=== PATIENT | male | born 1930 | race Caucasian/White ===

== ENCOUNTER 2016-07-07 12:12 | Inpatient (IN) | payer MEDICARE, OTHER ==
[~2016-07-07] VITALS: Ht 177.8 cm; Wt 74.5 kg
[2016-07-07] MEDS ORDERED: ASPIRIN 81 MG CHEW TABLET As Ordered ONE (12:41)
[2016-07-07 13:04] LABS: DIFF SLIDE NUMBER 277; MEAN CORPUSCULAR HEMOGLOBIN 24.9 pg (27.0-33.0); MEAN CORPUSCULAR HGB CONC 29.8 g/dl (32.0-36.5); MEAN CORPUSCULAR VOLUME 83.6 fl (80.0-96.0); PLATELET COUNT, AUTOMATED 139 k/mm3 (150-450); RED CELL DISTRIBUTION WIDTH 17.2 % (11.5-14.5); WHITE BLOOD COUNT 4.6 K/mm3 (4.0-10.0)
[2016-07-07 13:08] LABS: ANION GAP 9 MEQ/L (8-16); BLOOD UREA NITROGEN 25 MG/DL (7-18); CALCIUM LEVEL 8.7 MG/DL (8.8-10.2); CARBON DIOXIDE LEVEL 26 MEQ/L (21-32); CHLORIDE LEVEL 106 MEQ/L (98-107); GLOMERULAR FILTRATION RATE 55.7 (>35); GLUCOSE, FASTING 82 MG/DL (83-110); POTASSIUM SERUM 4.1 MEQ/L (3.5-5.1); SODIUM LEVEL 141 MEQ/L (136-145)
--- NOTE | 2016-07-07 13:13 | REP ---
Clinical: Chest pain . Comparison: 09/24/2011 . Findings: The mediastinum and cardiac silhouette are stable and within normal limits for portable technique. The lung benites are clear without acute consolidation, effusion, or pneumothorax. Skeletal structures are intact. Impression: Normal portable chest x-ray Signed by Hector Edmond MD 07/07/2016 01:04 P
[2016-07-07] MEDS ORDERED: ISOVUE-370 76% 100ML VIAL (Q9967) As Ordered ONE (13:17)
[2016-07-07 13:38] LABS: BANDS 2 % (< 11); EOSINOPHILS 2 % (0-5); HYPOCHROMASIA 2+
[2016-07-07 13:39] LABS: ANISOCYTOSIS 2+; MICROCYTOSIS 2+; POIKILOCYTOSIS 1+
[2016-07-07] MEDS ORDERED: VITMTA PO (13:45)
[2016-07-07] MEDS ORDERED: LIAL1.2T PO (13:45)
--- NOTE | 2016-07-07 14:13 | REP ---
Clinical: Acute chest pain and shortness of breath . Technique: Axial contrast enhanced images from the thoracic inlet to the upper abdomen using 100 ml Isovue 370 intravenous contrast material with coronal and sagittal re-formations. Findings: Satisfactory enhancement of the pulmonary vasculature is achieved and no filling defects are identified to suggest pulmonary embolus. Thoracic aorta is normal caliber without aneurysm or dissection. Heart and pericardium are normal. Bilateral lung benites are well aerated and clear without acute pulmonary parenchymal consolidation or atelectasis. No nodule or mass lesion. No pleural effusion/reaction. No pneumothorax. No adenopathy. Impression: No evidence for pulmonary embolus. No acute pleuroparenchymal or mediastinal process. Signed by Hector Edmond MD 07/07/2016 02:05 P
[2016-07-07 14:47] LABS: ALBUMIN 3.6 GM/DL (3.2-5.2); AST/SGOT 26 U/L (15-37); BILIRUBIN,TOTAL 0.4 MG/DL (0.2-1.0)
[2016-07-07 14:49] LABS: INR 1.1
[2016-07-07 14:50] LABS: ALKALINE PHOSPHATASE 72 U/L (45-117); ALT/SGPT 21 U/L (12-78); BILIRUBIN,DIRECT 0.1 MG/DL (0.0-0.2); TOTAL PROTEIN 7.6 GM/DL (6.4-8.2)
[2016-07-07] MEDS ORDERED: ACETAMINOPHEN TAB 650MG DOSE (2X325MG) PO PRN (15:30)
[2016-07-07] MEDS ORDERED: ONDANSETRON 4MG/2ML VIAL (J2405) IV PRN (15:30)
--- NOTE | 2016-07-07 16:05 | HPEPDOC ---
Medical History and Physical Date of Admission Jul 07, 2016 at 15:30 History and Physical PRIMARY CARE PROVIDER: ATTENDING: Rhoda Beckford MD CHIEF COMPLAINT: CP/SOB HISTORY OF PRESENT ILLNESS: This is a 86 y/o male with a past medical history of ulcerative colitis, who presents complaining of chest pain and generalized weakness. Patient states she's been having dyspnea on exertion and exertional chest pain over the past month. Describes the pain is midsternal, nonradiating, exertional , nonreproducible, non-positional, nonpleuritic. The patient also has exertional dyspnea as well. No orthopnea or PND. No lower extremity edema. No syncopal episodes. Patient does have a history ulcerative colitis with last colonoscopy 5-6 years ago which she states was unremarkable. Patient follows up with his general passenger agent in [place]. Patient also has history of MDS, follows up with Dr. Arguello with next appointment in September. Has not required any prior transfusions. The patient has a good appetite and believes he lost 10 pounds since the Summer. Denies any melanotic stool/hematochezia/hematuria/hematemesis. PAST MEDICAL HISTORY:As per HPI SOCIAL HISTORY: FAMILY HISTORY:Non contributory ALLERGIES: Please see below. REVIEW OF SYSTEMS: HEENT: Denies sore throat/headache CARDIOVASCULAR: + chest pain on exertion. No palpitations RESPIRATORY: + DIAZ. No cough GASTROINTESTINAL: denies nausea/vomiting GENITOURINARY: Denies dysuria/urinary urgency. MUSCULOSKELETAL: Denies myalgias/arthralgias NEUROLOGICAL: Denies any focal weakness Rest of ROS negative. HOME MEDICATIONS: Please see below. PHYSICAL EXAMINATION: Vitals: (see below) General: No acute distress, laying comfortably in bed. HEENT: Moist mucous membranes. Neck: No JVD or lymphadenopathy Cardiac: RRR, 3/6 MARCELO 2nd RICS with radiation to the carotids. Pulm: Clear to auscultation b/l. No wheezing, rhonchi Abd: NT/ND + BS Ext: No edema or cyanosis LABORATORY DATA: See below. IMAGING: CTA chest 07/07/16 Impression: No evidence for pulmonary embolus. No acute pleuroparenchymal or mediastinal process. MICROBIOLOGY: Please see below. ASSESSMENT/PLAN: Symptomatic anemia- the patient denies any occult bleeding. Does have a history of ulcerative colitis however states his last flare was in the fall. No hematochezia/melanotic stools. No source of bleeding. FOBT positive in the ED per ED physician. Patient does have a history ulcerative colitis with increased risk of colon cancer. Will have surgery on board for possible colonoscopy during this admission. Patient is being transfused 2 units PRBC. CBC every 6 hours. Hemodynamically stable. History of MDS- MCV within normal limits. Follows up with Dr. Arguello outpatient. Ulcerative colitis- continue home meds DVT prophylaxis- SCDs Vital Signs BP 158/78, HR 84, RR 16, O2 sat 100% RA, Afebrile. Laboratory Data Labs 24H Laboratory Tests 2 07/07/16 12:35: Activated Partial Thromboplast Time 34.9, Aspartate Amino Transf (AST/SGOT) 26, Alanine Aminotransferase (ALT/SGPT) 21, Alkaline Phosphatase 72, Total Bilirubin 0.4, Direct Bilirubin 0.1, Albumin 3.6, Albumin/Globulin Ratio 0.90L, Anion Gap 9, Anisocytosis 2+, Atypical Lymphocytes 3, Band Neutrophils 2, Calcium Level 8.7L, Creatine Kinase MB 1.3, Creatine Kinase MB Relative Index 2.13, Eosinophils (Manual) 2, Glomerular Filtration Rate 55.7, Hypochromasia 2+ , Lymphocytes (Manual) 40, Metamyelocytes 3H, Microcytosis 2+, Monocytes (Manual ) 3, Myelocytes 5H, Neutrophils 41, Platelet Estimate DECREASED, Poikilocytosis 1+, Promyelocytes 1H, Prothromb Time International Ratio 1.10, Prothrombin Time 14.3, Total Creatine Kinase 61, Total Protein 7.6, Troponin I < 0.02 CBC/BMP Laboratory Tests 07/07/16 12:35 Red Blood Count 2.62 L, Mean Corpuscular Volume 83.6, Mean Corpuscular Hemoglobin 24.9 L, Mean Corpuscular Hemoglobin Concent 29.8 L, Red Cell Distribution Width 17.2 H Home Medications Scheduled Mesalamine (Lialda) 1.2 Gm Tab 1.2 GM PO BID Multivitamins *[facility] STOCKED* (Thera M Plus *[facility] STOCKED*) 1 Tab Tab 1 TAB PO DAILY Allergies Coded Allergies: No Known Allergies (Unverified , 07/07/16) RHODA BECKFORD MD Jul 07, 2016 16:05
[2016-07-07 20:00] VITALS: BP 144/65; PULSE 83
--- NOTE | 2016-07-07 20:15 | ECGEPIP ---
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
[2016-07-07] MEDS ORDERED: PANTOPRAZOLE 40MG INJ (PROTONIX) (C9113) As Ordered ONE (21:00)
[2016-07-07] MEDS: PANTOPRAZOLE 40MG INJ (PROTONIX) (C9113) IV SCH (21:03)
[2016-07-07] MEDS: MESALAMINE 400 MG CAPSULE DELAYED RELEASE (DELZICOL) PO SCH (21:03)
[2016-07-07 21:50] LABS: MEAN CORPUSCULAR VOLUME 84.6 fl (80.0-96.0); RED CELL DISTRIBUTION WIDTH 16.7 % (11.5-14.5); WHITE BLOOD COUNT 4.7 K/mm3 (4.0-10.0)
[2016-07-08] VITALS: BP 151/68; PULSE 87
[2016-07-08 01:53] LABS: MEAN CORPUSCULAR HEMOGLOBIN 26.8 pg (27.0-33.0); MEAN CORPUSCULAR VOLUME 83.8 fl (80.0-96.0); RED CELL DISTRIBUTION WIDTH 16.8 % (11.5-14.5); WHITE BLOOD COUNT 4.4 K/mm3 (4.0-10.0)
[2016-07-08 04:00] VITALS: BP 149/69; PULSE 82
[2016-07-08 06:48] LABS: MEAN CORPUSCULAR HEMOGLOBIN 26.6 pg (27.0-33.0); MEAN CORPUSCULAR HGB CONC 31.8 g/dl (32.0-36.5); MEAN CORPUSCULAR VOLUME 83.5 fl (80.0-96.0); RED CELL DISTRIBUTION WIDTH 16.8 % (11.5-14.5); WHITE BLOOD COUNT 4.1 K/mm3 (4.0-10.0)
[2016-07-08 07:01] LABS: ALBUMIN 3.2 GM/DL (3.2-5.2); ALBUMIN/GLOBULIN RATIO 0.82 (1.00-1.93); BILIRUBIN,TOTAL 0.7 MG/DL (0.2-1.0); CALCIUM LEVEL 8.2 MG/DL (8.8-10.2); CREATININE FOR GFR 1.25 MG/DL (0.70-1.30); GLOMERULAR FILTRATION RATE 58.3 (>35); POTASSIUM SERUM 4.2 MEQ/L (3.5-5.1); TOTAL PROTEIN 7.1 GM/DL (6.4-8.2)
[2016-07-08 08:00] VITALS: BP 155/67
[2016-07-08] MEDS: PANTOPRAZOLE 40MG INJ (PROTONIX) (C9113) IV SCH ×2 (08:48→20:32)
[2016-07-08] MEDS: MESALAMINE 400 MG CAPSULE DELAYED RELEASE (DELZICOL) PO SCH ×2 (08:49→20:33)
--- NOTE | 2016-07-08 11:07 | CR ---
DATE OF CONSULTATION: 07/07/2016 REASON FOR CONSULTATION: Anemia, possible GI bleeding. HISTORY OF PRESENT ILLNESS: The patient is an 86-year-old man who presented to the emergency department with what he described as a month or month and a half of some dyspnea on exertion with some chest discomfort. The pain was intermittent as was the shortness of breath and completely associated with exertion. He denied any chest discomfort at rest. He has been feeling somewhat weaker. He has a history of a myelodysplastic syndrome and has previously undergone a bone marrow biopsy with hematology/oncology. He also has a history of longstanding ulcerative colitis. His most recent colonoscopy done locally was in 2007, though the patient reports that he has had his most recent colonoscopy in [place] about 5 years ago. The patient reports that he has had a mild weight loss. He has not noticed any melena or hematochezia. He denies any abdominal pain. He presented to the emergency department where he was found to have a hematocrit of approximately 21%. He is being admitted for a transfusion and further evaluation. I was asked to evaluate the patient as well regarding potential bleeding. MEDICATIONS: Are as listed in his chart. ALLERGIES: No known drug allergies. MEDICAL HISTORY: Significant for his history of ulcerative colitis. He has a history of myelodysplastic syndrome, though apparently this was mild and he has not previously required transfusion. PAST SURGICAL HISTORY: The patient has had multiple colonoscopies. He has had transrectal ultrasound guided biopsy of prostate. REVIEW OF SYSTEMS: Reveals no history of prior palpitations or angina. Prior to his current symptoms, he has not complained of any dyspnea on exertion. He denies any cough or sputum production. He denies any dysuria or hematuria. He has occasional bouts of diarrhea but has not noticed any rectal bleeding or melena. Denies any significant bone or joint problems. Remainder of the review of systems is unremarkable. PHYSICAL EXAM: Shows a pleasant, alert, elderly man lying quietly on the ER stretcher. He is accompanied by a woman I take to be his spouse as well as two younger woman. He is alert, oriented and cooperative. Sclerae are anicteric. Mucous membranes are moist. He has several slightly raised and ulcerated or crusted lesions of the forehead and left side of the neck that I suspect are small superficial skin cancers. Heart exam shows a regular rhythm. He does have a 2-3/6 systolic murmur. Lungs are clear to auscultation bilaterally. The abdomen is thin, soft and nontender. Extremities are without edema. His laboratory studies show a white count of 4.6 with a hemoglobin of 6.5, hematocrit of 21.9 and a platelet count of 139,000. His differential shows 41% neutrophils, 40% lymphocytes, 2% bands, 3% monocytes and 2% eosinophils. Chemistry profile shows a sodium of 141, potassium 4.1, chloride 106, CO2 of 26, BUN of 25, creatinine 1.3 and glucose of 82. His liver function tests are normal and the protein is 7.6 with an albumin of 3.6. PT/INR and PTT are normal. Chest x-ray done portably in the emergency department showed no abnormalities. A CT angiography of the chest was also obtained today which showed no evidence of pulmonary embolus with no acute pulmonary process. IMPRESSION: 1. Marked symptomatic anemia with exertional shortness of breath and chest discomfort. 2. History of myelodysplastic syndrome. 3. Long standing ulcerative colitis. 4. Benign prostatic hyperplasia. RECOMMENDATIONS: Certainly the patient requires transfusion given his significant symptoms, his advanced age, and his markedly low hemoglobin and hematocrit. The patient does have a history of ulcerative colitis so it is certainly possible that he has some subclinical blood loss. His most recent colonoscopy done in [place] was about 5 years ago by his recollection. He has not noticed any gross blood and he denies any abdominal pain. He had a digital rectal examination in the emergency department which reportedly showed guaiac positive material without gross blood. It may be that the patient's anemia is due to his myelodysplastic syndrome, perhaps with acute worsening. Certainly this will require further evaluation. He certainly does not appear to require any urgent surgical intervention. It may be appropriate for him to have a further evaluation endoscopically at some point in his evaluation. I will check back on the patient tomorrow to see what his status is at that time.
[2016-07-08 12:00] VITALS: BP 122/58
--- NOTE | 2016-07-08 15:54 | IPNPDOC ---
Subjective Date Seen The patient was seen on 07/08/16. Subjective Chief Complaint/HPI The patient is a 86-year-old male admitted with a reason for visit of Chest Pain ; Gi Bleed. General: Denies: Chills, Night Sweats Constitutional: Denies: Chills, Fever Eyes: Denies: Pain, Vision change ENT: Denies: Ear Pain, Head Aches Skin: Denies: Lesions, Rash Pulmonary: Denies: Cough, Dyspnea Cardiovascular: Denies: Chest Pain, Palpitations Gastrointestinal: Denies: Nausea, Vomiting Hematologic: Denies: Bleeding Excessively, Bruising Objective Physical Examination General Exam: Positive: Alert, Cooperative, No Acute Distress ENT Exam: Positive: Atraumatic, Mucous membr. moist/pink Neck Exam: Negative: JVD Chest Exam: Positive: Clear to auscultation, Normal air movement Heart Exam: Positive: Normal S1, Normal S2, Rate Normal Abdomen Exam: Positive: Tenderness, Negative: Soft Extremity Exam: Negative: Swelling, Tenderness Assessment /Plan Plan/VTE VTE Prophylaxis Ordered?: Yes Plan Symptomatic anemia possibly 2/2 underlying MDS, with Hx of Ulcerative Colitis No signs of overt bleeding noted during admission, however the patient is noted to be FOBT positive 2 units of packed red blood cells transfused Patient remains hemodynamically stable at this time We will continue to monitor the patient's hemoglobin level History of MDS MCV within normal limits Follows up with Dr. Arguello outpatient. Ulcerative colitis Continue mesalamine DVT prophylaxis- SCDs Disposition-patient's diet advanced, anticipate discharge in the next 24 hours if the patient remains hemodynamically stable. VS, I&O, 24H, Mona Vital Signs/I&O Vital Signs Date Time Temp Pulse Resp B/P Pulse Ox O2 Delivery O2 Flow Rate FiO2 07/08/16 12:00 96.8 77 18 122/58 98 Room Air I&O- Last 24 Hours up to 6 AM 07/08/16 06:00 Intake Total 600 ml Output Total 1825 ml Balance -1225 ml Laboratory Data 24H LABS Laboratory Tests 2 07/08/16 06:22: Blood Urea Nitrogen 20H, Creatinine 1.25, Sodium Level 141, Potassium Level 4.2 , Chloride Level 108H, Carbon Dioxide Level 26, Calcium Level 8.2L, Aspartate Amino Transf (AST/SGOT) 19, Alanine Aminotransferase (ALT/SGPT) 19, Alkaline Phosphatase 66, Total Bilirubin 0.7#, Total Protein 7.1, Albumin 3.2, Albumin/ Globulin Ratio 0.82L, Anion Gap 7L, Glomerular Filtration Rate 58.3 CBC/BMP Laboratory Tests 07/07/16 21:16 Red Blood Count 3.12 L, Mean Corpuscular Volume 84.6, Mean Corpuscular Hemoglobin 27.0, Mean Corpuscular Hemoglobin Concent 32.0, Red Cell Distribution Width 16.7 H 07/08/16 01:42 Red Blood Count 3.06 L, Mean Corpuscular Volume 83.8, Mean Corpuscular Hemoglobin 26.8 L, Mean Corpuscular Hemoglobin Concent 32.0, Red Cell Distribution Width 16.8 H 07/08/16 06:22 Red Blood Count 3.17 L, Mean Corpuscular Volume 83.5, Mean Corpuscular Hemoglobin 26.6 L, Mean Corpuscular Hemoglobin Concent 31.8 L, Red Cell Distribution Width 16.8 H, Calcium Level 8.2 L, Aspartate Amino Transf (AST/SGOT ) 19, Alanine Aminotransferase (ALT/SGPT) 19, Alkaline Phosphatase 66, Total Bilirubin 0.7 #, Total Protein 7.1, Albumin 3.2 QUINTON JEONG MD Jul 08, 2016 15:54
[2016-07-08 16:15] LABS: INR 1.13
[2016-07-08 16:26] LABS: MEAN CORPUSCULAR HEMOGLOBIN 26.6 pg (27.0-33.0); MEAN CORPUSCULAR HGB CONC 31.5 g/dl (32.0-36.5); MEAN CORPUSCULAR VOLUME 84.5 fl (80.0-96.0); RED CELL DISTRIBUTION WIDTH 16.9 % (11.5-14.5); WHITE BLOOD COUNT 3.8 K/mm3 (4.0-10.0)
--- NOTE | 2016-07-08 17:13 | EDDOCDS ---
Nurse's Notes [facility] Name: Chloe Torres Age: 86 yrs Sex: Male : 1930 Arrival Date: 07/07/2016 Time: 12:12 Bed Admit Hold Private MD: Kvng Thomas A. 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 Presenting complaint:. Aspirin was not taken prior to arrival. Adult Sepsis Screening: The patient does not have new or worsening altered mentation. Patient's respiratory rate is less than 22. Systolic blood pressure is greater than 100. Patient has a qSOFA score of 0- Negative Sepsis Screen. Suicide/Homicide risk assessment- the patient denies having any suicidal and/or homicidal ideations and does not present with any other emotional, behavioral or mental health complaints. Status: Patient is not a service assistant or dependent. Transition of care: patient was not received from another setting of care. 12:14 Acuity: NANCY Level 2 ml6 12:14 Method Of Arrival: Walkin/Carried/Asstd ml6 Triage Assessment: 12:25 General: Appears in no apparent distress, comfortable. Pain: Location: chest Pain ml6 currently is 5 out of 10 on a pain scale. Pain does not radiate. Quality of pain is described as aching. Neurological: No deficits noted. Cardiovascular: Capillary refill < 3 seconds is brisk in bilateral fingers toes Heart tones S1 S2 present Edema is absent. Pulses are all present. Chest pain is described as mild, quality is pressure, is located in anterior chest wall radiates Does not radiate. episodes are continuous began 2 hours prior to arrival. Respiratory: Airway is patent Respiratory effort is even, unlabored, Respiratory pattern is regular, symmetrical, Breath sounds are clear bilaterally. Historical: - Allergies: no known allergies; - Home Meds: 1. Lialda 1.2 gram oral TbEC twice a day (Last dose: 07/07/2016 07:00) - PMHx: IBS; [place]; - PSHx: Colonoscopy; - Social history: Smoking status: Patient uses tobacco products, current some day smoker. No barriers to communication noted, The patient speaks fluent Grenadian, Speaks appropriately for age. - : The pt / caregiver states he / she is not on anticoagulants. Home medication list is obtained from the patient. - Exposure Risk Screening:: None identified. Screenin:48 Screening information is obtained from the patient. Fall risk: No risks identified. hs1 Assistance ADL's: requires no assistance with activities of daily living. Abuse/DV Screen: The patient / caregiver reports he/she is: not in a situation that causes fear, pain or injury. Nutritional screening: No deficits noted. Advance Directives: There is no active DNR order. home support is adequate. Assessment: 12:46 General: Appears in no apparent distress, comfortable, Behavior is appropriate for age, hs1 cooperative. 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 Gait is steady, Reports feeling tired all the time. "Blah" feeling. Cardiovascular: Rhythm is sinus rhythm Chest pain is denied. Respiratory: Airway is patent Respiratory effort is even, unlabored, Respiratory pattern is regular, symmetrical. 13:50 General: Appears patient transported to CT at this time. Tolerated test with no issues. hs1 Patient aware of waiting for radiology results and is also aware of admission at this time. Patient has no other questions or needs. . 14:52 General: Appears in no apparent distress, comfortable, Behavior is appropriate for age, hs1 cooperative, pleasant. Pain: Denies pain. Neurological: No deficits noted. Cardiovascular: Rhythm is sinus rhythm No ectopy. Respiratory: No deficits noted. Airway is patent Respiratory effort is even, unlabored, Respiratory pattern is regular, symmetrical. Derm: Skin is pink, warm & dry. normal. 15:53 General: Appears in no apparent distress, comfortable, Behavior is appropriate for age, hs1 cooperative. Pain: Denies pain. Cardiovascular: Rhythm is sinus rhythm No ectopy. Respiratory: Airway is patent Respiratory effort is even, unlabored, Respiratory pattern is regular, symmetrical. Derm: Skin is pink, warm & dry. normal. Vital Signs: 12:14 BP 158 / 78; Pulse 98; Resp 18; Temp 96.7(O); Pulse Ox 100% on R/A; Weight 65.32 kg jrd (R); Height 5 ft. 10 in. (177.80 cm); Pain 2/10; 12:39 BP 133 / 62 (auto/); hs1 12:40 Pulse 84 MON; Pulse Ox 100% ; hs1 12:54 BP 129 / 63 (auto/); hs1 12:54 Pulse 84 MON; Pulse Ox 99% ; hs1 13:09 BP 139 / 65 (auto/); hs1 13:09 Pulse 80 MON; Pulse Ox 98% ; hs1 13:24 Pulse 88 MON; Pulse Ox 100% ; hs1 13:24 BP 132 / 59 (auto/); hs1 13:39 BP 130 / 58 (auto/); hs1 13:40 Pulse 82 MON; Pulse Ox 98% ; hs1 13:53 Pulse 86 MON; Pulse Ox 98% ; hs1 13:54 BP 123 / 59 (auto/); hs1 14:09 BP 141 / 62 (auto/); hs1 14:10 Pulse 86 MON; Pulse Ox 100% ; hs1 14:24 BP 139 / 65 (auto/); hs1 14:25 Pulse 86 MON; Pulse Ox 99% ; hs1 14:39 BP 136 / 65 (auto/); hs1 14:40 Pulse 84 MON; Pulse Ox 99% ; hs1 14:54 BP 143 / 64 (auto/); hs1 14:55 Pulse 84 MON; Pulse Ox 99% ; hs1 15:09 BP 131 / 77 (auto/); hs1 15:09 Pulse 86 MON; Pulse Ox 99% ; hs1 15:24 BP 138 / 65 (auto/); hs1 15:25 Pulse 88 MON; Pulse Ox 99% ; hs1 15:39 BP 141 / 69 (auto/); hs1 15:39 Pulse 90 MON; Resp 18; Temp 96.9(O); Pulse Ox 99% ; Pain 0/10; hs1 12:14 Body Mass Index 20.66 (65.32 kg, 177.80 cm) jrd Vitals: 12:14 Log In Time: July 07, 2016 at 12:10. RN notified that patient meets Red Flag jrd criteria. ED Course: 12:13 Patient visited by Tony Wu PCA. jrd 12:13 Patient moved to Waiting jrd 12:14 Kvng Thomas is Private Physician. jrd 12:15 Devi, Sherri, RN is Primary Nurse. ml6 12:15 Glenn Acuña MD is Attending Physician. br1 12:15 Patient moved to 14 ml6 12:16 Patient visited by Tony Wu PCA. jrd 12:23 Triage Initiated ml6 12:24 EKG done. (by ED staff). Reviewed by Glenn Acuña MD. jml1 12:26 Patient visited by Jose Armando Prado. jml1 12:28 Patient visited by Glenn Acuña MD. br1 12:38 Basic Metabolic Profile Sent. mb9 12:38 CBC with Diff Sent. mb9 12:38 Cardiac Injury Profile Sent. mb9 12:38 Troponin Sent. mb9 12:38 Inserted saline lock: 18 gauge in left forearm and blood collected. The patient mb9 tolerated the procedure well. 13:26 Type and Cross, Packed Cells Sent. srm 13:26 TYPE & SCREEN Sent. srm 13:26 DIFFERENTIAL NO CHARGE Sent. srm 13:26 PTT Sent. srm 13:26 PT/INR Sent. srm 13:27 Patient visited by Glenn Acuña MD. br1 13:34 COUNT INCLUDES THE [facility] Payment Agreement was scanned into [email or web address] and attached to record. lg 13:48 The patient / caregiver is instructed regarding the plan of care and ED course. Cardiac hs1 monitor on. Pulse ox on. NIBP on. 13:51 Chest, 1 View Returned. EDMS 14:03 Patient visited by Sherri Quinonez RN. hs1 14:27 Chris Beckford is Hospitalizing Provider. br1 14:36 CT Chest Angio R/O PE Returned. EDMS 16:47 Patient moved to 20 kcs 21:07 EKG-ADULT Returned. EDMS 21:09 Patient moved to Admit Hold sls1 07/08 00:46 Primary Nurse role handed off by Sherri Quinonez RN sls1 Administered Medications: 07/07 12:46 Drug: Aspirin 324 mg [aspirin 81 mg chewable tablet (4 tabs)] Route: PO; hs1 Order Results: Lab Order: Basic Metabolic Profile; SPEC'M 07/07/16 12:35 Test: GLUCOSE, FASTING; Value: 82; Range: 83-110; Abnormal: Below low normal; Units: MG/DL; Status: F Test: BLOOD UREA NITROGEN; Value: 25; Range: 7-18; Abnormal: Above high normal; Units: MG/DL; Status: F Test: CREATININE FOR GFR; Value: 1.30; Range: 0.70-1.30; Units: MG/DL; Status: F Test: GLOMERULAR FILTRATION RATE; Value: 55.7; Range: >35; Status: F Test: SODIUM LEVEL; Value: 141; Range: 136-145; Units: MEQ/L; Status: F Test: POTASSIUM SERUM; Value: 4.1; Range: 3.5-5.1; Units: MEQ/L; Status: F Test: CHLORIDE LEVEL; Value: 106; Range: 98-107; Units: MEQ/L; Status: F Test: CARBON DIOXIDE LEVEL; Value: 26; Range: 21-32; Units: MEQ/L; Status: F Test: ANION GAP; Value: 9; Range: 8-16; Units: MEQ/L; Status: F Test: CALCIUM LEVEL; Value: 8.7; Range: 8.8-10.2; Abnormal: Below low normal; Units: MG/DL; Status: F Test Note: ; Units are mL/min/1.73 m2 Chronic Kidney Disease Staging per NKF: Stage I & II GFR >=60 Normal to Mildly Decreased Stage III GFR 30-59 Moderately Decreased Stage IV GFR 15-29 Severely Decreased Stage V GFR <15 Very Little GFR Left ESRD GFR <15 on DIRECTOR OF EXHIBITS Test: AST/SGOT; Range: 15-37; Units: U/L; Status: I Test: ALT/SGPT; Range: 12-78; Units: U/L; Status: I Test: ALKALINE PHOSPHATASE; Range: 45-117; Units: U/L; Status: I Test: BILIRUBIN,TOTAL; Range: 0.2-1.0; Units: MG/DL; Status: I Test: BILIRUBIN,DIRECT; Range: 0.0-0.2; Units: MG/DL; Status: I Test: TOTAL PROTEIN; Range: 6.4-8.2; Units: GM/DL; Status: I Test: ALBUMIN; Range: 3.2-5.2; Units: GM/DL; Status: I Test: ALBUMIN/GLOBULIN RATIO; Range: 1.00-1.93; Status: I Lab Order: CBC with Diff; SPEC'M 07/07/16 12:35 Test: WHITE BLOOD COUNT; Value: 4.6; Range: 4.0-10.0; Units: K/mm3; Status: F Test: RED BLOOD COUNT; Value: 2.62; Range: 4.30-6.10; Abnormal: Below low normal; Units: M/mm3; Status: F Test: HEMOGLOBIN; Value: 6.5; Range: 14.0-18.0; Abnormal: Critical Low; Units: g/dl; Status: F Test: HEMATOCRIT; Value: 21.9; Range: 42.0-52.0; Abnormal: Below low normal; Units: %; Status: F Test: MEAN CORPUSCULAR VOLUME; Value: 83.6; Range: 80.0-96.0; Units: fl; Status: F Test: MEAN CORPUSCULAR HEMOGLOBIN; Value: 24.9; Range: 27.0-33.0; Abnormal: Below low normal; Units: pg; Status: F Test: MEAN CORPUSCULAR HGB CONC; Value: 29.8; Range: 32.0-36.5; Abnormal: Below low normal; Units: g/dl; Status: F Test: RED CELL DISTRIBUTION WIDTH; Value: 17.2; Range: 11.5-14.5; Abnormal: Above high normal; Units: %; Status: F Test: PLATELET COUNT, AUTOMATED; Value: 139; Range: 150-450; Abnormal: Below low normal; Units: k/mm3; Status: F Test: NEUTROPHILS; Value: 41; Range: 35-75; Units: %; Status: F Test: BANDS; Value: 2; Range: < 11; Units: %; Status: F Test: LYMPHOCYTES; Value: 40; Range: 16-52; Units: %; Status: F Test: MONOCYTES; Value: 3; Range: 0-8; Units: %; Status: F Test: EOSINOPHILS; Value: 2; Range: 0-5; Units: %; Status: F Test: METAMYELOCYTES; Value: 3; Range: 0-0; Abnormal: Above high normal; Units: %; Status: F Test: MYELOCYTES; Value: 5; Range: 0-0; Abnormal: Above high normal; Units: %; Status: F Test: PROMYELOCYTES; Value: 1; Range: 0-0; Abnormal: Above high normal; Units: %; Status: F Test: ATYPICAL LYMPH; Value: 3; Range: 0-5; Units: %; Status: F Test: HYPOCHROMASIA; Value: 2+; Status: F Test: POIKILOCYTOSIS; Value: 1+; Status: F Test: ANISOCYTOSIS; Value: 2+; Status: F Test: MICROCYTOSIS; Value: 2+; Status: F Lab Order: Cardiac Injury Profile; [facility] 07/07/16 12:35 Test: CPK CREATINE PHOSPHOKINASE; Value: 61; Range: 39-308; Units: U/L; Status: F Test: CK-MB VALUE MASS; Value: 1.3; Range: 0.0-3.6; Units: NG/ML; Status: F Test: MB/CK RELATIVE INDEX; Value: 2.13; Range: < OR =4; Status: F Test Note: ; DIAGNOSIS CRITERIA MMB ng/ml Relative Index (RI) NON-AMI < or = 5 N/A [place] > 5 < or = 4 AMI > 5 > 4 Lab Order: Troponin; [facility] 07/07/16 12:35 Test: TROPONIN I; Value: < 0.02; Range: < 0.10; Units: NG/ML; Status: F Test Note: ; Troponin I Reference Interval for Vivint LOCI: 99th Percentile= 0.00-0.045 ng/ml Risk Stratification: <= 0.10 ng/ml Decreased Risk for Adverse Clinical Events. 0.10-1.50 ng/ml Increased Risk for Adverse Clinical Events. Evaluation of additional criterion and/or repeat testing in 2-6 hours is suggested to rule out myocardial damage. >= 1.50 ng/ml Indicative of Myocardial Injury. Lab Order: PLATELET ESTIMATE; [facility] 07/07/16 12:35 Test: PLATELET ESTIMATE; Value: DECREASED; Range: NORMAL; Status: F Lab Order: TYPE & SCREEN; [facility] 07/07/16 13:24 Test: BLOOD TYPE; Value: A POS; Status: F Test: AB SCREEN (INDIRECT KOBE)VIS; Value: NEGATIVE; Status: F Test: IMMEDIATE SPIN CROSSMATCH; Value: [id number] A POSITIVE Compatible? Y; Status: F Test: IMMEDIATE SPIN CROSSMATCH; Value: [id number] A POSITIVE Compatible? Y; Status: F Lab Order: PT/INR; [facility] 07/07/16 12:35 Test: PROTHROMBIN TIME; Value: 14.3; Range: 12.3-14.5; Units: SECONDS; Status: F Test: INR; Value: 1.10; Status: F Test Note: ; THERAPUTIC HUMAN INR VALUES INDICATIONS NORMAL RANGES PROPHYLAXIS/TREATMENT OF: VENOUS THROMBOSIS 2.0-3.0 PULMONARY EMBOLISM 2.0-3.0 PREVENTION OF SYSTEMIC EMBOLISM FROM: TISSUE HEART VALVES 2.0-3.0 ACUTE MYOCARDIAL INFARCTION 2.0-3.0 VALVULAR HEART DISEASE 2.0-3.0 ATRIAL FIBRILLATION 2.0-3.0 MECHANICAL VALVES(HIGH RISK) 2.5-3.5 RECURRENT MYOCARDIAL INFARCTION 2.5-3.5 Lab Order: PTT; [facility] 07/07/16 12:35 Test: PARTIAL THROMBOPLASTIN TIME; Value: 34.9; Range: 26.6-37.1; Units: SECONDS; Status: F Lab Order: LIVER PROFILE; [facility] 07/07/16 12:35 Test: AST/SGOT; Value: 26; Range: 15-37; Units: U/L; Status: F Test: ALT/SGPT; Value: 21; Range: 12-78; Units: U/L; Status: F Test: ALKALINE PHOSPHATASE; Value: 72; Range: 45-117; Units: U/L; Status: F Test: BILIRUBIN,TOTAL; Value: 0.4; Range: 0.2-1.0; Units: MG/DL; Status: F Test: BILIRUBIN,DIRECT; Value: 0.1; Range: 0.0-0.2; Units: MG/DL; Status: F Test: TOTAL PROTEIN; Value: 7.6; Range: 6.4-8.2; Units: GM/DL; Status: F Test: ALBUMIN; Value: 3.6; Range: 3.2-5.2; Units: GM/DL; Status: F Test: ALBUMIN/GLOBULIN RATIO; Value: 0.90; Range: 1.00-1.93; Abnormal: Below low normal; Status: F Lab Order: COMPLETE BLOOD COUNT; [facility] 07/07/16 21:16 Test: WHITE BLOOD COUNT; Value: 4.7; Range: 4.0-10.0; Units: K/mm3; Status: F Test: RED BLOOD COUNT; Value: 3.12; Range: 4.30-6.10; Abnormal: Below low normal; Units: M/mm3; Status: F Test: HEMOGLOBIN; Value: 8.4; Range: 14.0-18.0; Abnormal: Below low normal; Units: g/dl; Status: F Test: HEMATOCRIT; Value: 26.4; Range: 42.0-52.0; Abnormal: Below low normal; Units: %; Status: F Test: MEAN CORPUSCULAR VOLUME; Value: 84.6; Range: 80.0-96.0; Units: fl; Status: F Test: MEAN CORPUSCULAR HEMOGLOBIN; Value: 27.0; Range: 27.0-33.0; Units: pg; Status: F Test: MEAN CORPUSCULAR HGB CONC; Value: 32.0; Range: 32.0-36.5; Units: g/dl; Status: F Test: RED CELL DISTRIBUTION WIDTH; Value: 16.7; Range: 11.5-14.5; Abnormal: Above high normal; Units: %; Status: F Test: PLATELET COUNT, AUTOMATED; Value: 123; Range: 150-450; Abnormal: Below low normal; Units: k/mm3; Status: F Lab Order: COMPLETE BLOOD COUNT; [facility] 07/08/16 01:42 Test: WHITE BLOOD COUNT; Value: 4.4; Range: 4.0-10.0; Units: K/mm3; Status: F Test: RED BLOOD COUNT; Value: 3.06; Range: 4.30-6.10; Abnormal: Below low normal; Units: M/mm3; Status: F Test: HEMOGLOBIN; Value: 8.2; Range: 14.0-18.0; Abnormal: Below low normal; Units: g/dl; Status: F Test: HEMATOCRIT; Value: 25.6; Range: 42.0-52.0; Abnormal: Below low normal; Units: %; Status: F Test: MEAN CORPUSCULAR VOLUME; Value: 83.8; Range: 80.0-96.0; Units: fl; Status: F Test: MEAN CORPUSCULAR HEMOGLOBIN; Value: 26.8; Range: 27.0-33.0; Abnormal: Below low normal; Units: pg; Status: F Test: MEAN CORPUSCULAR HGB CONC; Value: 32.0; Range: 32.0-36.5; Units: g/dl; Status: F Test: RED CELL DISTRIBUTION WIDTH; Value: 16.8; Range: 11.5-14.5; Abnormal: Above high normal; Units: %; Status: F Test: PLATELET COUNT, AUTOMATED; Value: 115; Range: 150-450; Abnormal: Below low normal; Units: k/mm3; Status: F Lab Order: COMPLETE BLOOD COUNT; [facility] 07/08/16 15:56 Test: WHITE BLOOD COUNT; Value: 3.8; Range: 4.0-10.0; Abnormal: Below low normal; Units: K/mm3; Status: F Test: RED BLOOD COUNT; Value: 3.09; Range: 4.30-6.10; Abnormal: Below low normal; Units: M/mm3; Status: F Test: HEMOGLOBIN; Value: 8.2; Range: 14.0-18.0; Abnormal: Below low normal; Units: g/dl; Status: F Test: HEMATOCRIT; Value: 26.1; Range: 42.0-52.0; Abnormal: Below low normal; Units: %; Status: F Test: MEAN CORPUSCULAR VOLUME; Value: 84.5; Range: 80.0-96.0; Units: fl; Status: F Test: MEAN CORPUSCULAR HEMOGLOBIN; Value: 26.6; Range: 27.0-33.0; Abnormal: Below low normal; Units: pg; Status: F Test: MEAN CORPUSCULAR HGB CONC; Value: 31.5; Range: 32.0-36.5; Abnormal: Below low normal; Units: g/dl; Status: F Test: RED CELL DISTRIBUTION WIDTH; Value: 16.9; Range: 11.5-14.5; Abnormal: Above high normal; Units: %; Status: F Test: PLATELET COUNT, AUTOMATED; Value: 123; Range: 150-450; Abnormal: Below low normal; Units: k/mm3; Status: F Lab Order: COMPLETE BLOOD COUNT; [facility] 07/08/16 06:22 Test: WHITE BLOOD COUNT; Value: 4.1; Range: 4.0-10.0; Units: K/mm3; Status: F Test: RED BLOOD COUNT; Value: 3.17; Range: 4.30-6.10; Abnormal: Below low normal; Units: M/mm3; Status: F Test: HEMOGLOBIN; Value: 8.4; Range: 14.0-18.0; Abnormal: Below low normal; Units: g/dl; Status: F Test: HEMATOCRIT; Value: 26.5; Range: 42.0-52.0; Abnormal: Below low normal; Units: %; Status: F Test: MEAN CORPUSCULAR VOLUME; Value: 83.5; Range: 80.0-96.0; Units: fl; Status: F Test: MEAN CORPUSCULAR HEMOGLOBIN; Value: 26.6; Range: 27.0-33.0; Abnormal: Below low normal; Units: pg; Status: F Test: MEAN CORPUSCULAR HGB CONC; Value: 31.8; Range: 32.0-36.5; Abnormal: Below low normal; Units: g/dl; Status: F Test: RED CELL DISTRIBUTION WIDTH; Value: 16.8; Range: 11.5-14.5; Abnormal: Above high normal; Units: %; Status: F Test: PLATELET COUNT, AUTOMATED; Value: 117; Range: 150-450; Abnormal: Below low normal; Units: k/mm3; Status: F Lab Order: COMPLETE COMPHRENSIVE METABOLI; SPEC'M 07/08/16 06:22 Test: GLUCOSE, FASTING; Value: 82; Range: 83-110; Abnormal: Below low normal; Units: MG/DL; Status: F Test: BLOOD UREA NITROGEN; Value: 20; Range: 7-18; Abnormal: Above high normal; Units: MG/DL; Status: F Test: CREATININE FOR GFR; Value: 1.25; Range: 0.70-1.30; Units: MG/DL; Status: F Test: GLOMERULAR FILTRATION RATE; Value: 58.3; Range: >35; Status: F Test: SODIUM LEVEL; Value: 141; Range: 136-145; Units: MEQ/L; Status: F Test: POTASSIUM SERUM; Value: 4.2; Range: 3.5-5.1; Units: MEQ/L; Status: F Test: CHLORIDE LEVEL; Value: 108; Range: 98-107; Abnormal: Above high normal; Units: MEQ/L; Status: F Test: CARBON DIOXIDE LEVEL; Value: 26; Range: 21-32; Units: MEQ/L; Status: F Test: ANION GAP; Value: 7; Range: 8-16; Abnormal: Below low normal; Units: MEQ/L; Status: F Test: CALCIUM LEVEL; Value: 8.2; Range: 8.8-10.2; Abnormal: Below low normal; Units: MG/DL; Status: F Test: AST/SGOT; Value: 19; Range: 15-37; Units: U/L; Status: F Test: ALT/SGPT; Value: 19; Range: 12-78; Units: U/L; Status: F Test: ALKALINE PHOSPHATASE; Value: 66; Range: 45-117; Units: U/L; Status: F Test: BILIRUBIN,TOTAL; Value: 0.7; Range: 0.2-1.0; Abnormal: Delta; Units: MG/DL; Status: F Test: TOTAL PROTEIN; Value: 7.1; Range: 6.4-8.2; Units: GM/DL; Status: F Test: ALBUMIN; Value: 3.2; Range: 3.2-5.2; Units: GM/DL; Status: F Test: ALBUMIN/GLOBULIN RATIO; Value: 0.82; Range: 1.00-1.93; Abnormal: Below low normal; Status: F Test Note: ; Units are mL/min/1.73 m2 Chronic Kidney Disease Staging per NKF: Stage I & II GFR >=60 Normal to Mildly Decreased Stage III GFR 30-59 Moderately Decreased Stage IV GFR 15-29 Severely Decreased Stage V GFR <15 Very Little GFR Left ESRD GFR <15 on DIRECTOR OF EXHIBITS Lab Order: PROTHROMBIN TIME PROFILE\\E\\INR; SPEC'M 07/08/16 15:55 Test: PROTHROMBIN TIME; Value: 14.6; Range: 12.3-14.5; Abnormal: Above high normal; Units: SECONDS; Status: F Test: INR; Value: 1.13; Status: F Test Note: ; THERAPUTIC HUMAN INR VALUES INDICATIONS NORMAL RANGES PROPHYLAXIS/TREATMENT OF: VENOUS THROMBOSIS 2.0-3.0 PULMONARY EMBOLISM 2.0-3.0 PREVENTION OF SYSTEMIC EMBOLISM FROM: TISSUE HEART VALVES 2.0-3.0 ACUTE MYOCARDIAL INFARCTION 2.0-3.0 VALVULAR HEART DISEASE 2.0-3.0 ATRIAL FIBRILLATION 2.0-3.0 MECHANICAL VALVES(HIGH RISK) 2.5-3.5 RECURRENT MYOCARDIAL INFARCTION 2.5-3.5 Radiology Order: EKG-ADULT Test: EKG-ADULT REASON FOR EXAMINATION: Chest Pain; Stationary ECG Study; [facility] - ED; ; Test Date: 2016-07-07; Pat Name: CHLOE TORRES Department:; Room: -; Gender: M Inside Outside Sales Representative: URBANO; : 1930 Requested By: GLENN Tobar; Order Number: [id number] Reading MD: Jennifer Colon; Measurements; Intervals [place]; Rate: 93 P: 59; MS: 228 QRS: 20; QRSD: 86 T: 40; QT: 349; QTc: 434; Interpretive Statements; 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 The lung benites are clear without acute consolidation,; effusion, or pneumothorax. Skeletal structures are intact.; ; Impression:; Normal portable chest x-ray; ; ; Signed by; Hector Edmond MD 07/07/2016 01:04 P; Radiology Order: CT Chest Angio R/O PE Test: CT Chest Angio R/O PE REASON FOR EXAMINATION: Shortness of Breath;Chest Pain; Clinical: Acute chest pain and shortness of breath .; ; Technique: Axial contrast enhanced images from the thoracic inlet to the upper; abdomen using 100 ml Isovue 370 intravenous contrast material with coronal and; sagittal re-formations.; ; Findings: Satisfactory enhancement of the pulmonary vasculature is achieved and; no filling defects are identified to suggest pulmonary embolus. Thoracic aorta; is normal caliber without aneurysm or dissection. Heart and pericardium are; normal. Bilateral lung benites are well aerated and clear without acute pulmonary; parenchymal consolidation or atelectasis. No nodule or mass lesion. No pleural; effusion/reaction. No pneumothorax. No adenopathy.; ; Impression:; No evidence for pulmonary embolus.; No acute pleuroparenchymal or mediastinal process.; ; ; Signed by; Hector Edmond MD 07/07/2016 02:05 P; Outcome: 14:05 CT Study completed. hs1 14:27 Decision to Hospitalize by Provider. br1 07/08 17:13 Patient left the ED. ms2 Signatures: Dispatcher [employer] EDMS Yoli Rodriguez, RN RN kcs Farrukh Ceja RN RN ms2 Yudi Hunter RN RN [facility] Dorian Dow, Glenn Goel lg, MD MD br1 Francis King RN RN ml6 Sherri Quinonez RN RN hs1 Jessica Enamorado RN RN sls1 Jose Armando Prado jml1 Tony Wu PCA [employer] Will Elias,RN RN mb9 Corrections: (The following items were deleted from the chart) 07/07 14:36 13:26 LIVER PROFILE+LAB sent. [facility] EDFL MTDD
--- NOTE | 2016-07-08 17:13 | EDDOCDS ---
Physician Documentation [facility] Name: Saroj Jain Age: 86 yrs Sex: Male : 1930 Arrival Date: 07/07/2016 Time: 12:12 Bed Admit Hold Private MD: Kvng Thomas A. Disposition: 07/07/16 14:27 Hospitalization ordered by Chris Beckford for Inpatient Admission. Preliminary diagnosis are Gastrointestinal hemorrhage, unspecified, Anemia, unspecified, Chest pain, unspecified. - Bed requested for Admit. - Status is Inpatient Admission. ms2 - Condition is Stable. - Problem is new. - Symptoms are unchanged. Historical: - Allergies: no known allergies; - Home Meds: 1. Lialda 1.2 gram oral TbEC twice a day (Last dose: 07/07/2016 07:00) - PMHx: IBS; CHENEGA; - PSHx: Colonoscopy; - Social history: Smoking status: Patient uses tobacco products, current some day smoker. No barriers to communication noted, The patient speaks fluent German, Speaks appropriately for age. - : The pt / caregiver states he / she is not on anticoagulants. Home medication list is obtained from the patient. - Exposure Risk Screening:: None identified. Vital Signs: 07/07 12:14 BP 158 / 78; Pulse 98; Resp 18; Temp 96.7(O); Pulse Ox 100% on R/A; Weight 65.32 kg / jrd 144.01 lbs (R); Height 5 ft. 10 in. (177.80 cm); Pain 2/10; 12:39 BP 133 / 62 (auto/); hs1 12:40 Pulse 84 MON; Pulse Ox 100% ; hs1 12:54 BP 129 / 63 (auto/); hs1 12:54 Pulse 84 MON; Pulse Ox 99% ; hs1 13:09 BP 139 / 65 (auto/); hs1 13:09 Pulse 80 MON; Pulse Ox 98% ; hs1 13:24 Pulse 88 MON; Pulse Ox 100% ; hs1 13:24 BP 132 / 59 (auto/); hs1 13:39 BP 130 / 58 (auto/); hs1 13:40 Pulse 82 MON; Pulse Ox 98% ; hs1 13:53 Pulse 86 MON; Pulse Ox 98% ; hs1 13:54 BP 123 / 59 (auto/); hs1 14:09 BP 141 / 62 (auto/); hs1 14:10 Pulse 86 MON; Pulse Ox 100% ; hs1 14:24 BP 139 / 65 (auto/); hs1 14:25 Pulse 86 MON; Pulse Ox 99% ; hs1 14:39 BP 136 / 65 (auto/); hs1 14:40 Pulse 84 MON; Pulse Ox 99% ; hs1 14:54 BP 143 / 64 (auto/); hs1 14:55 Pulse 84 MON; Pulse Ox 99% ; hs1 15:09 BP 131 / 77 (auto/); hs1 15:09 Pulse 86 MON; Pulse Ox 99% ; hs1 15:24 BP 138 / 65 (auto/); hs1 15:25 Pulse 88 MON; Pulse Ox 99% ; hs1 15:39 BP 141 / 69 (auto/); hs1 15:39 Pulse 90 MON; Resp 18; Temp 96.9(O); Pulse Ox 99% ; Pain 0/10; hs1 12:14 Body Mass Index 20.66 (65.32 kg, 177.80 cm) jrd MDM: 12:16 Crystal Grinder/Pulse Ox/q 30 min VS ordered. br1 12:16 IV Saline Lock ordered. br1 12:16 Rhythm Strip to chart ordered. br1 12:16 Undress patient appropriately for examination ordered. br1 12:17 Basic Metabolic Profile Ordered. EDMS 12:17 CBC with Diff Ordered. EDMS 12:17 Cardiac Injury Profile Ordered. EDMS 12:17 Troponin Ordered. EDMS 12:17 ECG WITH READING ER PHYS+CARDIAG ordered. EDMS 12:30 Chest, 1 View Ordered. EDMS 12:37 Aspirin 324 mg PO once ordered. br1 12:50 Financial registration complete. lg 13:13 DIFFERENTIAL NO CHARGE Ordered. EDMS 13:13 PLATELET ESTIMATE Ordered. EDMS 13:14 Basic Metabolic Profile Reviewed. br1 13:14 CBC with Diff Reviewed. br1 13:14 Cardiac Injury Profile Reviewed. br1 13:14 Troponin Reviewed. br1 13:16 CT Chest Angio R/O PE Ordered. EDMS 13:17 Type and Cross, Packed Cells Ordered. EDMS 13:17 TYPE & SCREEN Ordered. EDMS 13:24 Transfuse PRBC's 2 units, ensure PRBCs ordered in lab ordered. br1 13:25 PT/INR Ordered. EDMS 13:25 PTT Ordered. EDMS 13:27 BED REQUEST+ADM ordered. EDMS 13:34 [facility] [place] Agreement was scanned into [employer] and attached to record. lg 13:42 CBC with Diff Reviewed. br1 13:42 PLATELET ESTIMATE Reviewed. br1 14:36 LIVER PROFILE Ordered. EDMS 15:07 Basic Metabolic Profile Reviewed. br1 15:07 LIVER PROFILE Reviewed. br1 15:07 Cardiac Injury Profile Reviewed. br1 15:07 Troponin Reviewed. br1 15:07 TYPE & SCREEN Reviewed. br1 15:07 PT/INR Reviewed. br1 15:07 PTT Reviewed. br1 15:07 Chest, 1 View Reviewed. br1 15:07 CT Chest Angio R/O PE Reviewed. br1 15:36 PHYSICAL THERAPY EVAL & TREAT ordered. EDMS 15:36 Admission / Observation Status ordered. EDMS 15:36 ECHOCARD,DOPPLER/COLOR FLOW ordered. EDMS 15:36 REGULAR DIET ordered. EDMS 15:37 COMPLETE BLOOD COUNT Ordered. EDMS 19:32 COMPLETE BLOOD COUNT Ordered. EDMS 19:32 COMPLETE BLOOD COUNT Ordered. EDMS 19:33 COMPLETE BLOOD COUNT Ordered. EDMS 19:33 COMPLETE COMPHRENSIVE METABOLI Ordered. EDMS 07/08 08:47 REGULAR DIET ordered. EDMS 13:55 PROTHROMBIN TIME PROFILE\E\INR Ordered. EDMS Administered Medications: 07/07 12:46 Drug: Aspirin 324 mg [aspirin 81 mg chewable tablet (4 tabs)] Route: PO; hs1 Signatures: Dispatcher [employer] EDWA Farrukh Ceja,CORBY RN ms2 Dorian Dow, Reg Reg lg Thanh Acuña MD MD br1 Francis King RN RN ml6 Maryann Salinas, STAFF PHARMACIST HOSPITAL STAFF PHARMACIST [facility]OSPITAL tmm1 Tony Wu, STAFF PHARMACIST HOSPITAL STAFF PHARMACIST [facility]OSPITAL jrd Farrukh Baumann RN RN [facility] Karin Zamora2 Sherri Quinonez RN hs1 The chart was reviewed and I authenticate all verbal orders and agree with the evaluation and treatment provided.Corrections: (The following items were deleted from the chart) 14:36 13:25 LIVER PROFILE+LAB ordered. EDMS EDMS 16:27 15:37 PROTHROMBIN TIME PROFILE\E\INR ordered. EDMS EDMS 07/08 06:35 07/07 19:32 COMPLETE BLOOD COUNT ordered. EDMS EDMS 07/08 08:47 07/07 15:37 NPO DIET ordered. EDMS EDMS 07/08 13:57 07/07 19:32 PROTHROMBIN TIME PROFILE\E\INR ordered. EDMS EDMS Attachments: 13:34 [facility] Payment Agreement lg MTDD
[2016-07-08 17:15] VITALS: BP 152/65
[2016-07-08 20:00] VITALS: BP 126/59
[2016-07-09] VITALS: BP 141/66
[2016-07-09 04:00] VITALS: BP 137/73
--- NOTE | 2016-07-09 06:03 | ECHO ---
DATE OF PROCEDURE: 07/08/2016 DATE OF : 1930 AGE: 86 REFERRING PROVIDER: Dr. Chris Beckford. PATIENT LOCATION: Room 4130. REASON FOR ECHOCARDIOGRAM: Heart murmur. 2D MEASUREMENTS: IVS: 1.2 cm LV: 4.4 cm LVPW: 1.2 cm LA: 3.9 cm Aorta: 3.1 cm IVC: 2.0 cm DOPPLER MEASUREMENTS: Peak velocity across the aortic valve: 3.3 m/s Peak velocity across the LVOT: 0.8 m/s Mitral E: 0.75 Mitral A: 1.0 Ratio 0.7 Maximum tricuspid valve velocity: 2.4 m/s 2D COMMENTS: 1. Normal left ventricular size and systolic function. Left ventricular wall thickness appeared to be mildly increased. The estimated global left ventricular ejection fraction is 65% to 70%. 2. Subjectively, the left atrium and the right atrium appeared to be minimally enlarged. Normal right ventricle. 3. The atrial septum appeared to be normal without evidence of defect or shunt. 4. Normal aortic root. 5. No pericardial effusion seen. 6. Moderately calcified aortic valve with decrease in leaflet motion. Mildly calcified mitral annulus with normal anterior mitral valve leaflet motion. Normal tricuspid valve. Normal pulmonic valve and proximal pulmonary artery branches. 7. The inferior vena cava was borderline enlarged. DOPPLER: It detects trace aortic regurgitation, trace mitral regurgitation, and mild tricuspid regurgitation. The calculated pulmonary artery systolic pressure was normal. Abnormal relaxation pattern was noted across the mitral valve leaflets as well as the septal and lateral mitral valve annulus consistent with delayed relaxation. IMPRESSION: 1. Normal global left ventricular systolic function with probably mild concentric left ventricular hypertrophy. There are features of left ventricular diastolic dysfunction, grade 1. 2. Aortic valve sclerosis with trace aortic regurgitation and moderate aortic stenosis. The peak gradient across the aortic valve was 43.96 mmHg with a mean gradient of 27 mmHg, and an aortic valve area of 0.81 cm2. 3. Mitral annulus calcification with trace mitral regurgitation and probably mildly enlarged left atrium. 4. Mild tricuspid regurgitation with mild pulmonary hypertension.
[2016-07-09 07:16] LABS: MEAN CORPUSCULAR HEMOGLOBIN 26.6 pg (27.0-33.0); MEAN CORPUSCULAR HGB CONC 31.5 g/dl (32.0-36.5); MEAN CORPUSCULAR VOLUME 84.3 fl (80.0-96.0); WHITE BLOOD COUNT 5.2 K/mm3 (4.0-10.0)
[2016-07-09 07:24] LABS: ALBUMIN 3.3 GM/DL (3.2-5.2); ALBUMIN/GLOBULIN RATIO 0.97 (1.00-1.93); BILIRUBIN,TOTAL 0.6 MG/DL (0.2-1.0); CALCIUM LEVEL 8.6 MG/DL (8.8-10.2); CREATININE FOR GFR 1.27 MG/DL (0.70-1.30); GLOMERULAR FILTRATION RATE 57.2 (>35); POTASSIUM SERUM 3.9 MEQ/L (3.5-5.1); TOTAL PROTEIN 6.7 GM/DL (6.4-8.2)
[2016-07-09 08:00] VITALS: BP 137/64
[2016-07-09] MEDS: MESALAMINE 400 MG CAPSULE DELAYED RELEASE (DELZICOL) PO SCH (08:46)
[2016-07-09] MEDS: PANTOPRAZOLE 40MG INJ (PROTONIX) (C9113) IV SCH (08:46)
--- NOTE | 2016-07-09 17:34 | DS.PDOC ---
Discharge Summary General Date of Admission Jul 07, 2016 at 15:30 Date of Discharge Jul 09, 2016 at 12:15 Specialist/Consultants Involve Dr. Lombardi of general surgery. Discharge Summary PROCEDURES PERFORMED DURING STAY: None. COMPLICATIONS/CHIEF COMPLAINT: Chest Pain; Gi Bleed ADMISSION DIAGNOSES: 1. . Symptomatic anemia 2. . Ulcerative colitis 3. . Myelodysplastic syndrome DISCHARGE DIAGNOSES: 1. . Symptomatic anemia 2. . Ulcerative colitis 3. . Myelodysplastic syndrome HISTORY OF PRESENT ILLNESS: 86-year-old male with past medical history of myelodysplastic syndrome, and ulcerative colitis presented to the ER with a chief complaint of chest pain, generalized weakness with dyspnea on exertion. Patient described the pain as midsternal, nonradiating, and exertional. The patient denied any lower extremity swelling, orthopnea, syncopal episodes, or PND. Of note, the patient states that his last colonoscopy was 6 years ago, and there were no acute findings. The patient states that he follows with records management coordinator in the [facility]. In addition, the patient denied any melanotic, or bright red stools. In the ED, the patient's hemoglobin was noted to be 6.5. In addition the patient was also noted to be FOBT positive. The patient will was admitted to the hospitalist service for further evaluation and management of symptomatic anemia. During the course of the patient's stay in the hospital, surgery was consulted for possible colonoscopy in view of the patient's anemia. However, the patient did not require a colonoscopy here as he remained hemodynamically stable after he received 2 units of packed red blood cells. Dr. Lombardi of surgery did see the patient here, and recommended an outpatient follow-up for a colonoscopy with the patient's GI doctor in [place]. At this time, the patient remains hemodynamically stable following transfusion, and he notes that he feels well. In addition, I do think that the patient's underlying myelodysplastic syndrome may have attributed to the patient's anemia, rather than GI bleeding being the main source. I have asked the patient also follow-up with his medical oncologist Dr. Arguello as well. DISCHARGE MEDICATIONS: Please see below. ALLERGIES: Please see below. PHYSICAL EXAMINATION ON DISCHARGE: VITAL SIGNS: Please see below. General Exam: Positive: Alert, Cooperative, No Acute Distress ENT Exam: Positive: Atraumatic, Mucous membr. moist/pink Neck Exam: Negative: JVD Chest Exam: Positive: Clear to auscultation, Normal air movement Heart Exam: Positive: Normal S1, Normal S2, Rate Normal Abdomen Exam: Positive: Tenderness, Negative: Soft Extremity Exam: Negative: Swelling, Tenderness LABORATORY DATA: Please see below. IMAGING: Clinical: Acute chest pain and shortness of breath . Technique: Axial contrast enhanced images from the thoracic inlet to the upper abdomen using 100 ml Isovue 370 intravenous contrast material with coronal and sagittal re-formations. Findings: Satisfactory enhancement of the pulmonary vasculature is achieved and no filling defects are identified to suggest pulmonary embolus. Thoracic aorta is normal caliber without aneurysm or dissection. Heart and pericardium are normal. Bilateral lung benites are well aerated and clear without acute pulmonary parenchymal consolidation or atelectasis. No nodule or mass lesion. No pleural effusion/reaction. No pneumothorax. No adenopathy. Impression: No evidence for pulmonary embolus. No acute pleuroparenchymal or mediastinal process. VTE Prophylaxis ordered?: Yes DISCHARGE CONDITION: Stable. DISPOSITION: . Discharged home ACTIVITY: . As tolerated DIET: . Regular diet ITEMS TO FOLLOWUP ON OUTPATIENT: 1. . Follow-up with primary care physician within one to 2 weeks 2. . Follow-up with gastroenterology within 2-4 weeks 3. . Follow-up with medical oncology within 2-4 weeks TIME SPENT ON DISCHARGE: Greater than 30 minutes. Vital Signs/I&Os Vital Signs Date Time Temp Pulse Resp B/P Pulse Ox O2 Delivery O2 Flow Rate FiO2 07/09/16 08:00 97.4 90 16 137/64 96 Room Air I&O- Last 24 Hours up to 6 AM 07/09/16 05:59 Intake Total 1580 ml Output Total 1425 ml Balance 155 ml Laboratory Data Labs 24H Laboratory Tests 2 07/09/16 06:22: Blood Urea Nitrogen 25H, Creatinine 1.27, Sodium Level 141, Potassium Level 3.9 , Chloride Level 106, Carbon Dioxide Level 27, Calcium Level 8.6L, Aspartate Amino Transf (AST/SGOT) 19, Alanine Aminotransferase (ALT/SGPT) 19, Alkaline Phosphatase 70, Total Bilirubin 0.6, Total Protein 6.7, Albumin 3.3, Albumin/ Globulin Ratio 0.97L, Anion Gap 8, Glomerular Filtration Rate 57.2 CBC/BMP Laboratory Tests 07/09/16 06:22 Calcium Level 8.6 L, Aspartate Amino Transf (AST/SGOT) 19, Alanine Aminotransferase (ALT/SGPT) 19, Alkaline Phosphatase 70, Total Bilirubin 0.6, Total Protein 6.7, Albumin 3.3, Red Blood Count 3.26 L, Mean Corpuscular Volume 84.3, Mean Corpuscular Hemoglobin 26.6 L, Mean Corpuscular Hemoglobin Concent 31.5 L, Red Cell Distribution Width 17.0 H Medications Scheduled Mesalamine (Lialda) 1.2 Gm Tab 1.2 GM PO BID Multivitamins *[facility] STOCKED* (Thera M Plus *[facility] STOCKED*) 1 Tab Tab 1 TAB PO DAILY Allergies Coded Allergies: No Known Allergies (Unverified , 07/07/16) QUINTON JEONG MD Jul 09, 2016 17:34
--- NOTE | 2016-07-10 18:13 | EDDOCDS ---
Physician Documentation [facility] Name: Saroj Jain Age: 86 yrs Sex: Male : 1930 Arrival Date: 07/07/2016 Time: 12:12 Bed Admit Hold Private MD: Kvng Thomas A. Disposition: 07/07/16 14:27 Hospitalization ordered by Chris Beckford for Inpatient Admission. Preliminary diagnosis are Gastrointestinal hemorrhage, unspecified, Anemia, unspecified, Chest pain, unspecified. - Bed requested for Admit. - Status is Inpatient Admission. ms2 - Condition is Stable. - Problem is new. - Symptoms are unchanged. Historical: - Allergies: no known allergies; - Home Meds: 1. Lialda 1.2 gram oral TbEC twice a day (Last dose: 07/07/2016 07:00) - PMHx: IBS; APACHE; - PSHx: Colonoscopy; - Social history: Smoking status: Patient uses tobacco products, current some day smoker. No barriers to communication noted, The patient speaks fluent Yi, Speaks appropriately for age. - : The pt / caregiver states he / she is not on anticoagulants. Home medication list is obtained from the patient. - Exposure Risk Screening:: None identified. Vital Signs: 07/07 12:14 BP 158 / 78; Pulse 98; Resp 18; Temp 96.7(O); Pulse Ox 100% on R/A; Weight 65.32 kg / jrd 144.01 lbs (R); Height 5 ft. 10 in. (177.80 cm); Pain 2/10; 12:39 BP 133 / 62 (auto/); hs1 12:40 Pulse 84 MON; Pulse Ox 100% ; hs1 12:54 BP 129 / 63 (auto/); hs1 12:54 Pulse 84 MON; Pulse Ox 99% ; hs1 13:09 BP 139 / 65 (auto/); hs1 13:09 Pulse 80 MON; Pulse Ox 98% ; hs1 13:24 Pulse 88 MON; Pulse Ox 100% ; hs1 13:24 BP 132 / 59 (auto/); hs1 13:39 BP 130 / 58 (auto/); hs1 13:40 Pulse 82 MON; Pulse Ox 98% ; hs1 13:53 Pulse 86 MON; Pulse Ox 98% ; hs1 13:54 BP 123 / 59 (auto/); hs1 14:09 BP 141 / 62 (auto/); hs1 14:10 Pulse 86 MON; Pulse Ox 100% ; hs1 14:24 BP 139 / 65 (auto/); hs1 14:25 Pulse 86 MON; Pulse Ox 99% ; hs1 14:39 BP 136 / 65 (auto/); hs1 14:40 Pulse 84 MON; Pulse Ox 99% ; hs1 14:54 BP 143 / 64 (auto/); hs1 14:55 Pulse 84 MON; Pulse Ox 99% ; hs1 15:09 BP 131 / 77 (auto/); hs1 15:09 Pulse 86 MON; Pulse Ox 99% ; hs1 15:24 BP 138 / 65 (auto/); hs1 15:25 Pulse 88 MON; Pulse Ox 99% ; hs1 15:39 BP 141 / 69 (auto/); hs1 15:39 Pulse 90 MON; Resp 18; Temp 96.9(O); Pulse Ox 99% ; Pain 0/10; hs1 12:14 Body Mass Index 20.66 (65.32 kg, 177.80 cm) jrd MDM: 12:16 Blending Supervisor/Pulse Ox/q 30 min VS ordered. br1 12:16 IV Saline Lock ordered. br1 12:16 Rhythm Strip to chart ordered. br1 12:16 Undress patient appropriately for examination ordered. br1 12:17 Basic Metabolic Profile Ordered. EDMS 12:17 CBC with Diff Ordered. EDMS 12:17 Cardiac Injury Profile Ordered. EDMS 12:17 Troponin Ordered. EDMS 12:17 ECG WITH READING ER PHYS+CARDIAG ordered. EDMS 12:30 Chest, 1 View Ordered. EDMS 12:37 Aspirin 324 mg PO once ordered. br1 12:50 Financial registration complete. lg 13:13 DIFFERENTIAL NO CHARGE Ordered. EDMS 13:13 PLATELET ESTIMATE Ordered. EDMS 13:14 Basic Metabolic Profile Reviewed. br1 13:14 CBC with Diff Reviewed. br1 13:14 Cardiac Injury Profile Reviewed. br1 13:14 Troponin Reviewed. br1 13:16 CT Chest Angio R/O PE Ordered. EDMS 13:17 Type and Cross, Packed Cells Ordered. EDMS 13:17 TYPE & SCREEN Ordered. EDMS 13:24 Transfuse PRBC's 2 units, ensure PRBCs ordered in lab ordered. br1 13:25 PT/INR Ordered. EDMS 13:25 PTT Ordered. EDMS 13:27 BED REQUEST+ADM ordered. EDMS 13:34 [facility] [place] Payment Agreement was scanned into [employer] and attached to record. lg 13:42 CBC with Diff Reviewed. br1 13:42 PLATELET ESTIMATE Reviewed. br1 14:36 LIVER PROFILE Ordered. EDMS 15:07 Basic Metabolic Profile Reviewed. br1 15:07 LIVER PROFILE Reviewed. br1 15:07 Cardiac Injury Profile Reviewed. br1 15:07 Troponin Reviewed. br1 15:07 TYPE & SCREEN Reviewed. br1 15:07 PT/INR Reviewed. br1 15:07 PTT Reviewed. br1 15:07 Chest, 1 View Reviewed. br1 15:07 CT Chest Angio R/O PE Reviewed. br1 15:36 PHYSICAL THERAPY EVAL & TREAT ordered. EDMS 15:36 Admission / Observation Status ordered. EDMS 15:36 ECHOCARD,DOPPLER/COLOR FLOW ordered. EDMS 15:36 REGULAR DIET ordered. EDMS 15:37 COMPLETE BLOOD COUNT Ordered. EDMS 19:32 COMPLETE BLOOD COUNT Ordered. EDMS 19:32 COMPLETE BLOOD COUNT Ordered. EDMS 19:33 COMPLETE BLOOD COUNT Ordered. EDMS 19:33 COMPLETE COMPHRENSIVE METABOLI Ordered. EDMS 02 08:47 REGULAR DIET ordered. EDMS 13:55 PROTHROMBIN TIME PROFILE\E\INR Ordered. EDMS 07/09 14:44 T-Sheet-- Draft Copy was scanned into [employer] and attached to record. gb 14:44 ECG/EKG was scanned into [employer] and attached to record. gb Administered Medications: 07/07 12:46 Drug: Aspirin 324 mg [aspirin 81 mg chewable tablet (4 tabs)] Route: PO; hs1 Signatures: Dispatcher [employer] EDMS Farrukh Ceja,RN RN ms2 Della Orr, Reg Reg gb Dorian Dow, Reg Reg lg Thanh Acuña MD MD br1 Francis King RN RN ml6 Maryann Salinas, MASTER POLICE DETECTIVE MASTER POLICE DETECTIVE tmm1 Tony Wu, MASTER POLICE DETECTIVE MASTER POLICE DETECTIVE d Farrukh Baumann RN RN [facility] Karin Zamora2 Sherri Quinonez RN hs1 The chart was reviewed and I authenticate all verbal orders and agree with the evaluation and treatment provided.Corrections: (The following items were deleted from the chart) 14:36 13:25 LIVER PROFILE+LAB ordered. EDMS EDMS 16:27 15:37 PROTHROMBIN TIME PROFILE\E\INR ordered. EDMS EDMS 07/08 06:35 07/07 19:32 COMPLETE BLOOD COUNT ordered. EDMS EDMS 07/08 08:47 07/07 15:37 NPO DIET ordered. EDMS EDMS 07/08 13:57 07/07 19:32 PROTHROMBIN TIME PROFILE\E\INR ordered. EDMS EDMS Attachments: 13:34 [facility] Payment Agreement 07/09 14:44 T-Sheet-- Draft Copy gb 14:44 ECG/EKG gb Chart Complete MTDD
--- NOTE | 2016-07-10 18:13 | EDDOCDS ---
Physician Documentation [facility] Name: Saroj Jain Age: 86 yrs Sex: Male : 1930 Arrival Date: 07/07/2016 Time: 12:12 Bed Admit Hold Private MD: Kvng Thomas A. Disposition: 07/07/16 14:27 Hospitalization ordered by Chris Beckford for Inpatient Admission. Preliminary diagnosis are Gastrointestinal hemorrhage, unspecified, Anemia, unspecified, Chest pain, unspecified. - Bed requested for Admit. - Status is Inpatient Admission. ms2 - Condition is Stable. - Problem is new. - Symptoms are unchanged. Historical: - Allergies: no known allergies; - Home Meds: 1. Lialda 1.2 gram oral TbEC twice a day (Last dose: 07/07/2016 07:00) - PMHx: IBS; NINILCHIK; - PSHx: Colonoscopy; - Social history: Smoking status: Patient uses tobacco products, current some day smoker. No barriers to communication noted, The patient speaks fluent Yakut, Speaks appropriately for age. - : The pt / caregiver states he / she is not on anticoagulants. Home medication list is obtained from the patient. - Exposure Risk Screening:: None identified. Vital Signs: 07/07 12:14 BP 158 / 78; Pulse 98; Resp 18; Temp 96.7(O); Pulse Ox 100% on R/A; Weight 65.32 kg / jrd 144.01 lbs (R); Height 5 ft. 10 in. (177.80 cm); Pain 2/10; 12:39 BP 133 / 62 (auto/); hs1 12:40 Pulse 84 MON; Pulse Ox 100% ; hs1 12:54 BP 129 / 63 (auto/); hs1 12:54 Pulse 84 MON; Pulse Ox 99% ; hs1 13:09 BP 139 / 65 (auto/); hs1 13:09 Pulse 80 MON; Pulse Ox 98% ; hs1 13:24 Pulse 88 MON; Pulse Ox 100% ; hs1 13:24 BP 132 / 59 (auto/); hs1 13:39 BP 130 / 58 (auto/); hs1 13:40 Pulse 82 MON; Pulse Ox 98% ; hs1 13:53 Pulse 86 MON; Pulse Ox 98% ; hs1 13:54 BP 123 / 59 (auto/); hs1 14:09 BP 141 / 62 (auto/); hs1 14:10 Pulse 86 MON; Pulse Ox 100% ; hs1 14:24 BP 139 / 65 (auto/); hs1 14:25 Pulse 86 MON; Pulse Ox 99% ; hs1 14:39 BP 136 / 65 (auto/); hs1 14:40 Pulse 84 MON; Pulse Ox 99% ; hs1 14:54 BP 143 / 64 (auto/); hs1 14:55 Pulse 84 MON; Pulse Ox 99% ; hs1 15:09 BP 131 / 77 (auto/); hs1 15:09 Pulse 86 MON; Pulse Ox 99% ; hs1 15:24 BP 138 / 65 (auto/); hs1 15:25 Pulse 88 MON; Pulse Ox 99% ; hs1 15:39 BP 141 / 69 (auto/); hs1 15:39 Pulse 90 MON; Resp 18; Temp 96.9(O); Pulse Ox 99% ; Pain 0/10; hs1 12:14 Body Mass Index 20.66 (65.32 kg, 177.80 cm) jrd MDM: 12:16 Vehicle Care Specialist/Pulse Ox/q 30 min VS ordered. br1 12:16 IV Saline Lock ordered. br1 12:16 Rhythm Strip to chart ordered. br1 12:16 Undress patient appropriately for examination ordered. br1 12:17 Basic Metabolic Profile Ordered. EDMS 12:17 CBC with Diff Ordered. EDMS 12:17 Cardiac Injury Profile Ordered. EDMS 12:17 Troponin Ordered. EDMS 12:17 ECG WITH READING ER PHYS+CARDIAG ordered. EDMS 12:30 Chest, 1 View Ordered. EDMS 12:37 Aspirin 324 mg PO once ordered. br1 12:50 Financial registration complete. lg 13:13 DIFFERENTIAL NO CHARGE Ordered. EDMS 13:13 PLATELET ESTIMATE Ordered. EDMS 13:14 Basic Metabolic Profile Reviewed. br1 13:14 CBC with Diff Reviewed. br1 13:14 Cardiac Injury Profile Reviewed. br1 13:14 Troponin Reviewed. br1 13:16 CT Chest Angio R/O PE Ordered. EDMS 13:17 Type and Cross, Packed Cells Ordered. EDMS 13:17 TYPE & SCREEN Ordered. EDMS 13:24 Transfuse PRBC's 2 units, ensure PRBCs ordered in lab ordered. br1 13:25 PT/INR Ordered. EDMS 13:25 PTT Ordered. EDMS 13:27 BED REQUEST+ADM ordered. EDMS 13:34 [facility] Agreement was scanned into [employer] and attached to record. lg 13:42 CBC with Diff Reviewed. br1 13:42 PLATELET ESTIMATE Reviewed. br1 14:36 LIVER PROFILE Ordered. EDMS 15:07 Basic Metabolic Profile Reviewed. br1 15:07 LIVER PROFILE Reviewed. br1 15:07 Cardiac Injury Profile Reviewed. br1 15:07 Troponin Reviewed. br1 15:07 TYPE & SCREEN Reviewed. br1 15:07 PT/INR Reviewed. br1 15:07 PTT Reviewed. br1 15:07 Chest, 1 View Reviewed. br1 15:07 CT Chest Angio R/O PE Reviewed. br1 15:36 PHYSICAL THERAPY EVAL & TREAT ordered. EDMS 15:36 Admission / Observation Status ordered. EDMS 15:36 ECHOCARD,DOPPLER/COLOR FLOW ordered. EDMS 15:36 REGULAR DIET ordered. EDMS 15:37 COMPLETE BLOOD COUNT Ordered. EDMS 19:32 COMPLETE BLOOD COUNT Ordered. EDMS 19:32 COMPLETE BLOOD COUNT Ordered. EDMS 19:33 COMPLETE BLOOD COUNT Ordered. EDMS 19:33 COMPLETE COMPHRENSIVE METABOLI Ordered. EDMS 02 08:47 REGULAR DIET ordered. EDMS 13:55 PROTHROMBIN TIME PROFILE\E\INR Ordered. EDMS 07/09 14:44 T-Sheet-- Draft Copy was scanned into [employer] and attached to record. gb 14:44 ECG/EKG was scanned into [employer] and attached to record. gb Administered Medications: 07/07 12:46 Drug: Aspirin 324 mg [aspirin 81 mg chewable tablet (4 tabs)] Route: PO; hs1 Signatures: Dispatcher [employer] EDMS Farrukh Ceja,RN RN ms2 Della Orr, Reg Reg gb Dorian Dow, Reg Reg lg Thanh Acuña MD MD br1 Francis King RN RN ml6 Maryann Salinas, OIL AND GAS PRINCIPAL OIL AND GAS PRINCIPAL tmm1 Tony Wu, OIL AND GAS PRINCIPAL OIL AND GAS PRINCIPAL d Farrukh Baumann RN RN [facility] Karin Zamora2 Sherri Quinonez RN hs1 The chart was reviewed and I authenticate all verbal orders and agree with the evaluation and treatment provided.Corrections: (The following items were deleted from the chart) 14:36 13:25 LIVER PROFILE+LAB ordered. EDMS EDMS 16:27 15:37 PROTHROMBIN TIME PROFILE\E\INR ordered. EDMS EDMS 07/08 06:35 07/07 19:32 COMPLETE BLOOD COUNT ordered. EDMS EDMS 07/08 08:47 07/07 15:37 NPO DIET ordered. EDMS EDMS 07/08 13:57 07/07 19:32 PROTHROMBIN TIME PROFILE\E\INR ordered. EDMS EDMS Attachments: 13:34 [facility] [place] Agreement 07/09 14:44 T-Sheet-- Draft Copy gb 14:44 ECG/EKG gb Chart Complete MTDD
--- NOTE | 2016-07-10 18:13 | EDDOCDS ---
Nurse's Notes [facility] Name: Chloe Torres Age: 86 yrs Sex: Male : 1930 Arrival Date: 07/07/2016 Time: 12:12 Bed Admit Hold Private MD: Kvng Thomas A. 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 Presenting complaint:. Aspirin was not taken prior to arrival. Adult Sepsis Screening: The patient does not have new or worsening altered mentation. Patient's respiratory rate is less than 22. Systolic blood pressure is greater than 100. Patient has a qSOFA score of 0- Negative Sepsis Screen. Suicide/Homicide risk assessment- the patient denies having any suicidal and/or homicidal ideations and does not present with any other emotional, behavioral or mental health complaints. Status: Patient is not a track service person or dependent. Transition of care: patient was not received from another setting of care. 12:14 Acuity: NANCY Level 2 ml6 12:14 Method Of Arrival: Walkin/Carried/Asstd ml6 Triage Assessment: 12:25 General: Appears in no apparent distress, comfortable. Pain: Location: chest Pain ml6 currently is 5 out of 10 on a pain scale. Pain does not radiate. Quality of pain is described as aching. Neurological: No deficits noted. Cardiovascular: Capillary refill < 3 seconds is brisk in bilateral fingers toes Heart tones S1 S2 present Edema is absent. Pulses are all present. Chest pain is described as mild, quality is pressure, is located in anterior chest wall radiates Does not radiate. episodes are continuous began 2 hours prior to arrival. Respiratory: Airway is patent Respiratory effort is even, unlabored, Respiratory pattern is regular, symmetrical, Breath sounds are clear bilaterally. Historical: - Allergies: no known allergies; - Home Meds: 1. Lialda 1.2 gram oral TbEC twice a day (Last dose: 07/07/2016 07:00) - PMHx: IBS; MI'KMAQ; - PSHx: Colonoscopy; - Social history: Smoking status: Patient uses tobacco products, current some day smoker. No barriers to communication noted, The patient speaks fluent Iraqi, Speaks appropriately for age. - : The pt / caregiver states he / she is not on anticoagulants. Home medication list is obtained from the patient. - Exposure Risk Screening:: None identified. Screenin:48 Screening information is obtained from the patient. Fall risk: No risks identified. hs1 Assistance ADL's: requires no assistance with activities of daily living. Abuse/DV Screen: The patient / caregiver reports he/she is: not in a situation that causes fear, pain or injury. Nutritional screening: No deficits noted. Advance Directives: There is no active DNR order. home support is adequate. Assessment: 12:46 General: Appears in no apparent distress, comfortable, Behavior is appropriate for age, hs1 cooperative. Neurological: Level of Consciousness is awake, alert, obeys commands, Oriented to person, place, time, Senior Java Web Developer are equal bilaterally Moves all extremities. Gait is steady, Reports feeling tired all the time. "Blah" feeling. Cardiovascular: Rhythm is sinus rhythm Chest pain is denied. Respiratory: Airway is patent Respiratory effort is even, unlabored, Respiratory pattern is regular, symmetrical. 13:50 General: Appears patient transported to CT at this time. Tolerated test with no issues. hs1 Patient aware of waiting for radiology results and is also aware of admission at this time. Patient has no other questions or needs. . 14:52 General: Appears in no apparent distress, comfortable, Behavior is appropriate for age, hs1 cooperative, pleasant. Pain: Denies pain. Neurological: No deficits noted. Cardiovascular: Rhythm is sinus rhythm No ectopy. Respiratory: No deficits noted. Airway is patent Respiratory effort is even, unlabored, Respiratory pattern is regular, symmetrical. Derm: Skin is pink, warm & dry. normal. 15:53 General: Appears in no apparent distress, comfortable, Behavior is appropriate for age, hs1 cooperative. Pain: Denies pain. Cardiovascular: Rhythm is sinus rhythm No ectopy. Respiratory: Airway is patent Respiratory effort is even, unlabored, Respiratory pattern is regular, symmetrical. Derm: Skin is pink, warm & dry. normal. Vital Signs: 12:14 BP 158 / 78; Pulse 98; Resp 18; Temp 96.7(O); Pulse Ox 100% on R/A; Weight 65.32 kg jrd (R); Height 5 ft. 10 in. (177.80 cm); Pain 2/10; 12:39 BP 133 / 62 (auto/); hs1 12:40 Pulse 84 MON; Pulse Ox 100% ; hs1 12:54 BP 129 / 63 (auto/); hs1 12:54 Pulse 84 MON; Pulse Ox 99% ; hs1 13:09 BP 139 / 65 (auto/); hs1 13:09 Pulse 80 MON; Pulse Ox 98% ; hs1 13:24 Pulse 88 MON; Pulse Ox 100% ; hs1 13:24 BP 132 / 59 (auto/); hs1 13:39 BP 130 / 58 (auto/); hs1 13:40 Pulse 82 MON; Pulse Ox 98% ; hs1 13:53 Pulse 86 MON; Pulse Ox 98% ; hs1 13:54 BP 123 / 59 (auto/); hs1 14:09 BP 141 / 62 (auto/); hs1 14:10 Pulse 86 MON; Pulse Ox 100% ; hs1 14:24 BP 139 / 65 (auto/); hs1 14:25 Pulse 86 MON; Pulse Ox 99% ; hs1 14:39 BP 136 / 65 (auto/); hs1 14:40 Pulse 84 MON; Pulse Ox 99% ; hs1 14:54 BP 143 / 64 (auto/); hs1 14:55 Pulse 84 MON; Pulse Ox 99% ; hs1 15:09 BP 131 / 77 (auto/); hs1 15:09 Pulse 86 MON; Pulse Ox 99% ; hs1 15:24 BP 138 / 65 (auto/); hs1 15:25 Pulse 88 MON; Pulse Ox 99% ; hs1 15:39 BP 141 / 69 (auto/); hs1 15:39 Pulse 90 MON; Resp 18; Temp 96.9(O); Pulse Ox 99% ; Pain 0/10; hs1 12:14 Body Mass Index 20.66 (65.32 kg, 177.80 cm) jrd Vitals: 12:14 Log In Time: July 07, 2016 at 12:10. RN notified that patient meets Red Flag jrd criteria. ED Course: 12:13 Patient visited by Tony Wu PCA. jrd 12:13 Patient moved to Waiting jrd 12:14 Kvng Thomas is Private Physician. jrd 12:15 Devi, Sherri, RN is Primary Nurse. ml6 12:15 Glenn Acuña MD is Attending Physician. br1 12:15 Patient moved to 14 ml6 12:16 Patient visited by Tony uW PCA. jrd 12:23 Triage Initiated ml6 12:24 EKG done. (by ED staff). Reviewed by Glenn Acuña MD. jml1 12:26 Patient visited by Jose Armando Prado. jml1 12:28 Patient visited by Glenn Acuña MD. br1 12:38 Basic Metabolic Profile Sent. mb9 12:38 CBC with Diff Sent. mb9 12:38 Cardiac Injury Profile Sent. mb9 12:38 Troponin Sent. mb9 12:38 Inserted saline lock: 18 gauge in left forearm and blood collected. The patient mb9 tolerated the procedure well. 13:26 Type and Cross, Packed Cells Sent. srm 13:26 TYPE & SCREEN Sent. srm 13:26 DIFFERENTIAL NO CHARGE Sent. srm 13:26 PTT Sent. srm 13:26 PT/INR Sent. srm 13:27 Patient visited by Glenn Acuña MD. br1 13:34 [facility] [place] was scanned into [employer] and attached to record. lg 13:48 The patient / caregiver is instructed regarding the plan of care and ED course. Cardiac hs1 monitor on. Pulse ox on. NIBP on. 13:51 Chest, 1 View Returned. EDMS 14:03 Patient visited by Sherri Quinonez RN. hs1 14:27 Chris Beckford is Hospitalizing Provider. br1 14:36 CT Chest Angio R/O PE Returned. EDMS 16:47 Patient moved to 20 kcs 21:07 EKG-ADULT Returned. EDMS 21:09 Patient moved to Admit Hold sls1 07/08 00:46 Primary Nurse role handed off by Sherri Quinonez RN sls1 07/09 14:44 T-Sheet-- Draft Copy was scanned into [employer] and attached to record. gb 14:44 ECG/EKG was scanned into [employer] and attached to record. gb Administered Medications: 07/07 12:46 Drug: Aspirin 324 mg [aspirin 81 mg chewable tablet (4 tabs)] Route: PO; hs1 Order Results: Lab Order: Basic Metabolic Profile; SPEC'M 07/07/16 12:35 Test: GLUCOSE, FASTING; Value: 82; Range: 83-110; Abnormal: Below low normal; Units: MG/DL; Status: F Test: BLOOD UREA NITROGEN; Value: 25; Range: 7-18; Abnormal: Above high normal; Units: MG/DL; Status: F Test: CREATININE FOR GFR; Value: 1.30; Range: 0.70-1.30; Units: MG/DL; Status: F Test: GLOMERULAR FILTRATION RATE; Value: 55.7; Range: >35; Status: F Test: SODIUM LEVEL; Value: 141; Range: 136-145; Units: MEQ/L; Status: F Test: POTASSIUM SERUM; Value: 4.1; Range: 3.5-5.1; Units: MEQ/L; Status: F Test: CHLORIDE LEVEL; Value: 106; Range: 98-107; Units: MEQ/L; Status: F Test: CARBON DIOXIDE LEVEL; Value: 26; Range: 21-32; Units: MEQ/L; Status: F Test: ANION GAP; Value: 9; Range: 8-16; Units: MEQ/L; Status: F Test: CALCIUM LEVEL; Value: 8.7; Range: 8.8-10.2; Abnormal: Below low normal; Units: MG/DL; Status: F Test Note: ; Units are mL/min/1.73 m2 Chronic Kidney Disease Staging per NKF: Stage I & II GFR >=60 Normal to Mildly Decreased Stage III GFR 30-59 Moderately Decreased Stage IV GFR 15-29 Severely Decreased Stage V GFR <15 Very Little GFR Left ESRD GFR <15 on MANAGER MARKET DEVELOPMENT Test: AST/SGOT; Range: 15-37; Units: U/L; Status: I Test: ALT/SGPT; Range: 12-78; Units: U/L; Status: I Test: ALKALINE PHOSPHATASE; Range: 45-117; Units: U/L; Status: I Test: BILIRUBIN,TOTAL; Range: 0.2-1.0; Units: MG/DL; Status: I Test: BILIRUBIN,DIRECT; Range: 0.0-0.2; Units: MG/DL; Status: I Test: TOTAL PROTEIN; Range: 6.4-8.2; Units: GM/DL; Status: I Test: ALBUMIN; Range: 3.2-5.2; Units: GM/DL; Status: I Test: ALBUMIN/GLOBULIN RATIO; Range: 1.00-1.93; Status: I Lab Order: CBC with Diff; SPEC'M 07/07/16 12:35 Test: WHITE BLOOD COUNT; Value: 4.6; Range: 4.0-10.0; Units: K/mm3; Status: F Test: RED BLOOD COUNT; Value: 2.62; Range: 4.30-6.10; Abnormal: Below low normal; Units: M/mm3; Status: F Test: HEMOGLOBIN; Value: 6.5; Range: 14.0-18.0; Abnormal: Critical Low; Units: g/dl; Status: F Test: HEMATOCRIT; Value: 21.9; Range: 42.0-52.0; Abnormal: Below low normal; Units: %; Status: F Test: MEAN CORPUSCULAR VOLUME; Value: 83.6; Range: 80.0-96.0; Units: fl; Status: F Test: MEAN CORPUSCULAR HEMOGLOBIN; Value: 24.9; Range: 27.0-33.0; Abnormal: Below low normal; Units: pg; Status: F Test: MEAN CORPUSCULAR HGB CONC; Value: 29.8; Range: 32.0-36.5; Abnormal: Below low normal; Units: g/dl; Status: F Test: RED CELL DISTRIBUTION WIDTH; Value: 17.2; Range: 11.5-14.5; Abnormal: Above high normal; Units: %; Status: F Test: PLATELET COUNT, AUTOMATED; Value: 139; Range: 150-450; Abnormal: Below low normal; Units: k/mm3; Status: F Test: NEUTROPHILS; Value: 41; Range: 35-75; Units: %; Status: F Test: BANDS; Value: 2; Range: < 11; Units: %; Status: F Test: LYMPHOCYTES; Value: 40; Range: 16-52; Units: %; Status: F Test: MONOCYTES; Value: 3; Range: 0-8; Units: %; Status: F Test: EOSINOPHILS; Value: 2; Range: 0-5; Units: %; Status: F Test: METAMYELOCYTES; Value: 3; Range: 0-0; Abnormal: Above high normal; Units: %; Status: F Test: MYELOCYTES; Value: 5; Range: 0-0; Abnormal: Above high normal; Units: %; Status: F Test: PROMYELOCYTES; Value: 1; Range: 0-0; Abnormal: Above high normal; Units: %; Status: F Test: ATYPICAL LYMPH; Value: 3; Range: 0-5; Units: %; Status: F Test: HYPOCHROMASIA; Value: 2+; Status: F Test: POIKILOCYTOSIS; Value: 1+; Status: F Test: ANISOCYTOSIS; Value: 2+; Status: F Test: MICROCYTOSIS; Value: 2+; Status: F Lab Order: Cardiac Injury Profile; [facility] 07/07/16 12:35 Test: CPK CREATINE PHOSPHOKINASE; Value: 61; Range: 39-308; Units: U/L; Status: F Test: CK-MB VALUE MASS; Value: 1.3; Range: 0.0-3.6; Units: NG/ML; Status: F Test: MB/CK RELATIVE INDEX; Value: 2.13; Range: < OR =4; Status: F Test Note: ; DIAGNOSIS CRITERIA MMB ng/ml Relative Index (RI) NON-AMI < or = 5 N/A [place] > 5 < or = 4 AMI > 5 > 4 Lab Order: Troponin; [facility] 07/07/16 12:35 Test: TROPONIN I; Value: < 0.02; Range: < 0.10; Units: NG/ML; Status: F Test Note: ; Troponin I Reference Interval for [employer] LOCI: 99th Percentile= 0.00-0.045 ng/ml Risk Stratification: <= 0.10 ng/ml Decreased Risk for Adverse Clinical Events. 0.10-1.50 ng/ml Increased Risk for Adverse Clinical Events. Evaluation of additional criterion and/or repeat testing in 2-6 hours is suggested to rule out myocardial damage. >= 1.50 ng/ml Indicative of Myocardial Injury. Lab Order: PLATELET ESTIMATE; [facility] 07/07/16 12:35 Test: PLATELET ESTIMATE; Value: DECREASED; Range: NORMAL; Status: F Lab Order: TYPE & SCREEN; [facility] 07/07/16 13:24 Test: BLOOD TYPE; Value: A POS; Status: F Test: AB SCREEN (INDIRECT KOBE)VIS; Value: NEGATIVE; Status: F Test: IMMEDIATE SPIN CROSSMATCH; Value: [id number] A POSITIVE Compatible? Y; Status: F Test: IMMEDIATE SPIN CROSSMATCH; Value: [id number] A POSITIVE Compatible? Y; Status: F Lab Order: PT/INR; [facility] 07/07/16 12:35 Test: PROTHROMBIN TIME; Value: 14.3; Range: 12.3-14.5; Units: SECONDS; Status: F Test: INR; Value: 1.10; Status: F Test Note: ; THERAPUTIC HUMAN INR VALUES INDICATIONS NORMAL RANGES PROPHYLAXIS/TREATMENT OF: VENOUS THROMBOSIS 2.0-3.0 PULMONARY EMBOLISM 2.0-3.0 PREVENTION OF SYSTEMIC EMBOLISM FROM: TISSUE HEART VALVES 2.0-3.0 ACUTE MYOCARDIAL INFARCTION 2.0-3.0 VALVULAR HEART DISEASE 2.0-3.0 ATRIAL FIBRILLATION 2.0-3.0 MECHANICAL VALVES(HIGH RISK) 2.5-3.5 RECURRENT MYOCARDIAL INFARCTION 2.5-3.5 Lab Order: PTT; [facility] 07/07/16 12:35 Test: PARTIAL THROMBOPLASTIN TIME; Value: 34.9; Range: 26.6-37.1; Units: SECONDS; Status: F Lab Order: LIVER PROFILE; [facility] 07/07/16 12:35 Test: AST/SGOT; Value: 26; Range: 15-37; Units: U/L; Status: F Test: ALT/SGPT; Value: 21; Range: 12-78; Units: U/L; Status: F Test: ALKALINE PHOSPHATASE; Value: 72; Range: 45-117; Units: U/L; Status: F Test: BILIRUBIN,TOTAL; Value: 0.4; Range: 0.2-1.0; Units: MG/DL; Status: F Test: BILIRUBIN,DIRECT; Value: 0.1; Range: 0.0-0.2; Units: MG/DL; Status: F Test: TOTAL PROTEIN; Value: 7.6; Range: 6.4-8.2; Units: GM/DL; Status: F Test: ALBUMIN; Value: 3.6; Range: 3.2-5.2; Units: GM/DL; Status: F Test: ALBUMIN/GLOBULIN RATIO; Value: 0.90; Range: 1.00-1.93; Abnormal: Below low normal; Status: F Lab Order: COMPLETE BLOOD COUNT; [facility] 07/07/16 21:16 Test: WHITE BLOOD COUNT; Value: 4.7; Range: 4.0-10.0; Units: K/mm3; Status: F Test: RED BLOOD COUNT; Value: 3.12; Range: 4.30-6.10; Abnormal: Below low normal; Units: M/mm3; Status: F Test: HEMOGLOBIN; Value: 8.4; Range: 14.0-18.0; Abnormal: Below low normal; Units: g/dl; Status: F Test: HEMATOCRIT; Value: 26.4; Range: 42.0-52.0; Abnormal: Below low normal; Units: %; Status: F Test: MEAN CORPUSCULAR VOLUME; Value: 84.6; Range: 80.0-96.0; Units: fl; Status: F Test: MEAN CORPUSCULAR HEMOGLOBIN; Value: 27.0; Range: 27.0-33.0; Units: pg; Status: F Test: MEAN CORPUSCULAR HGB CONC; Value: 32.0; Range: 32.0-36.5; Units: g/dl; Status: F Test: RED CELL DISTRIBUTION WIDTH; Value: 16.7; Range: 11.5-14.5; Abnormal: Above high normal; Units: %; Status: F Test: PLATELET COUNT, AUTOMATED; Value: 123; Range: 150-450; Abnormal: Below low normal; Units: k/mm3; Status: F Lab Order: COMPLETE BLOOD COUNT; [facility] 07/08/16 01:42 Test: WHITE BLOOD COUNT; Value: 4.4; Range: 4.0-10.0; Units: K/mm3; Status: F Test: RED BLOOD COUNT; Value: 3.06; Range: 4.30-6.10; Abnormal: Below low normal; Units: M/mm3; Status: F Test: HEMOGLOBIN; Value: 8.2; Range: 14.0-18.0; Abnormal: Below low normal; Units: g/dl; Status: F Test: HEMATOCRIT; Value: 25.6; Range: 42.0-52.0; Abnormal: Below low normal; Units: %; Status: F Test: MEAN CORPUSCULAR VOLUME; Value: 83.8; Range: 80.0-96.0; Units: fl; Status: F Test: MEAN CORPUSCULAR HEMOGLOBIN; Value: 26.8; Range: 27.0-33.0; Abnormal: Below low normal; Units: pg; Status: F Test: MEAN CORPUSCULAR HGB CONC; Value: 32.0; Range: 32.0-36.5; Units: g/dl; Status: F Test: RED CELL DISTRIBUTION WIDTH; Value: 16.8; Range: 11.5-14.5; Abnormal: Above high normal; Units: %; Status: F Test: PLATELET COUNT, AUTOMATED; Value: 115; Range: 150-450; Abnormal: Below low normal; Units: k/mm3; Status: F Lab Order: COMPLETE BLOOD COUNT; [facility] 07/08/16 15:56 Test: WHITE BLOOD COUNT; Value: 3.8; Range: 4.0-10.0; Abnormal: Below low normal; Units: K/mm3; Status: F Test: RED BLOOD COUNT; Value: 3.09; Range: 4.30-6.10; Abnormal: Below low normal; Units: M/mm3; Status: F Test: HEMOGLOBIN; Value: 8.2; Range: 14.0-18.0; Abnormal: Below low normal; Units: g/dl; Status: F Test: HEMATOCRIT; Value: 26.1; Range: 42.0-52.0; Abnormal: Below low normal; Units: %; Status: F Test: MEAN CORPUSCULAR VOLUME; Value: 84.5; Range: 80.0-96.0; Units: fl; Status: F Test: MEAN CORPUSCULAR HEMOGLOBIN; Value: 26.6; Range: 27.0-33.0; Abnormal: Below low normal; Units: pg; Status: F Test: MEAN CORPUSCULAR HGB CONC; Value: 31.5; Range: 32.0-36.5; Abnormal: Below low normal; Units: g/dl; Status: F Test: RED CELL DISTRIBUTION WIDTH; Value: 16.9; Range: 11.5-14.5; Abnormal: Above high normal; Units: %; Status: F Test: PLATELET COUNT, AUTOMATED; Value: 123; Range: 150-450; Abnormal: Below low normal; Units: k/mm3; Status: F Lab Order: COMPLETE BLOOD COUNT; [facility] 07/08/16 06:22 Test: WHITE BLOOD COUNT; Value: 4.1; Range: 4.0-10.0; Units: K/mm3; Status: F Test: RED BLOOD COUNT; Value: 3.17; Range: 4.30-6.10; Abnormal: Below low normal; Units: M/mm3; Status: F Test: HEMOGLOBIN; Value: 8.4; Range: 14.0-18.0; Abnormal: Below low normal; Units: g/dl; Status: F Test: HEMATOCRIT; Value: 26.5; Range: 42.0-52.0; Abnormal: Below low normal; Units: %; Status: F Test: MEAN CORPUSCULAR VOLUME; Value: 83.5; Range: 80.0-96.0; Units: fl; Status: F Test: MEAN CORPUSCULAR HEMOGLOBIN; Value: 26.6; Range: 27.0-33.0; Abnormal: Below low normal; Units: pg; Status: F Test: MEAN CORPUSCULAR HGB CONC; Value: 31.8; Range: 32.0-36.5; Abnormal: Below low normal; Units: g/dl; Status: F Test: RED CELL DISTRIBUTION WIDTH; Value: 16.8; Range: 11.5-14.5; Abnormal: Above high normal; Units: %; Status: F Test: PLATELET COUNT, AUTOMATED; Value: 117; Range: 150-450; Abnormal: Below low normal; Units: k/mm3; Status: F Lab Order: COMPLETE COMPHRENSIVE METABOLI; [facility] 07/08/16 06:22 Test: GLUCOSE, FASTING; Value: 82; Range: 83-110; Abnormal: Below low normal; Units: MG/DL; Status: F Test: BLOOD UREA NITROGEN; Value: 20; Range: 7-18; Abnormal: Above high normal; Units: MG/DL; Status: F Test: CREATININE FOR GFR; Value: 1.25; Range: 0.70-1.30; Units: MG/DL; Status: F Test: GLOMERULAR FILTRATION RATE; Value: 58.3; Range: >35; Status: F Test: SODIUM LEVEL; Value: 141; Range: 136-145; Units: MEQ/L; Status: F Test: POTASSIUM SERUM; Value: 4.2; Range: 3.5-5.1; Units: MEQ/L; Status: F Test: CHLORIDE LEVEL; Value: 108; Range: 98-107; Abnormal: Above high normal; Units: MEQ/L; Status: F Test: CARBON DIOXIDE LEVEL; Value: 26; Range: 21-32; Units: MEQ/L; Status: F Test: ANION GAP; Value: 7; Range: 8-16; Abnormal: Below low normal; Units: MEQ/L; Status: F Test: CALCIUM LEVEL; Value: 8.2; Range: 8.8-10.2; Abnormal: Below low normal; Units: MG/DL; Status: F Test: AST/SGOT; Value: 19; Range: 15-37; Units: U/L; Status: F Test: ALT/SGPT; Value: 19; Range: 12-78; Units: U/L; Status: F Test: ALKALINE PHOSPHATASE; Value: 66; Range: 45-117; Units: U/L; Status: F Test: BILIRUBIN,TOTAL; Value: 0.7; Range: 0.2-1.0; Abnormal: Delta; Units: MG/DL; Status: F Test: TOTAL PROTEIN; Value: 7.1; Range: 6.4-8.2; Units: GM/DL; Status: F Test: ALBUMIN; Value: 3.2; Range: 3.2-5.2; Units: GM/DL; Status: F Test: ALBUMIN/GLOBULIN RATIO; Value: 0.82; Range: 1.00-1.93; Abnormal: Below low normal; Status: F Test Note: ; Units are mL/min/1.73 m2 Chronic Kidney Disease Staging per NKF: Stage I & II GFR >=60 Normal to Mildly Decreased Stage III GFR 30-59 Moderately Decreased Stage IV GFR 15-29 Severely Decreased Stage V GFR <15 Very Little GFR Left ESRD GFR <15 on MANAGER MARKET DEVELOPMENT Lab Order: PROTHROMBIN TIME PROFILE\\E\\INR; SPEC'M 07/08/16 15:55 Test: PROTHROMBIN TIME; Value: 14.6; Range: 12.3-14.5; Abnormal: Above high normal; Units: SECONDS; Status: F Test: INR; Value: 1.13; Status: F Test Note: ; THERAPUTIC HUMAN INR VALUES INDICATIONS NORMAL RANGES PROPHYLAXIS/TREATMENT OF: VENOUS THROMBOSIS 2.0-3.0 PULMONARY EMBOLISM 2.0-3.0 PREVENTION OF SYSTEMIC EMBOLISM FROM: TISSUE HEART VALVES 2.0-3.0 ACUTE MYOCARDIAL INFARCTION 2.0-3.0 VALVULAR HEART DISEASE 2.0-3.0 ATRIAL FIBRILLATION 2.0-3.0 MECHANICAL VALVES(HIGH RISK) 2.5-3.5 RECURRENT MYOCARDIAL INFARCTION 2.5-3.5 Radiology Order: EKG-ADULT Test: EKG-ADULT REASON FOR EXAMINATION: Chest Pain; Stationary ECG Study; [facility] - ED; ; Test Date: 2016-07-07; Pat Name: CHLOE TORRES Department:; Room: -; Gender: M 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; : 1930 Requested By: GLENN Tobar; Order Number: [id number] Reading MD: Jennifer Colon; Measurements; Intervals [place]; Rate: 93 P: 59; MT: 228 QRS: 20; QRSD: 86 T: 40; QT: 349; QTc: 434; Interpretive Statements; 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 The lung benites are clear without acute consolidation,; effusion, or pneumothorax. Skeletal structures are intact.; ; Impression:; Normal portable chest x-ray; ; ; Signed by; Hector Edmond MD 07/07/2016 01:04 P; Radiology Order: CT Chest Angio R/O PE Test: CT Chest Angio R/O PE REASON FOR EXAMINATION: Shortness of Breath;Chest Pain; Clinical: Acute chest pain and shortness of breath .; ; Technique: Axial contrast enhanced images from the thoracic inlet to the upper; abdomen using 100 ml Isovue 370 intravenous contrast material with coronal and; sagittal re-formations.; ; Findings: Satisfactory enhancement of the pulmonary vasculature is achieved and; no filling defects are identified to suggest pulmonary embolus. Thoracic aorta; is normal caliber without aneurysm or dissection. Heart and pericardium are; normal. Bilateral lung benites are well aerated and clear without acute pulmonary; parenchymal consolidation or atelectasis. No nodule or mass lesion. No pleural; effusion/reaction. No pneumothorax. No adenopathy.; ; Impression:; No evidence for pulmonary embolus.; No acute pleuroparenchymal or mediastinal process.; ; ; Signed by; Hector Edmond MD 07/07/2016 02:05 P; Outcome: 14:05 CT Study completed. hs1 14:27 Decision to Hospitalize by Provider. br1 07/08 17:13 Patient left the ED. ms2 Signatures: Dispatcher [employer] EDMS Yoli Rodriguez, RN RN kcs Farrukh Ceja RN RN ms2 Yudi Hunter RN RN [facility] Dominga, Della, Reg Reg gb Dorian Dow, Reg Reg lg Glenn Acuña MD MD br1 Francis King RN RN ml6 Sherri Quinonez RN RN hs1 Jessica Enamorado RN RN sls1 Jose Armando Prado jml1 Tony Wu, [place] PAYING TELLER Will Elias,RN RN mb9 Corrections: (The following items were deleted from the chart) 07/07 14:36 13:26 LIVER PROFILE+LAB sent. [facility] EDWY Chart Complete MTDD
== END 2016-07-09 12:15 | disposition home or self-care (01) | DRG 812 ==
LOC: M ED 12:12 → M ED INP 15:30 → M ALC 07-08 16:49 → M ED INP 07-08 16:51 → M ALC 07-08 17:05
PROVIDERS: ADMIT Internal Medicine; ATTEND Internal Medicine
PROC: 30233N1 Transfusion of Nonautologous Red Blood Cells into Peripheral Vein, Percutaneous Approach (ICD-10-PCS; principal; 2016-07-07)
DX: D64.9 Anemia, unspecified (principal); K51.90 Ulcerative colitis, unspecified, without complications; D46.9 Myelodysplastic syndrome, unspecified; Z79.899 Other long term (current) drug therapy; N40.0 Benign prostatic hyperplasia without lower urinary tract symptoms

== ENCOUNTER → 2016-08-27 | Outpatient (REF) | payer MEDICARE, OTHER ==
[~2016-08-27] MED LIST: LIAL1.2T PO; VITMTA PO
[2016-08-27 13:49] LABS: REASON FOR REVIEW COMPREHENSIVE REVIEW
[2016-08-27 13:59] LABS: RETICULOCYTE % ADVIA2120 3.28 % (0.5-1.5)
[2016-08-27 14:00] LABS: RETIC HEMOGLOBIN CONTENT CHr 25.4 PG (24-36); RETICULOCYTE ABSOLUTE ADVIA212 93 x10(9)/L (17-77)
[2016-08-28 11:36] LABS: ERYTHROPOIETIN 173.3 mIU/mL (2.6-18.5)
== END ==
LOC: M LAB REF 10:58
PROVIDERS: ATTEND Internal Medicine Medical Oncology
DX: D61.818 Other pancytopenia (principal); D72.821 Monocytosis (symptomatic); D47.2 Monoclonal gammopathy

== ENCOUNTER 2016-09-03 10:20 | Observation (INO) | payer MEDICARE, OTHER ==
[~2016-09-03] VITALS: Ht 172.7 cm; Wt 67.0 kg
[2016-09-03 11:09] LABS: DIFF SLIDE NUMBER 212; MEAN CORPUSCULAR HEMOGLOBIN 24.4 pg (27.0-33.0); MEAN CORPUSCULAR HGB CONC 29.5 g/dl (32.0-36.5); MEAN CORPUSCULAR VOLUME 82.5 fl (80.0-96.0); PLATELET COUNT, AUTOMATED 155 k/mm3 (150-450); RED CELL DISTRIBUTION WIDTH 17.8 % (11.5-14.5); WHITE BLOOD COUNT 2.7 K/mm3 (4.0-10.0)
[2016-09-03 11:29] LABS: ALBUMIN 3.3 GM/DL (3.2-5.2); ALBUMIN/GLOBULIN RATIO 0.79 (1.00-1.93); ALKALINE PHOSPHATASE 69 U/L (45-117); ALT/SGPT 21 U/L (12-78); ANION GAP 6 MEQ/L (8-16); AST/SGOT 17 U/L (15-37); BILIRUBIN,DIRECT 0.1 MG/DL (0.0-0.2); BILIRUBIN,TOTAL 0.5 MG/DL (0.2-1.0); BLOOD UREA NITROGEN 22 MG/DL (7-18); CALCIUM LEVEL 8.2 MG/DL (8.8-10.2); CARBON DIOXIDE LEVEL 28 MEQ/L (21-32); CHLORIDE LEVEL 106 MEQ/L (98-107); CREATININE FOR GFR 1.29 MG/DL (0.70-1.30); GLOMERULAR FILTRATION RATE 56.2 (>35); GLUCOSE, FASTING 110 MG/DL (83-110); POTASSIUM SERUM 4.1 MEQ/L (3.5-5.1); SODIUM LEVEL 140 MEQ/L (136-145); TOTAL PROTEIN 7.5 GM/DL (6.4-8.2)
--- NOTE | 2016-09-03 11:47 | REP ---
Portable chest, single AP view, patient sitting: A comparison is 07/07/2016. The lung benites are clear. The cardiac size is normal. The lexi, mediastinum, and bony thorax are unremarkable. Impression: Negative portable chest. There is no interval change. Signed by Benji Austin MD 09/03/2016 11:38 A
[2016-09-03 12:04] LABS: ANISOCYTOSIS 1+; BASOPHILS 1 % (0-4); EOSINOPHILS 1 % (0-5); HYPOCHROMASIA 3+
[2016-09-03] MEDS ORDERED: ONDANSETRON 4MG/2ML VIAL (J2405) IV PRN (13:45)
[2016-09-03] MEDS ORDERED: ACETAMINOPHEN TAB 650MG DOSE (2X325MG) PO PRN (13:45)
--- NOTE | 2016-09-03 14:42 | HPE ---
DATE OF ADMISSION: 09/03/2016 PRIMARY CARE PROVIDER: Dr. Thomas ONCOLOGIST/STATION SUPERVISOR: Dr. Arguello VENEER PULLER: Dr. Najera CHIEF COMPLAINT: Dyspnea on exertion, shortness of breath, mild chest pressure. HISTORY OF PRESENT ILLNESS: The patient is an 86-year-old man with known myelodysplastic syndrome. He follows with Dr. Arguello of hematology/oncology. The patient was actually admitted in June of this year with the exact same presenting complaints with a hemoglobin of 6.5, mild chest pressure and dyspnea on exertion. He was admitted and had an echocardiogram completed at that time, which revealed some left ventricular hypertrophy with grade 1 diastolic dysfunction. He received 2 units of packed red blood cell with good response. The patient has a history of ulcerative colitis and there was concern for potential GI bleeding; however, he was seen by general surgery and given his positive response and stable post transfusion hemoglobin and hematocrit, it was felt that he was stable for followup with outpatient gastroenterology. The patient is scheduled to have a colonoscopy on 10/03/[address] Najera at this time. The patient denies any melena or back/tarry stools, preston blood per rectum, or any obvious bleeding. The patient was seen by Dr. Arguello today in his clinic who, given his symptoms and his low hemoglobin, referred the patient to the emergency room and suggested transfusion, as well as monitoring. SUBJECTIVE: The patient tells me that he already is feeling better with half of a unit of blood. He denies chest pain at the present time, shortness of breath, fevers, chills, lightheadedness, dizziness, nausea, vomiting. PAST MEDICAL HISTORY: 1. Ulcerative colitis. 2. Myelodysplastic syndrome. 3. Grade 1 diastolic dysfunction on echocardiogram. PAST SURGICAL HISTORY: Numerous colonoscopies, most recent one 5 years ago. No other surgeries other than removal of mild skin cancers. ALLERGIES: No known drug allergies. SOCIAL HISTORY: He denies tobacco. He admits to alcohol with one to two beers per evening. HOME MEDICATIONS: - mesalamine 1.2 grams twice a day - multivitamin one tablet daily FAMILY HISTORY: Noncontributory. REVIEW OF SYSTEMS: Negative other than history of present illness. OBJECTIVE: VITAL SIGNS: Temperature 96.9, pulse 75, respiratory rate 18, blood pressure 144/75, oxygen saturation 98% on room air. GENERAL: He is a pleasant, elderly, man sitting up in bed. He does not appear to be in any acute distress. He does not appear to have pallor. He is accompanied by his . HEENT: Cranial nerves II through XII are grossly intact. He has moist mucous membranes. No elevation in central venous pressure. CARDIOVASCULAR EXAM: S1, S2 regular. RESPIRATORY EXAM: Clear. ABDOMINAL EXAM: Benign. EXTREMITIES: No clubbing, cyanosis, or edema. LABORATORY STUDIES: WBC 2.7, hemoglobin 6.6, hematocrit 22.3, platelet count 105, monocytes 23. Chemistry panel: Sodium 140, potassium 4.1, chloride 106, bicarbonate 28, BUN 22, creatinine 1.2, BNP is slightly elevated at 120. One set of cardiac enzymes negative. Chest x-ray is fairly unremarkable. ASSESSMENT AND PLAN: This is an 86-year-old man admitted for symptomatic anemia. 1. Symptomatic anemia. Seems less likely to be a GI bleed and given his recurrence I feel that it is more likely related to his myelodysplastic syndrome. He would likely benefit from regularly scheduled transfusions through the infusion suite and I also think that he would benefit from proceeding with the scheduled output colonoscopy. I suspect most like his June admission he will have a positive response to 2 units. We will admit him to progressive care unit (PCU) and monitor him closely. His anemia is managed by Dr. Arguello, whom I spoke with and who did confirm this plan of care. 2. Ulcerative colitis. Continue mesalamine. He is scheduled for a colonoscopy next month. No obvious bleeding 3. Chest pressure. He may have had some mild angina associated with his symptomatic anemia. Cardiac enzymes are negative. We will admit him to telemetry and monitor repeat sets. If they are negative tomorrow and his hemoglobin and hematocrit has remained stable, the patient can likely be discharged with close followup with his primary care provider and Dr. Arguello and Dr. Najera. The patient may benefit from outpatient stress testing. However, he would likely be completely asymptomatic from a cardiac perspective when he is at target hemoglobin and hematocrit. 4. Diastolic congestive heart failure (CHF) on his last echo. He has a mildly elevated BNP. He clinically does not appear to be fluid overloaded whatsoever. I will continue to monitor closely. He has received 2 units packed red blood cell. If he does appear to be overloaded, he may benefit from a single dose of IV Lasix. 5. Deep vein thrombosis (DVT) prophylaxis. Sequential compression device (SCD) and TEDs. No pharmacological agents. 6. 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 Monitor him for withdrawal symptoms. We will not provide him with as needed medication at this point in time, as he likely will not remain in the hospital for greater than 40 to 72 hours is my suspicion. DISPOSITION: He is admitted to the PCU to Dr. Beckford's service on observation status, who will continue following the patient tomorrow at 7:00 a.m.
[2016-09-03 15:10] VITALS: BP 166/75
[2016-09-03 16:00] VITALS: BP 145/67
[2016-09-03 20:00] VITALS: BP 138/60
--- NOTE | 2016-09-03 21:04 | ECGEPIP ---
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
[2016-09-03] MEDS: MESALAMINE 400 MG CAPSULE DELAYED RELEASE (DELZICOL) PO SCH (21:06)
[2016-09-03] MEDS ORDERED: SLF 3 ML SYR IV PRN (22:45)
[2016-09-03 23:59] VITALS: BP 143/68
[2016-09-04 00:20] LABS: MEAN CORPUSCULAR HEMOGLOBIN 25.7 pg (27.0-33.0); MEAN CORPUSCULAR HGB CONC 31.2 g/dl (32.0-36.5); MEAN CORPUSCULAR VOLUME 82.4 fl (80.0-96.0); WHITE BLOOD COUNT 3.7 K/mm3 (4.0-10.0)
[2016-09-04 05:02] VITALS: BP 140/66
[2016-09-04] MEDS: SLF 3 ML SYR IV SCH ×3 (05:08→22:00)
[2016-09-04 05:48] LABS: MEAN CORPUSCULAR HGB CONC 31.1 g/dl (32.0-36.5); MEAN CORPUSCULAR VOLUME 83.5 fl (80.0-96.0); RED CELL DISTRIBUTION WIDTH 17.1 % (11.5-14.5); WHITE BLOOD COUNT 3.4 K/mm3 (4.0-10.0)
[2016-09-04 08:00] VITALS: BP 142/70
[2016-09-04 08:11] LABS: ANION GAP 8 MEQ/L (8-16); BLOOD UREA NITROGEN 20 MG/DL (7-18); CALCIUM LEVEL 8.1 MG/DL (8.8-10.2); CARBON DIOXIDE LEVEL 25 MEQ/L (21-32); CHLORIDE LEVEL 107 MEQ/L (98-107); CREATININE FOR GFR 1.22 MG/DL (0.70-1.30); GLUCOSE, FASTING 87 MG/DL (83-110); POTASSIUM SERUM 4.1 MEQ/L (3.5-5.1); SODIUM LEVEL 140 MEQ/L (136-145)
[2016-09-04] MEDS: MESALAMINE 400 MG CAPSULE DELAYED RELEASE (DELZICOL) PO SCH ×2 (09:22→20:36)
[2016-09-04] MEDS: MULTIVITAMINS/MINERALS THERAP 1 TAB PO SCH (09:22)
--- NOTE | 2016-09-04 13:32 | IPNPDOC ---
Text Note Date of Service The patient was seen on 09/04/16. NOTE Subjective: Pt feels well after the blood transfusions. CP completely resolved. No palpitations/syncopal episodes. Objective: Vitals: (see below) General: No acute distress, laying comfortably in bed. HEENT: Moist mucous membranes. Neck: No JVD or lymphadenopathy Cardiac: RRR, Systolic murmur loudest at the LLSB. Pulm: Clear to auscultation b/l. No wheezing, rhonchi Abd: NT/ND + BS Ext: No edema or cyanosis Labs (see below) Images: CXR 09/03/16 Impression: Negative portable chest. There is no interval change. Echocardiogram 06/2016 IMPRESSION: 1. Normal global left ventricular systolic function with probably mild concentric left ventricular hypertrophy. There are features of left ventricular diastolic dysfunction, grade 1. 2. Aortic valve sclerosis with trace aortic regurgitation and moderate aortic stenosis. The peak gradient across the aortic valve was 43.96 mmHg with a mean gradient of 27 mmHg, and an aortic valve area of 0.81 cm2. 3. Mitral annulus calcification with trace mitral regurgitation and probably mildly enlarged left atrium. 4. Mild tricuspid regurgitation with mild pulmonary hypertension. Assessment/Plan 1. Symptomatic anemia - likely 2/2 MDS. S/p 2U PRBC. Symptoms resolved. No melanotic stools/hematochezia/hemoptysis/gross hematuria. Will cont to observe. 2. Atypical CP - likely 2/2 symptomatic anemia. Echo 06/2016 (see above). CE negative. EKG with no acute ST changes. Will likely need outpt cardio f/u for possible stress test and evaluation of aortic valve. 3. MDS - s/p 2 U PRBC. Follows up with Dr. Arguello. 4. H/o Diastolic HF - compensated 5.Alcohol use - alcohol cessation 6. Ulcerative colitis - on mesalamine. Colonoscopy planned for September 2016. No flare at this time. DVT prophy: OOB/Ambulate Dispo: Plan to d/c in the next 24hr if Hb remains stable tomorrow. VS,Fishbone, I+O VS, Fishbone, I+O Laboratory Tests 09/03/16 23:55 Red Blood Count 3.34 L, Mean Corpuscular Volume 82.4, Mean Corpuscular Hemoglobin 25.7 L, Mean Corpuscular Hemoglobin Concent 31.2 L, Red Cell Distribution Width 17.0 H 09/04/16 05:16 Red Blood Count 3.29 L, Mean Corpuscular Volume 83.5, Mean Corpuscular Hemoglobin 26.0 L, Mean Corpuscular Hemoglobin Concent 31.1 L, Red Cell Distribution Width 17.1 H, Calcium Level 8.1 L Vital Signs Date Time Temp Pulse Resp B/P Pulse Ox O2 Delivery O2 Flow Rate FiO2 09/04/16 08:00 98.6 90 20 142/70 99 Room Air I&O- Last 24 Hours up to 6 AM 09/04/16 06:00 Intake Total 150 ml Output Total 1625 ml Balance -1475 ml RHODA VU MD Sep 04, 2016 13:32
[2016-09-04 16:00] VITALS: BP 160/77
[2016-09-04 20:00] VITALS: BP 158/72
[2016-09-04 23:59] VITALS: BP 141/92
[2016-09-05 04:45] VITALS: BP 139/64
[2016-09-05 05:41] LABS: MEAN CORPUSCULAR HEMOGLOBIN 25.6 pg (27.0-33.0); MEAN CORPUSCULAR HGB CONC 30.9 g/dl (32.0-36.5); MEAN CORPUSCULAR VOLUME 82.8 fl (80.0-96.0); WHITE BLOOD COUNT 3.5 K/mm3 (4.0-10.0)
[2016-09-05 05:54] LABS: CALCIUM LEVEL 8.7 MG/DL (8.8-10.2); CREATININE FOR GFR 1.23 MG/DL (0.70-1.30); GLOMERULAR FILTRATION RATE 59.4 (>35); POTASSIUM SERUM 4.1 MEQ/L (3.5-5.1)
[2016-09-05] MEDS: SLF 3 ML SYR IV SCH (06:55)
[2016-09-05 07:15] VITALS: BP 162/76
[2016-09-05] MEDS: MULTIVITAMINS/MINERALS THERAP 1 TAB PO SCH (09:18)
[2016-09-05] MEDS: MESALAMINE 400 MG CAPSULE DELAYED RELEASE (DELZICOL) PO SCH (09:18)
--- NOTE | 2016-09-05 13:39 | DS.PDOC ---
Discharge Summary General Date of Admission Sep 03, 2016 at 13:36 Date of Discharge 09/05/16 Attending Physician: RHODA VU MD Discharge Summary PROCEDURES PERFORMED DURING STAY: None. ADMITTING/DISCHARGE DIAGNOSES: 1. Symptomatic anemia secondary to MDS status post 2 units PRBC 2. Atypical chest pain, resolved. Will need outpatient cartilage of follow-up for possible stress test 3. History of diastolic heart failure 4. Aortic valve sclerosis with the valve area of 0.81cm2 5. Alcohol use 6. Ulcerative colitis COMPLICATIONS/CHIEF COMPLAINT: Symptomatic Anemia. HISTORY OF PRESENT ILLNESS/HOSPITAL COURSE: His 86-year-old male with a past history of MDS, ulcerative colitis, diastolic heart failure presents complaining of shortness of breath, chest pressure. Patient was noted to have anemia from which she was symptomatic. Patient was transfused 2 units PRBC after which his symptoms have completely resolved. Patient did not know any source of bleeding. He remained hemodynamically stable and his hemoglobin remained stable after his 2 units PRBC. Given his chest pressure, this is likely secondary to symptomatic anemia, which has resolved. Patient will likely benefit from a stress test which he will need to follow-up with a stack clerk outpatient. Patient will also need further evaluation of his aortic valve, which has a valve area of 0.81cm2. He states he will have his primary care refer him to a stack clerk. Patient's currently asymptomatic, hemodynamically stable, and will be discharged home with outpatient follow-up with his primary care physician and Dr. Arguello. DISCHARGE MEDICATIONS: Please see below. ALLERGIES: Please see below. PHYSICAL EXAMINATION ON DISCHARGE: Vitals: (see below) General: No acute distress, laying comfortably in bed. HEENT: Moist mucous membranes. Neck: No JVD or lymphadenopathy Cardiac: RRR, Systolic murmur loudest at the LLSB. Pulm: Clear to auscultation b/l. No wheezing, rhonchi Abd: NT/ND + BS Ext: No edema or cyanosis LABORATORY DATA: Please see below. IMAGING: CXR 09/03/16 Impression: Negative portable chest. There is no interval change. Echocardiogram 06/2016 IMPRESSION: 1. Normal global left ventricular systolic function with probably mild concentric left ventricular hypertrophy. There are features of left ventricular diastolic dysfunction, grade 1. 2. Aortic valve sclerosis with trace aortic regurgitation and moderate aortic stenosis. The peak gradient across the aortic valve was 43.96 mmHg with a mean gradient of 27 mmHg, and an aortic valve area of 0.81 cm2. 3. Mitral annulus calcification with trace mitral regurgitation and probably mildly enlarged left atrium. 4. Mild tricuspid regurgitation with mild pulmonary hypertension. PROGNOSIS: Fair ACTIVITY: As tolerated. DIET: Low-sodium DISCHARGE PLAN/DISPOSITION: 01 Home, Self-Care. DISCHARGE INSTRUCTIONS: 1. Follow-up with PCP as well as Dr. Arguello in one to 2 weeks. Patient was advised to follow-up with his primary care physician so he can refer him to a stack clerk to address his aortic valve. DISCHARGE CONDITION: Stable. TIME SPENT ON DISCHARGE: Greater than 30 minutes. Vital Signs/I&Os Vital Signs Date Time Temp Pulse Resp B/P Pulse Ox O2 Delivery O2 Flow Rate FiO2 09/05/16 07:15 97.5 93 20 162/76 97 Room Air I&O- Last 24 Hours up to 6 AM 09/05/16 06:00 Intake Total 920 ml Output Total 750 ml Balance 170 ml Laboratory Data Labs 24H Laboratory Tests 2 09/05/16 05:24: Anion Gap 7L, Blood Urea Nitrogen 25H, Creatinine 1.23, Sodium Level 140, Potassium Level 4.1, Chloride Level 104, Carbon Dioxide Level 29, Calcium Level 8.7L, Glomerular Filtration Rate 59.4 CBC/BMP Laboratory Tests 09/05/16 05:24 Calcium Level 8.7 L, Red Blood Count 3.43 L, Mean Corpuscular Volume 82.8, Mean Corpuscular Hemoglobin 25.6 L, Mean Corpuscular Hemoglobin Concent 30.9 L, Red Cell Distribution Width 17.0 H Discharge Medications Scheduled Mesalamine (Lialda) 1.2 Gm Tab 1.2 GM PO BID (Reported) Multivitamins *[facility] STOCKED* (Thera M Plus *[facility] STOCKED*) 1 Tab Tab 1 TAB PO DAILY (Reported) Allergies Coded Allergies: No Known Allergies (Unverified , 07/07/16) RHODA VU MD Sep 05, 2016 13:39
== END 2016-09-05 13:15 | disposition home or self-care (01) ==
LOC: M ED 11:11 → M ED INP 13:36 → M PCU 15:04
PROVIDERS: ADMIT Internal Medicine; ATTEND Internal Medicine
DX: D64.9 Anemia, unspecified (principal); D46.9 Myelodysplastic syndrome, unspecified; R07.89 Other chest pain; I35.0 Nonrheumatic aortic (valve) stenosis; F10.10 Alcohol abuse, uncomplicated; K51.90 Ulcerative colitis, unspecified, without complications; R06.02 Shortness of breath; Z79.899 Other long term (current) drug therapy
CPT/HCPCS: 36415; 36430; 71010; 80048; 80076; 82550; 82553; 83880; 84484; 85025; 85027; 86850; 86900; 86901; 86920; 93005; 93041; 94760; 99285; G0378; P9016

== ENCOUNTER → 2016-09-17 | Outpatient (REF) | payer MEDICARE, OTHER ==
[~2016-09-17] MED LIST changes: +OMEP40CA2 PO; +TRAM50TA2 PO
== END ==
LOC: M LAB REF 17:17
PROVIDERS: ATTEND Internal Medicine Medical Oncology
DX: D46.9 Myelodysplastic syndrome, unspecified (principal)

== ENCOUNTER 2016-10-23 11:05 | Outpatient (CLI) | payer MEDICARE, OTHER ==
[~2016-10-23] VITALS: Ht 177.8 cm; Wt 66.4 kg
[~2016-10-23 11:05] MED LIST changes: +ACETAMINOPHEN TAB 650MG DOSE (2X325MG) PO SCH; +diphenhydrAMINE 25 MG CAP PO SCH
[2016-10-23 11:25] VITALS: BP 155/74
== END 2016-10-23 17:35 | disposition home or self-care (01) ==
LOC: M OPCLIPED 11:05 → M PED 11:15 → M OPCLIPED 17:35
PROVIDERS: ATTEND Internal Medicine Medical Oncology
DX: D64.9 Anemia, unspecified (principal); D46.9 Myelodysplastic syndrome, unspecified; Z79.899 Other long term (current) drug therapy
CPT/HCPCS: 36430; 86850; 86900; 86901; 86920; P9016

== ENCOUNTER → 2016-11-03 | Outpatient (CLI) | payer MEDICARE, OTHER ==
[~2016-11-03] VITALS: Ht 177.8 cm; Wt 66.4 kg
[~2016-11-03] MED LIST changes: -ACETAMINOPHEN TAB 650MG DOSE (2X325MG) PO SCH; +LIDOCAINE 2% INJ 100 MG/5 ML SDV (FOR ANES.) As Ordered ONE; +NS 1,000 ML IV ONE; +PROPOFOL 500 MG/50 ML VIAL As Ordered ONE; -diphenhydrAMINE 25 MG CAP PO SCH
[2016-11-03 13:33] VITALS: BP 158/77
== END | disposition home or self-care (01) ==
LOC: M OPP 11:06
PROVIDERS: ATTEND Internal Medicine Gastroenterology
DX: D50.9 Iron deficiency anemia, unspecified (principal); K55.20 Angiodysplasia of colon without hemorrhage; K51.30 Ulcerative (chronic) rectosigmoiditis without complications; K64.0 First degree hemorrhoids; R07.89 Other chest pain; R19.7 Diarrhea, unspecified; K62.89 Other specified diseases of anus and rectum; R63.4 Abnormal weight loss; K22.2 Esophageal obstruction; R01.1 Cardiac murmur, unspecified; K51.90 Ulcerative colitis, unspecified, without complications; D46.9 Myelodysplastic syndrome, unspecified; M19.90 Unspecified osteoarthritis, unspecified site; G47.8 Other sleep disorders; R06.83 Snoring; Z85.828 Personal history of other malignant neoplasm of skin; Z87.891 Personal history of nicotine dependence; Z79.899 Other long term (current) drug therapy; Z80.9 Family history of malignant neoplasm, unspecified

== ENCOUNTER → 2016-11-13 | Outpatient (REF) | payer MEDICARE, OTHER ==
[~2016-11-13] MED LIST changes: -LIDOCAINE 2% INJ 100 MG/5 ML SDV (FOR ANES.) As Ordered ONE; -NS 1,000 ML IV ONE; -PROPOFOL 500 MG/50 ML VIAL As Ordered ONE
== END ==
LOC: M LAB REF 12:55
PROVIDERS: ATTEND Internal Medicine Medical Oncology
DX: D46.9 Myelodysplastic syndrome, unspecified (principal); Z79.899 Other long term (current) drug therapy

== ENCOUNTER → 2016-11-14 | Outpatient (CLI) | payer MEDICARE, OTHER ==
[~2016-11-14] VITALS: Ht 177.8 cm; Wt 65.3 kg
[~2016-11-14] MED LIST changes: +ACETAMINOPHEN TAB 650MG DOSE (2X325MG) PO SCH; +NS 1,000 ML IV ONE; +PROPOFOL 200 MG/20 ML VIAL As Ordered ONE; +diphenhydrAMINE 25 MG CAP PO SCH
--- NOTE | 2016-11-14 11:10 | ROOR ---
Patient Name: Saroj Jain Procedure Date: 11/14/2016 10:42 AM Date of : 1930 Age: 86 Room: [facility] Gender: Male Note Status: Finalized Procedure: Colonoscopy to 35 cms + Biopsies + Carbon Spot Marking. Indications: Iron deficiency anemia, Preoperative assessment, Cancer of the sigmoid colon, Follow-up of cancer of the sigmoid colon Providers: Juan M Najera MD Referring MD: Kvng Thomas MD Requesting Provider: Medicines: Monitored Anesthesia Care Complications: No immediate complications. Procedure: Pre-Anesthesia Assessment: - The heart rate, respiratory rate, oxygen saturations, blood pressure, adequacy of pulmonary ventilation, and response to care were monitored throughout the procedure. The Colonoscope was introduced through the anus and advanced to the sigmoid colon to examine a stricture. This was the intended extent. The colonoscopy was performed without difficulty. The patient tolerated the procedure well. The quality of the bowel preparation was excellent. Findings: The perianal and digital rectal examinations were normal. Non-bleeding internal hemorrhoids were found during retroflexion. The hemorrhoids were Grade I (internal hemorrhoids that do not prolapse). Inflammation characterized by congestion (edema), erosions, erythema, friability, granularity, pseudopolyps and aphthous ulcerations was found as large patches surrounded by normal mucosa in the recto-sigmoid colon. The area 10 cm proximal to anus and the area 25 cm proximal to anus were spared. This was severe. Area was successfully injected with 5 mL Spot (carbon black) for tattooing. Carbon Spot Marking at 10 cms and at 25 cms. Biopsies taken. Normal above 35 cms. Impression: - Non-bleeding internal hemorrhoids. - Proctosigmoid ulcerative colitis. Inflammation was found in the recto-sigmoid colon. This was severe. Injected. - No specimens collected. Recommendation: - Patient has a contact number available for emergencies. The signs and symptoms of potential delayed complications were discussed with the patient. Return to normal activities tomorrow. Written discharge instructions were provided to the patient. - Discharge patient to home. - Continue present medications. - Await pathology results. - Telephone GI clinic for pathology results in 1 week. - Refer to a surgeon. - The findings and recommendations were discussed with the patient's family. Juan M Najera MD Juan M Najera MD 11/14/2016 11:09:30 AM This report has been signed electronically. Number of Addenda: 0 Note Initiated On: 11/14/2016 10:42 AM Estimated Blood Loss: Estimated blood loss: none.
[2016-11-14 12:24] VITALS: BP 142/80
== END | disposition home or self-care (01) ==
LOC: M OPP 08:00
PROVIDERS: ATTEND Internal Medicine Gastroenterology
DX: Z01.818 Encounter for other preprocedural examination (principal); C18.7 Malignant neoplasm of sigmoid colon; K51.30 Ulcerative (chronic) rectosigmoiditis without complications; K64.0 First degree hemorrhoids; D50.9 Iron deficiency anemia, unspecified; R01.1 Cardiac murmur, unspecified; R07.9 Chest pain, unspecified; M19.90 Unspecified osteoarthritis, unspecified site; D46.9 Myelodysplastic syndrome, unspecified; Z85.828 Personal history of other malignant neoplasm of skin; Z87.891 Personal history of nicotine dependence; Z79.899 Other long term (current) drug therapy
CPT/HCPCS: 36430; 45381; 88305; P9016

== ENCOUNTER → 2016-12-02 | Outpatient (REF) | payer MEDICARE, OTHER ==
[~2016-12-02] MED LIST changes: -ACETAMINOPHEN TAB 650MG DOSE (2X325MG) PO SCH; -NS 1,000 ML IV ONE; -PROPOFOL 200 MG/20 ML VIAL As Ordered ONE; -diphenhydrAMINE 25 MG CAP PO SCH
== END ==
LOC: M LAB REF 12:24
PROVIDERS: ATTEND Internal Medicine Medical Oncology
DX: D64.9 Anemia, unspecified (principal)

== ENCOUNTER 2016-12-11 07:30 | Inpatient (IN) | payer MEDICARE, OTHER ==
--- NOTE | 2016-12-09 14:36 | HPE ---
DATE OF ADMISSION: 12/11/2016 ADMITTING DIAGNOSIS: Adenocarcinoma of the rectosigmoid. HISTORY OF PRESENT ILLNESS: The patient is a very pleasant 86-year-old man with a long history of ulcerative colitis. He has been followed fairly regularly with endoscopic exams. His symptoms have been under good control with medical management. He has recently had some issues with anemia, apparently primarily related to a myelodysplastic syndrome. He has required several transfusions. On November 03 he underwent a colonoscopy and an upper endoscopy. The upper endoscopy showed no evident bleeding source. At his colonoscopy he was noted to have an area of inflammation with some erythema and friability and pseudopolyps in the rectosigmoid region. Biopsies were obtained. His pathology from those biopsies revealed intramucosal adenocarcinoma with two small foci of adenocarcinoma identified. There was some chronic inflammation noted adjacent. As a result of this finding, the patient had a repeat colonoscopic exam on November 14. On this occasion, Dr. Najera performed only a limited endoscopy to 35 cm. He performed carbon spot marking with additional biopsies. He reported that the distal to 10 cm and more proximal than 25 cm, the mucosal lining appeared normal. The area between 10 and 25 cm in the anal verge was noted to have significant changes with erosions, erythema, friability and pseudopolyps. He performed a spot marking at the area of the distal extent of the change and the proximal extent of the change as well. The additional biopsies again identified fragments of colonic mucosa with intermixed adenocarcinoma which was moderately differentiated. The pathologist noted that it was impossible to determine the depth of invasion of the cancer. The patient was referred to me and is now admitted to undergo a robotic-assisted laparoscopic low anterior resection for removal of the involved area. The patient has been counseled regarding the surgery and has performed an antibiotic and mechanical bowel preparation with SUPREP, neomycin, and Flagyl prior to admission. MEDICATIONS: The patient's current medications include: - Lialda 1.2 grams 2 tablets daily - omeprazole 40 mg p.o. daily - multivitamin daily. He was provided neomycin, Flagyl, and SUPREP for his preoperative bowel preparation. ALLERGIES: The patient denies any known drug allergies. PAST SURGICAL HISTORY: His surgical history is negative other than several endoscopic exams over the years. Several skin cancers excised as well, primarily basal cell carcinomas. He did have a needle biopsy of the prostate some years ago. PAST MEDICAL HISTORY: His medical history is significant for myelodysplastic syndrome. He has had anemia secondary to this requiring intermittent transfusion. He has a history of some mild or grade 1 diastolic dysfunction with some left ventricular hypertrophy. He has a history of ulcerative colitis for 30 years or more. His symptoms have generally been well controlled medically. He denies any obvious rectal bleeding or melena. FAMILY HISTORY: Is noncontributory. SOCIAL HISTORY: Patient denies any tobacco use. He does drink some alcohol socially. He is a former smoker, but quit 40 years ago. REVIEW OF SYSTEMS: Patient denies any chest pain or palpitations. He has had no cough, wheezing or sputum production. He has had no upper respiratory infection symptoms. He denies any history of seizure or stroke. He has not had any obvious rectal bleeding. He has no dysphasia, heartburn, jaundice or dark urine. The patient denies any dysuria or hematuria. He has no history of deep vein thrombosis (DVT) or pulmonary embolism. Remainder of the review of systems is unremarkable. PHYSICAL EXAMINATION: Physical exam reveals a pleasant elderly man in no obvious discomfort. He is alert, oriented and cooperative. His weight is recorded as 66 kg with a height of 67 inches yielding a BMI of approximately 23. Sclerae are anicteric. Mucous membranes are moist. The neck is supple without mass or bruit. Heart exam shows a regular rate and rhythm. The lungs are clear to auscultation bilaterally. The abdomen is flat. The abdomen is thin. He has bowel sounds present in all four quadrants. There is no palpable mass. There is no tenderness. He has no evident hernia. There is no inguinal adenopathy. Extremities are thin. He has palpable radial and pedal pulses. LABORATORY FINDINGS: The patient has had a recent CEA level on December 02 that was 0.8. He has not had any other recent chemistry or hematologic studies available to me at the time of this dictation. IMPRESSION: 1. Adenocarcinoma of the rectosigmoid arising in a patient with a long history of ulcerative colitis. 2. Myelodysplastic syndrome. 3. 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 4. Grade 1 diastolic dysfunction with left ventricular hypertrophy. 5. Moderate aortic stenosis based on an echocardiogram from 07/08/2016. 6. Trace mitral regurgitation. PLAN: The patient is being admitted to undergo a robotic-assisted laparoscopic low anterior resection. He has changes in his rectosigmoid mucosa that extend from approximately 10 to approximately 25. The proximal and distal extents of his abnormal lining were marked with carbon spot marker by Dr. Najera. The patient is having a preoperative evaluation with his primary care physician several days prior to the scheduled surgery date. He was provided prescriptions to perform a mechanical and antibiotic bowel preparation utilizing SUPREP, neomycin, and Flagyl. A Jonas catheter will be inserted at the time of surgery for the immediate perioperative period. He will receive a dose of Invanz preoperatively and will also be given a dose of Entereg preoperatively. The patient was counseled regarding the plan for surgery to include the risks and possible benefits. Risks include, but are not limited to, bleeding, infection, scarring, adverse drug reaction, need for further surgery, injury of internal organ, development of hernia, and anastomotic leak. The patient had an opportunity to ask questions and desires to proceed with the surgery as I have outlined it. LON
[~2016-12-11] VITALS: Ht 177.8 cm; Wt 65.3 kg
--- NOTE | 2017-01-08 05:38 | HPE ---
DATE OF ADMISSION: 01/08/2017 ADMITTING DIAGNOSIS: Adenocarcinoma of the rectosigmoid. HISTORY OF THE PRESENT ILLNESS: The patient is a very pleasant 86-year-old man with a long history of ulcerative colitis. He has been followed regularly with endoscopic exams. His symptoms have been under good control with medical management. He recently had some issues with anemia, which are likely primarily related to a myelodysplastic syndrome. He has required several transfusions. On 11/03/2016, he underwent a colonoscopy and an upper endoscopy. The upper endoscopy showed no evident bleeding source. At his colonoscopy, he was noted to have an area of inflammation with some erythema and friability and pseudopolyps in the rectosigmoid region. Biopsies were obtained. His pathology revealed intramucosal adenocarcinoma with two small foci of adenocarcinoma identified. There was some chronic inflammation noted adjacent to these areas. As a result of this finding, the patient had a repeat colonoscopic exam on 11/14/2016. On this occasion, Dr. Najera performed only a limited endoscopy to 35 cm. He performed carbon spot marking with additional biopsies. He reported that the area distal to 10 cm and more proximal than 25 cm appeared to have normal mucosa. The area between 10 and 25 cm from the anal verge was noted to have significant changes with erosions, erythema, friability, and pseudopolyps. He performed a spot marking at the area of the distal extent of the change and the proximal extent of the change, as well. The additional biopsies again identified fragments of colonic mucosa with intermixed adenocarcinoma, which was moderately differentiated. The pathologist noted that it was impossible to determine the depth of invasion of the cancer. The patient was referred to me and is now admitted to undergo a robotic-assisted laparoscopic low anterior resection for removal of the involved area. He had been scheduled for this surgery approximately a month ago, but there was a snag at the last minute with some questions regarding the degree of his aortic stenosis and his surgery was ultimately cancelled. He is now rescheduled with a cardiac clearance for the procedure and will be undergoing his robotic-assisted laparoscopic low anterior resection. The patient was counseled regarding the surgery and has performed an antibiotic and mechanical bowel preparation with Suprep, neomycin, and Flagyl prior to admission. MEDICATIONS: The patient's only current medications include: - Lialda 1.2 grams two tablets daily - omeprazole 40 mg by mouth daily - multivitamin daily ALLERGIES: Patient denies any known drug allergies. SURGICAL HISTORY: Is significant for several endoscopic exams over the years. He has had several small skin cancers excised as well, primarily basal cell carcinomas. He had a needle biopsy of the prostate. MEDICAL HISTORY: Is significant for a myelodysplastic syndrome. He has had anemia secondary to this, requiring intermittent transfusion. He has a history of some mild or grade 1 diastolic dysfunction with some left ventricular hypertrophy. He has a history of ulcerative colitis for 30 years or more. He has a history of aortic stenosis, which was most recently assessed with an echocardiogram on 10/31/2016. The cardiac clearance from Dr. Horton indicates that he feels the degree of aortic stenosis is moderate and that the patient remains asymptomatic at this time and is felt to be at low risk for a colonic resection. FAMILY HISTORY: Is noncontributory. SOCIAL HISTORY: Patient denies any tobacco use. He does have a history of smoking in the distant past but quit 40 years ago. He has an occasional alcoholic beverage socially. REVIEW OF SYSTEMS: Reveals no history of chest pain or palpitations. He has had no cough, wheezing, or sputum production. He denies any upper respiratory infection symptoms. He denies any history of seizure or stroke. He has not had any obvious rectal bleeding. He has had no dysphagia, heartburn, jaundice, or dark urine. He denies any history of dysuria or hematuria. He has no history of deep venous thrombosis (DVT) or pulmonary embolism. Remainder of the review of systems is unremarkable. PHYSICAL EXAMINATION: Reveals a pleasant elderly man in no obvious discomfort. He is alert, oriented, and cooperative. His weight at his most recent office visit was recorded as 66 kg with a height of 67 inches, yielding a body mass index (BMI) of approximately 23. Sclerae are anicteric. Mucous membranes are moist. The neck is supple without mass or bruit. Heart exam shows a regular rate and rhythm. The lungs are clear to auscultation bilaterally. The abdomen is flat. The abdomen is thin. Palpation reveals the abdomen to be soft throughout with no palpable mass. He has normoactive bowel sounds in all four quadrants. There is no evident abdominal hernia. He has no inguinal adenopathy. The extremities are thin, and he has palpable radial and pedal pulses. RECENT LABORATORY FINDINGS: Revealed a CEA level on 12/02/2016 that was low normal at 0.8. IMPRESSION: 1. Adenocarcinoma of the rectosigmoid arising in a patient with a long history of ulcerative colitis. 2. Moderate aortic stenosis, asymptomatic. 3. Myelodysplastic syndrome. 4. 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 5. Grade 1 diastolic dysfunction with left ventricular hypertrophy. 6. Trace mitral regurgitation. PLAN: The patient is now admitted to undergo a robotic-assisted laparoscopic low anterior resection. He has changes in his rectosigmoid mucosa spanning an area from approximately 10 to approximately 25 cm proximal to the anal verge. The proximal and distal margins of this area were marked with carbon spot marker by Dr. Najera at his most recent endoscopic exam. Primary physician preoperatively and his window shade estimator's evaluation of his recent echocardiogram indicated that the window shade estimator felt he was at low risk for his planned colonic surgery. Patient was to perform a preoperative mechanical and antibiotic bowel preparation on the day before surgery utilizing Suprep, neomycin, and Flagyl. Patient will receive a dose of Invanz preoperatively. He will also receive a dose of Entereg preoperatively. A Jonas catheter will be inserted at the time of surgery for the immediate perioperative period. Patient was counseled regarding the plan for surgery to include the risks and possible benefits. He is scheduled for a robotic-assisted laparoscopic low anterior resection with anastomosis. The risks include, but are not limited to, bleeding , infection, scarring, adverse drug reaction, need for further surgery, injury of internal organ, development of hernia, and anastomotic leak. The patient had an opportunity to ask questions and desires to proceed with the surgery as I have outlined it. Edited: aris 01/09/2017 1109 MTDD
[2017-01-08] MEDS ORDERED: LR 1,000 ML IV SCH ×2 (05:45→17:00)
[2017-01-08] MEDS ORDERED: LR 1,000 ML IV ONE (05:45)
[2017-01-08] MEDS ORDERED: ALVIMOPAN 12 MG CAPSULE (ENTEREG) PO ONE (06:00)
[2017-01-08] MEDS ORDERED: ACETAMINOPHEN 325 MG TAB PO ONE (06:00)
[2017-01-08] MEDS ORDERED: ERTAPENEM SODIUM 1 GM in NS MINI-BAG PLUS 50 ML IV ONE (06:00)
[2017-01-08 06:15] LABS: INR 1.04
[2017-01-08 06:41] LABS: MEAN CORPUSCULAR HEMOGLOBIN 30.7 pg (27.0-33.0); MEAN CORPUSCULAR HGB CONC 33.4 g/dl (32.0-36.5); MEAN CORPUSCULAR VOLUME 91.7 fl (80.0-96.0); RED CELL DISTRIBUTION WIDTH 16.8 % (11.5-14.5); WHITE BLOOD COUNT 3.6 K/mm3 (4.0-10.0)
[2017-01-08 07:11] LABS: ALBUMIN 3.7 GM/DL (3.2-5.2); CALCIUM LEVEL 8.8 MG/DL (8.8-10.2); CREATININE FOR GFR 1.22 MG/DL (0.70-1.30); PHOSPHORUS LEVEL 2.8 MG/DL (2.5-4.9)
[2017-01-08] MEDS ORDERED: BUPIVACAINE HCL 0.25% 30 ML VIAL As Ordered ONE (07:24)
[2017-01-08] MEDS ORDERED: LIDOCAINE 2% INJ 100 MG/5 ML SDV (FOR ANES.) As Ordered ONE (07:31)
[2017-01-08] MEDS ORDERED: fentaNYL 250 MCG/5 ML INJECTION (J3010) As Ordered ONE (07:31)
[2017-01-08] MEDS ORDERED: MIDAZOLAM INJ 2 MG/2 ML VIAL (J2250) As Ordered ONE (07:31)
[2017-01-08] MEDS ORDERED: PROPOFOL 200 MG/20 ML VIAL As Ordered ONE (07:31)
[2017-01-08] MEDS ORDERED: ROCURONIUM BROMIDE 50 MG/5 ML VIAL/SYRINGE As Ordered ONE ×2 (07:31→11:13)
[2017-01-08] MEDS ORDERED: ETOMIDATE INJ 20MG/10ML VIAL As Ordered ONE (07:44)
[2017-01-08] MEDS ORDERED: ePHEDrine SULFATE 25 MG/5 ML(5MG/ML) SYRINGE As Ordered ONE (08:09)
[2017-01-08] MEDS ORDERED: PHENYLephrine HCL 500 MCG/5 ML (100MCG/ML) SYRINGE (J2370) As Ordered ONE (08:09)
[2017-01-08] MEDS ORDERED: REMIFENTANIL 1MG 3ML VIAL As Ordered ONE (09:44)
[2017-01-08] MEDS ORDERED: dexameTHASONE 4 MG/ML 1ML VIAL (J1100) As Ordered ONE (10:33)
[2017-01-08] MEDS ORDERED: SEVOFLURANE INHAL SOLN 250 ML BTL As Ordered ONE (12:01)
[2017-01-08] MEDS ORDERED: VECURONIUM BROMIDE 10 MG VIAL As Ordered ONE (13:59)
[2017-01-08] MEDS ORDERED: HYDROmorphone HCL 2 MG/ML 1ML VIAL (J1170) As Ordered ONE (14:14)
[2017-01-08] MEDS ORDERED: SUGAMMADEX SODIUM 500 MG/5 ML VIAL (BRIDION) As Ordered ONE (14:49)
[2017-01-08] MEDS ORDERED: ONDANSETRON 4MG/2ML VIAL (J2405) As Ordered ONE (14:51)
[2017-01-08] MEDS ORDERED: ACETAMINOPHEN TAB 650MG DOSE (2X325MG) PO PRN (16:30)
[2017-01-08] MEDS ORDERED: METOCLOPRAMIDE INJ 10MG/2ML VIAL (J2765) IV PRN (16:30)
[2017-01-08] MEDS ORDERED: NORCO, ANEXSIA 5/325MG TABLET (HYDROcodone/ACETAMINOPHEN) PO PRN (16:30)
[2017-01-08] MEDS ORDERED: ONDANSETRON 4MG/2ML VIAL (J2405) IV PRN ×2 (16:30→17:00)
[2017-01-08] MEDS ORDERED: KETOROLAC 30 MG/ML VIAL (J1885) IV PRN (16:30)
[2017-01-08] MEDS ORDERED: MORPHINE 2 MG/ML 1ML SYRINGE IV PRN (16:30)
[2017-01-08] MEDS ORDERED: MEPERIDINE INJ 25 MG/ML VIAL (J2175) IV PRN (17:00)
[2017-01-08] MEDS ORDERED: HYDROmorphone HCL 1 MG/ML SYRINGE (J1170) IV PRN (17:00)
[2017-01-08] MEDS ORDERED: fentaNYL 100 MCG/2 ML INJECTION (J3010) IV PRN (17:00)
[2017-01-08 17:30] VITALS: BP 153/72
[2017-01-08 18:00] VITALS: BP 138/64
[2017-01-08 19:00] VITALS: BP 145/70
[2017-01-08 20:00] VITALS: BP 133/63
[2017-01-08 21:00] VITALS: BP 133/69
[2017-01-08] MEDS: LR 1,000 ML IV SCH (21:25)
[2017-01-08] MEDS: ALVIMOPAN 12 MG CAPSULE (ENTEREG) PO SCH (21:25)
[2017-01-08 22:00] VITALS: BP 133/68
[2017-01-09] MEDS: LR 1,000 ML IV SCH (05:23)
[2017-01-09 06:00] VITALS: BP 131/70
[2017-01-09 06:56] LABS: BASO % 0.2 % (0.0-1.0); EOS % 0.4 % (0.0-3.0); LARGE UNSTAINED CELL # 0.2 K/mm3 (0.0-0.4); LARGE UNSTAINED CELL % 2.6 % (0.0-4.0); LYMPH # 0.6 K/mm3 (1.5-4.5); LYMPH % 7.1 % (24.0-44.0); MEAN CORPUSCULAR HEMOGLOBIN 31.1 pg (27.0-33.0); MEAN CORPUSCULAR HGB CONC 33.5 g/dl (32.0-36.5); MEAN CORPUSCULAR VOLUME 92.9 fl (80.0-96.0); MONO # 1.6 K/mm3 (0.0-0.8); MONO % 18.8 % (0.0-5.0); NEUTROPHILS # 5.9 K/mm3 (1.8-7.7); NEUTROPHILS % 70.9 % (36.0-66.0); PLATELET COUNT, AUTOMATED 100 k/mm3 (150-450); RED CELL DISTRIBUTION WIDTH 16.8 % (11.5-14.5); WHITE BLOOD COUNT 8.3 K/mm3 (4.0-10.0)
[2017-01-09 07:19] LABS: ALBUMIN 2.9 GM/DL (3.2-5.2); ALBUMIN/GLOBULIN RATIO 0.85 (1.00-1.93); ALKALINE PHOSPHATASE 60 U/L (45-117); ALT/SGPT 27 U/L (12-78); ANION GAP 7 MEQ/L (8-16); AST/SGOT 35 U/L (15-37); BILIRUBIN,TOTAL 0.5 MG/DL (0.2-1.0); BLOOD UREA NITROGEN 15 MG/DL (7-18); CARBON DIOXIDE LEVEL 28 MEQ/L (21-32); CHLORIDE LEVEL 109 MEQ/L (98-107); GLOMERULAR FILTRATION RATE > 60.0 (>35); GLUCOSE, FASTING 87 MG/DL (83-110); POTASSIUM SERUM 3.8 MEQ/L (3.5-5.1); SODIUM LEVEL 144 MEQ/L (136-145); TOTAL PROTEIN 6.3 GM/DL (6.4-8.2)
[2017-01-09] MEDS: ALVIMOPAN 12 MG CAPSULE (ENTEREG) PO SCH ×2 (08:50→20:31)
[2017-01-09] MEDS: ENOXAPARIN 40 MG/0.4 ML SYRINGE (J1650) SC SCH (08:50)
[2017-01-09 14:00] VITALS: BP 148/84
[2017-01-09 20:00] VITALS: O2SAT 98
[2017-01-09 22:00] VITALS: BP 149/70
[2017-01-10 06:00] VITALS: BP 174/74
[2017-01-10 09:00] VITALS: O2SAT 98
[2017-01-10] MEDS: ENOXAPARIN 40 MG/0.4 ML SYRINGE (J1650) SC SCH (09:06)
[2017-01-10] MEDS: ALVIMOPAN 12 MG CAPSULE (ENTEREG) PO SCH (09:06)
[2017-01-10 14:00] VITALS: BP 148/68
[2017-01-10 22:00] VITALS: BP 148/67
[2017-01-11 06:00] VITALS: BP 140/73
[2017-01-11] MEDS: ENOXAPARIN 40 MG/0.4 ML SYRINGE (J1650) SC SCH (09:39)
--- NOTE | 2017-01-18 07:32 | RO ---
DATE OF PROCEDURE: 01/08/2017 PREOPERATIVE DIAGNOSIS: Rectosigmoid carcinoma arising in a background of ulcerative colitis. POSTOPERATIVE DIAGNOSIS: PROCEDURES PERFORMED: 1. Robotic-assisted laparoscopic low anterior resection. 2. Mobilization of the splenic flexure. 3. [place]-rectal anastomosis SURGEON: Ha Lombardi MD OPERATIONS SUPPORT COORDINATOR: ANESTHESIA: General. INDICATIONS FOR PROCEDURE: The patient is an 86-year-old man with a long history of ulcerative colitis. He had undergone colonoscopy in October that showed an area of inflammation with some friability and pseudopolyps in the rectosigmoid area. Biopsies showed two small foci of adenocarcinoma with some chronic inflammation. Repeat colonoscopy on November 14 confirmed the findings of some inflammatory and pseudopolyp changes, extended from 10 cm to 25 cm proximal to the anal verge. The proximal and distal extents of the abnormal area were marked with the injection of spot marker. The patient was referred for resection and he is now for a robotic-assisted laparoscopic low anterior resection. OPERATIVE PROCEDURE: The patient was placed supine on the operating table. Thromboembolic deterrent stockings (TEDS) and sequentials were utilized. He was placed under general endotracheal anesthesia. A Jonas catheter was inserted. He was moved into a low lithotomy position with his pressure points padded and using padding to prevent movement when the table was tilted. A digital rectal examination showed the anal canal to be slightly scarred posteriorly and also mildly narrowed. I gently dilated this to about two fingerbreadths. There were no palpable abnormalities. The patient's abdomen and perineum were then prepped and draped in a sterile fashion. 0.25% Marcaine was infiltrated at each of the trocar sites. A short infraumbilical midline incision was made and deepened through the subcutaneous tissues and fascia. The peritoneum was opened and a Darrius cannula was inserted. The abdomen was inflated with carbon dioxide gas. A laparoscope was inserted. Initial examination showed a few minimal adhesions in the left lower quadrant lateral to the sigmoid colon and down in the pelvis. A second trocar 5 mm in diameter was placed in the right upper quadrant about at the midclavicular line. A third trocar was placed low in the right lower quadrant. Graspers were inserted. Using the harmonic scalpel, the few adhesions lateral to the sigmoid colon were divided. The patient was tilted to a Trendelenburg position. Inspection of the colon identified the spot marker on the antimesenteric aspect of the sigmoid colon in the distal sigmoid. Inspection more distally did not identify a definite distal margin lisa. A few adhesions of the sigmoid down in the pelvis in the left lateral side were divided so that the colon and rectum could be better inspected. With further inspection there did appear to be a dark lisa just at the peritoneal reflection anteriorly down low in the pelvis anterior to the rectum. This would be consistent with the notes indicating the levels that were marked. Attention was then turned to freeing the descending colon and hepatic flexure. Dissection was carried up along the lateral border of the sigmoid and descending colon. The peritoneum was scored with the Harmonic scalpel and the colon was mobilized medially through the avascular plane. In the high left upper quadrant , the lateral and superior attachments of the splenic flexure were divided using the Harmonic scalpel. The splenic flexure did extend up fairly high into the left upper quadrant adjacent to the spleen. The greater omentum was elevated off of the distal half of the transverse colon and dissection worked from medial to lateral along the transverse colon dividing the superior attachments of the splenic flexure until the entire splenic flexure was nicely freed and mobile. Attention was then returned to the pelvis. The sigmoid colon in its proximal aspect was freed laterally. At this point, the da Elke surgical robot was brought into position and docked over the patient's left hip at approximately a 45 degree angle. An additional trocar site was created in the left midabdomen about at the level of the umbilicus with placement of an 8 mm port. The port in the patient's right lower quadrant was converted to a 13-mm port to allow use of the robotic stapler. A final 8-mm port was placed in the lateral aspect of the left subcostal region. In this manner, there were two 8 mm robotic ports in the left side of the abdomen and the 13-mm port in the right lower quadrant. A 5-mm port in the right upper quadrant was available for an quality control assistant grasper. The camera arm was docked. Two arms were docked on the left, and the right lower quadrant port was docked as well. Attention was turned to dissection of the sigmoid and rectum. I moved to the robotic console. The mesentery of the sigmoid colon was elevated and dissection was carried out to identify the inferior mesenteric artery. The vessels were divided using the vessel sealer. Dissection was then carried up along the descending colon dividing the final medial peritoneal attachments of the descending colon providing for greater mobility of the descending colon. The dissection was then extended distally. The peritoneum was scored down the right and left sides of the mesentery of the rectosigmoid and proximal rectum. The dissection that had begun at the area of the inferior mesenteric vessel was carried across the sacral promontory and then down into the hollow of the sacrum entering the appropriate tissue plane for a total mesorectal excision. Dissection extended inferiorly using primarily cautery dissection to divide the filmy tissues and free the mesorectum. Initially, the posterior dissection was carried out and then moving first to the right and then to the left sides to allow complete dissection of the mesorectum. The dissection was carried far distally. As it extended below the level of the peritoneal reflection, the tissues were opened to the right and left and then carried up anteriorly. The area of the anterior carbon spot marker was somewhat subtle, but dissection was carried distal to this at least 3-4 cm. The mesorectum was then divided distally using cautery and the vessel sealer to divide the tissues and identify the wall of the rectum circumferentially. The rectum was then transected using the da Elke stapler. The stapler was applied from anterior to posterior in several bites. After the third load was applied a defect in the staple line was noted with separation of the edges of the rectum over a distance of about 2 cms. The transection was completed with a fourth load of the stapler. The area of the defect was then held in approximation with clamps and restapled with excision of a thin rim of tissue. The bowel was then divided proximally above the upper spot lisa using an additional load of the da Elke stapler. There was an additional fold of mesenteric fibrofatty tissue at the superior end of the bowel which appeared redundant and unnecessary and seemed likely to get in the way of a stapled anastomosis and this was excised using the vessel sealer. At this point, inspection was carried out for hemostasis, which was excellent. I would note that the left ureter had been clearly identified and preserved. At this point, the robot was undocked. The abdomen was deflated and the Darrius cannula in the infraumbilical incision was removed. That incision was extended to approximately 4 cm and a small self-retaining wound protector type retractor was inserted. The specimen was removed through this incision. The small fragment of excised mesenteric fat was also removed. The proximal end of the colon was delivered. The bowel appeared to be nicely vascularized. I opened the specimen off the field from one end to the other. In the distal area, there were two very small polyps identified. These were perhaps 3-4 mm in size. There was also what appeared to be a denuded area of the mucosa, maybe as large as 1-1/2 to 2 cm in size. It was unclear if this represented an area of healing biopsy site or if this could represent a shallow tumor. The specimen was sent for permanent pathology. I changed gown and gloves and returned to the operative area. The end of the bowel was cleared of some overlying fibrofatty tissue to prevent interference in the anastomosis. The staple line was excised. A pursestring suture of #2-0 Prolene was placed. Because the patients anal opening was somewhat strictured, I elected to proceed with a 25 mm stapler. I would also note that the lumen of the colon was also somewhat limited. The anvil of the stapler was inserted and the pursestring was tied down. The end of the bowel was irrigated and then reduced into the abdomen. At this point the surgical team changed gown and gloves. The retractor was removed. The fascia was closed with interrupted simple sutures of #1 Vicryl. The abdomen was reinflated. The anvil was identified and grasped with an anvil grasper. I then went down to the perineum. The stapler was inserted into the anus and advanced the short distance to the staple line of the rectum. The post of the stapler was advanced through the end of the rectum adjacent to the staple line. The anvil was attached and the stapler was then closed and fired and removed. Inspection of the stapler revealed two intact donuts with a portion of the staple line included in the distal donut. A colonoscope was inserted into the rectum and the anastomosis was inspected. The anastomosis was clearly intact with excellent vascularity above and below and no bleeding from the level of the anastomosis. The anastomosis was perhaps 5-7 cm above the anal verge. The scope was removed. I again changed gown and gloves and returned to the abdomen. The pelvis was irrigated and inspected and there was no evidence of any bleeding. There was no tension on the anastomosis. The left paracolic gutter and splenic flexure areas were inspected and there was no bleeding. The patient was returned to a flat position. The abdomen was deflated and the remaining trocars were all removed. The 13 mm trocar site in the right lower quadrant was inspected and the inner fascia/peritoneum layer was approximated, and the fascia of the external oblique layer was also approximated with Vicryl. The skin incisions were all closed with buried #4-0 Vicryl and Steri-Strips. Light dressings were applied. The patient tolerated the procedure well without apparent complication. He was awakened in the operating room, extubated and moved to the recovery room in stable condition. LON
--- NOTE | 2017-01-20 18:15 | DSES ---
DATE OF ADMISSION: 01/08/2017 DATE OF DISCHARGE: 01/11/2017 ADMITTING DIAGNOSIS: Adenocarcinoma of the rectosigmoid. HISTORY OF PRESENT ILLNESS: The patient is a pleasant 86-year-old man with a long history of ulcerative colitis. He had recently undergone colonoscopy and was found to have some erythema and friability with pseudopolyps in the rectosigmoid region. Biopsies were obtained, and these showed intramucosal adenocarcinoma with two small foci of adenocarcinoma identified. A repeat colonoscopy was performed on the 14 of November and carbon spot marking was performed at the proximal and distal extents of the areas of abnormality. This area extended from approximately 10-25 cm from the anal verge. Additional biopsies done at the second scope again identified intermixed adenocarcinoma. The patient was seen and counseled for a low anterior resection and is now admitted for surgery. HOSPITAL COURSE: The patient performed a full mechanical and antibiotic bowel preparation on the day before admission. He presented on 01/08/2017 and was taken to the operating room where he underwent a robotic-assisted laparoscopic low anterior resection, mobilization of the splenic flexure, and a colorectal anastomosis. His postoperative course was without complication. He was provided with clear liquids on the day of surgery and his diet was advanced the following day. He had little to no pain and required no pain medications after the first day. He made excellent progress and was discharged home on postoperative day #3 , 01/11/2017. His final pathology revealed well to moderately differentiated adenocarcinoma of the colon, which was maximally 1.5 cm in diameter. The carcinoma invaded the submucosa but did not invade the muscularis propria. No metastatic carcinoma was noted in any of the nine dissected pericolonic lymph nodes. FINAL DIAGNOSES: 1. Adenocarcinoma of the proximal rectum. 2. Longstanding history of ulcerative colitis. 3. Moderate aortic stenosis, asymptomatic. 4. Myelodysplastic syndrome. 5. 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 6. Grade 1 diastolic dysfunction with left ventricular hypertrophy. 7. Trace mitral regurgitation. PROCEDURE PERFORMED: Robotic-assisted laparoscopic low anterior resection with takedown of splenic flexure and colorectal anastomosis. DISPOSITION: He was discharged home on postoperative day #3, which was 01/11/2017. He was advised to avoid any lifting greater than 25 pounds or strenuous activity. He could take a regular diet. He was to followup in the office in 1-2 weeks. He could shower as desired. [facility]. He was not provided with any new prescriptions. LON
== END 2017-01-11 13:55 | disposition home or self-care (01) | DRG 330 ==
LOC: M OR 01-08 05:38 → M MS5PR 01-08 17:23
PROVIDERS: ADMIT Surgery; ATTEND Surgery
PROC: 8E0W4CZ Robotic Assisted Procedure of Trunk Region, Percutaneous Endoscopic Approach (ICD-10-PCS; 2017-01-08)
PROC: 0DBN4ZZ Excision of Sigmoid Colon, Percutaneous Endoscopic Approach (ICD-10-PCS; principal; 2017-01-08 07:30)
DX: C19 Malignant neoplasm of rectosigmoid junction (principal); K51.90 Ulcerative colitis, unspecified, without complications; D46.9 Myelodysplastic syndrome, unspecified; I35.0 Nonrheumatic aortic (valve) stenosis; I36.0 Nonrheumatic tricuspid (valve) stenosis; D64.9 Anemia, unspecified; Z79.899 Other long term (current) drug therapy; Z87.891 Personal history of nicotine dependence

== ENCOUNTER 2016-12-29 11:19 | Outpatient (CLI) | payer MEDICARE, OTHER ==
[~2016-12-29] VITALS: Ht 177.8 cm; Wt 65.3 kg
[~2016-12-29 11:19] MED LIST changes: +ACETAMINOPHEN TAB 650MG DOSE (2X325MG) PO SCH; +diphenhydrAMINE 25 MG CAP PO SCH
== END 2016-12-29 16:45 | disposition home or self-care (01) ==
LOC: M INFU 11:19
PROVIDERS: ATTEND Internal Medicine Medical Oncology
DX: D50.9 Iron deficiency anemia, unspecified (principal); D46.9 Myelodysplastic syndrome, unspecified; D47.2 Monoclonal gammopathy; R01.1 Cardiac murmur, unspecified; Z85.828 Personal history of other malignant neoplasm of skin; Z87.891 Personal history of nicotine dependence; Z85.038 Personal history of other malignant neoplasm of large intestine; Z79.899 Other long term (current) drug therapy
CPT/HCPCS: 36430; 86850; 86900; 86901; 86920; P9016

== ENCOUNTER → 2017-01-26 | Outpatient (REF) | payer MEDICARE, OTHER ==
[~2017-01-26] MED LIST changes: -ACETAMINOPHEN TAB 650MG DOSE (2X325MG) PO SCH; -diphenhydrAMINE 25 MG CAP PO SCH
[2017-01-26 14:46] LABS: RETIC HEMOGLOBIN CONTENT CHr 34.3 PG (24-36); RETICULOCYTE % 3.1 % (0.5-1.5)
[2017-01-27 11:29] LABS: PRETREATED FOLATE FOR RBCFOL 22.2 NG/ML
== END ==
LOC: M LAB REF 13:25
PROVIDERS: ATTEND Internal Medicine Medical Oncology
DX: D47.2 Monoclonal gammopathy (principal)

== ENCOUNTER → 2017-03-30 | Outpatient (REF) | payer MEDICARE, OTHER | LOC: M LAB REF 17:28 | PROVIDERS: ATTEND Internal Medicine Medical Oncology | DX: D46.9 Myelodysplastic syndrome, unspecified (principal) ==

== ENCOUNTER → 2017-03-31 | Outpatient (CLI) | payer MEDICARE, OTHER ==
[~2017-03-31] MED LIST changes: +ACETAMINOPHEN TAB 650MG DOSE (2X325MG) PO SCH; +diphenhydrAMINE 25 MG CAP PO SCH
== END ==
LOC: M INFU 11:22 → M OROP 11:22
PROVIDERS: ATTEND Internal Medicine Medical Oncology
DX: D64.9 Anemia, unspecified (principal)
CPT/HCPCS: P9016 ×2

== ENCOUNTER 2017-04-29 13:16 | Outpatient (CLI) | payer MEDICARE, OTHER ==
[2017-04-29 14:00] VITALS: BP 155/70
[2017-04-29 20:05] VITALS: BP 157/72
== END 2017-04-29 20:24 | disposition home or self-care (01) ==
LOC: M OPCLI4PV 13:16 → M MSPAV 13:21 → M OPCLI4PV 20:24
PROVIDERS: ATTEND Internal Medicine Medical Oncology
DX: D61.818 Other pancytopenia (principal); Z79.899 Other long term (current) drug therapy
CPT/HCPCS: 36415; 36430; 86850; 86900; 86901; 86920; P9016

== ENCOUNTER → 2017-06-22 | Outpatient (REF) | payer MEDICARE, OTHER ==
[2017-06-22 19:39] LABS: FERRITIN 48 NG/ML (26-388); IRON (FE) 113 UG/DL (65-175); TOTAL IRON BINDING CAPACITY 365 UG/DL (250-450)
[2017-06-25 00:07] LABS: SOLUBLE TRANSFERRIN RECEPTOR 21.2 nmol/L (12.2-27.3)
== END ==
LOC: M LAB REF 18:52
DX: D46.9 Myelodysplastic syndrome, unspecified (principal)
CPT/HCPCS: 83550

== ENCOUNTER → 2017-09-07 | Outpatient (REF) | payer MEDICARE, OTHER ==
[2017-09-07 14:38] LABS: FERRITIN 27 NG/ML (26-388); IRON (FE) 59 UG/DL (65-175); PERCENT SATURATION 15.1 % (19.7-50.0); TOTAL IRON BINDING CAPACITY 390 UG/DL (250-450)
== END ==
LOC: M LAB REF 13:15
DX: D47.2 Monoclonal gammopathy (principal); D50.9 Iron deficiency anemia, unspecified; C18.9 Malignant neoplasm of colon, unspecified
CPT/HCPCS: 83550

== ENCOUNTER 2017-09-21 09:30 | Outpatient (CLI) | payer MEDICARE, OTHER ==
[2017-09-21] MEDS: diphenhydrAMINE 25 MG CAP PO (12:42)
[2017-09-21] MEDS: ACETAMINOPHEN TAB 650MG DOSE (2X325MG) PO (12:42)
[2017-09-21] MEDS: FUROSEMIDE 20 MG/2 ML VIAL (J1940) IV (14:47)
[2017-09-21 15:02] LABS: IMMEDIATE SPIN CROSSMATCH 1 2
== END 2017-09-21 17:30 | disposition home or self-care (01) ==
LOC: M INFU 09:30
DX: D64.9 Anemia, unspecified (principal); Z79.899 Other long term (current) drug therapy; Z85.828 Personal history of other malignant neoplasm of skin
CPT/HCPCS: 36430

== ENCOUNTER → 2017-10-30 | Outpatient (REF) | payer MEDICARE, OTHER ==
[2017-10-30 14:05] LABS: FERRITIN 77 NG/ML (26-388); IMMUNOGLOBULIN G 1650 MG/DL (681-1648); IMMUNOGLOBULIN M 91.5 MG/DL (40-230); IRON (FE) 101 UG/DL (65-175); PERCENT SATURATION 32.4 % (19.7-50.0); TOTAL IRON BINDING CAPACITY 312 UG/DL (250-450); TOTAL PROTEIN 7.5 GM/DL (6.4-8.2)
[2017-11-01 00:06] LABS: FREE KAPPA LIGHT CHAINS SERUM 342.4 mg/L (3.3-19.4); FREE LAMBDA LIGHT CHAINS SERUM 26.1 mg/L (5.7-26.3); KAPPA/LAMBDA RATIO SERUM 13.12 (0.26-1.65)
[2017-11-02 13:07] LABS: ALBUMIN 4.14 GM/DL (3.29-5.55); ALBUMIN % 55.2 % (55.8-66.1); ALPHA-1-GLOBULIN % 4.6 % (2.9-4.9); ALPHA-1-GLOBULINS 0.35 GM/DL (0.17-0.41); ALPHA-2-GLOBULINS 0.68 GM/DL (0.42-0.99); ALPHA-2-GLOBULINS % 9.1 % (7.1-11.8); BETA-1-GLOBULINS 0.39 GM/DL (0.28-0.60); BETA-1-GLOBULINS % 5.2 % (4.7-7.2); GAMMA GLOBULIN % 21.9 % (11.1-18.8); GAMMA GLOBULINS 1.64 GM/DL (0.65-1.58)
== END ==
LOC: M LAB REF 13:10
DX: D47.2 Monoclonal gammopathy (principal); D52.9 Folate deficiency anemia, unspecified; C18.9 Malignant neoplasm of colon, unspecified
CPT/HCPCS: 83550

== ENCOUNTER → 2017-12-30 | Outpatient (REF) | payer MEDICARE, OTHER ==
[2017-12-30 19:25] LABS: FERRITIN 72 NG/ML (26-388); IRON (FE) 111 UG/DL (65-175); PERCENT SATURATION 33.3 % (19.7-50.0); TOTAL IRON BINDING CAPACITY 333 UG/DL (250-450)
== END ==
LOC: M LAB REF 17:26
DX: D50.9 Iron deficiency anemia, unspecified (principal); Z85.038 Personal history of other malignant neoplasm of large intestine
CPT/HCPCS: 82378

== ENCOUNTER 2018-04-20 12:35 | Day surgery (SDC) | payer MEDICARE, OTHER ==
[2018-04-20] MEDS: NS 1,000 ML IV (14:05)
[2018-04-20] MEDS ORDERED: PROPOFOL 200 MG/20 ML VIAL As Ordered (15:10)
[2018-04-20] MEDS ORDERED: LIDOCAINE 2% INJ 100 MG/5 ML SDV (FOR ANES.) As Ordered ×2 (15:10)
== END 2018-04-20 15:54 | disposition home or self-care (01) ==
LOC: M OPP 12:35
DX: D12.5 Benign neoplasm of sigmoid colon (principal); K51.90 Ulcerative colitis, unspecified, without complications; Z85.048 Personal history of other malignant neoplasm of rectum, rectosigmoid junction, and anus; Z98.0 Intestinal bypass and anastomosis status
CPT/HCPCS: 45380

== ENCOUNTER → 2018-11-04 | Outpatient (CLI) | payer MEDICARE, OTHER ==
[~2018-11-04] MED LIST changes: -ACETAMINOPHEN TAB 650MG DOSE (2X325MG) PO SCH; +FERR150C PO; +FERR1TAB8 PO; +FERR325T82 PO; +IMOD2CAP PO; +LOPE-1 PO; +MOVE1TAB PO; +PRED20TA PO; -diphenhydrAMINE 25 MG CAP PO SCH
[2018-11-04 10:37] LABS: BASO # 0.1 10^3/uL (0.0-0.2); BASO % 0.9 % (0.0-1.0); EOS # 0.1 10^3/uL (0.0-0.50); EOS % 2.3 % (0.0-3.0); HEMATOCRIT 30.4 % (42.0-52.0); HEMOGLOBIN 9.1 g/dl (13.5-17.5); LYMPH # 0.7 10^3/uL (1.5-4.5); LYMPH % 13.9 % (24.0-44.0); MEAN CORPUSCULAR HEMOGLOBIN 28.3 pg (27.0-33.0); MEAN CORPUSCULAR HGB CONC 29.9 g/dl (32.0-36.5); MEAN CORPUSCULAR VOLUME 94.4 fl (80.0-96.0); MONO % 42.9 % (0.0-5.0); NEUTROPHILS # 1.9 10^3/uL (1.8-7.7); NEUTROPHILS % 35.1 % (36.0-66.0); PLATELET COUNT, AUTOMATED 166 10^3/uL (150-450); RED BLOOD COUNT 3.22 10^6/uL (4.30-6.10); WHITE BLOOD COUNT 5.3 10^3/uL (4.0-10.0)
[2018-11-04 10:57] LABS: BLOOD UREA NITROGEN 22 MG/DL (7-18); CALCIUM LEVEL 8.5 MG/DL (8.8-10.2); CARBON DIOXIDE LEVEL 27 MEQ/L (21-32); CHLORIDE LEVEL 104 MEQ/L (98-107); CREATININE FOR GFR 1.11 MG/DL (0.70-1.30); GLOMERULAR FILTRATION RATE > 60.0 (>35); GLUCOSE, FASTING 101 MG/DL (70-100); POTASSIUM SERUM 3.9 MEQ/L (3.5-5.1); SODIUM LEVEL 138 MEQ/L (136-145)
[2018-11-04 11:09] LABS: MONO # 2.3 10^3/uL (0.0-0.8)
== END ==
LOC: M LAB 09:53
PROVIDERS: ATTEND Internal Medicine Cardiovascular Disease
DX: R07.9 Chest pain, unspecified (principal); I35.0 Nonrheumatic aortic (valve) stenosis

== ENCOUNTER 2018-12-29 21:36 | Inpatient (IN) | payer MEDICARE, OTHER ==
[~2018-12-29] VITALS: Ht 177.8 cm; Wt 62.5 kg
[~2018-12-29 21:36] MED LIST changes: +ASPI81TA26 PO; +ATOR1TAB21 PO; +CLOP75TA2 PO; +FURO40TA2 PO; -LOPE-1 PO; +LOPE-39 PO; +METO1TAB32 PO; -OMEP40CA2 PO; +OMEP40CA97 PO
[2018-12-29] MEDS ORDERED: FUROSEMIDE 40 MG/4 ML VIAL (J1940) IV ONE (22:00)
[2018-12-29 22:02] LABS: HEMATOCRIT 37.4 % (42.0-52.0); HEMOGLOBIN 10.9 g/dl (13.5-17.5); MEAN CORPUSCULAR HEMOGLOBIN 26.9 pg (27.0-33.0); MEAN CORPUSCULAR HGB CONC 29.1 g/dl (32.0-36.5); MEAN CORPUSCULAR VOLUME 92.3 fl (80.0-96.0); PLATELET COUNT, AUTOMATED 203 10^3/uL (150-450); RED BLOOD COUNT 4.05 10^6/uL (4.30-6.10); WHITE BLOOD COUNT 18.2 10^3/uL (4.0-10.0)
[2018-12-29 22:05] LABS: ABG BASE EXCESS -2.3 (-2.0-2.0); ABG HCO3 24.8 MEQ/L (22.0-26.0); ABG O2 SATURATION 97.5 % (95.0-99.0); ABG PARTIAL PRESSURE CO2 53.1 mmHg (35.0-45.0); ABG STANDARD HCO3 22.6 MEQ/L (22.0-26.0); ABG TOTAL CO2 26.5 MEQ/L (23.0-31.0); ABG pH (ARTERIAL) 7.288 UNITS (7.350-7.450)
[2018-12-29 22:20] LABS: INR 1.21
[2018-12-29 22:21] LABS: PARTIAL THROMBOPLASTIN TIME 31.2 SECONDS (25.0-38.4)
[2018-12-29 22:37] LABS: BILIRUBIN,DIRECT 0.4 MG/DL (0.0-0.2); BILIRUBIN,TOTAL 0.8 MG/DL (0.2-1.0); CALCIUM LEVEL 7.9 MG/DL (8.8-10.2); CK-MB VALUE MASS 3.3 NG/ML (<3.6); CREATININE FOR GFR 1.42 MG/DL (0.70-1.30); GLOMERULAR FILTRATION RATE 50.1 (>35); MB/CK RELATIVE INDEX 4.02 (< OR =4); POTASSIUM SERUM 4.6 MEQ/L (3.5-5.1); THYROID STIMULATING HORMONE 2.68 uIU/ML (0.358-3.740); TOTAL PROTEIN 7.2 GM/DL (6.4-8.2); TROPONIN I 0.09 NG/ML (< 0.10)
[2018-12-29 22:44] LABS: ANISOCYTOSIS 1+; ATYPICAL LYMPH 7 % (0-5); BASOPHILS 1 % (0-4); EOSINOPHILS 1 % (0-5); LYMPHOCYTES 8 % (16-52); METAMYELOCYTES 1 % (0-0); MONOCYTES 13 % (0-8); NEUTROPHILS 66 % (35-75); OVALOCYTES 1+; PLATELET ESTIMATE NORMAL (NORMAL); POIKILOCYTOSIS 1+; POLYCHROMASIA 1+
--- NOTE | 2018-12-29 23:36 | HPEPDOC ---
[facility] Medical History & Physical Date of Admission Dec 29, 2018 Date of Service: Dec 30, 2018 Primary Care Physician: JOSE MANUEL HARRINGTON MD [facility] Attending Physician: SHANON WILLIAMSON MD History and Physical Time of service 12:10 AM CHIEF COMPLAINT: Shortness of breath. HISTORY OF PRESENT ILLNESS: Mr. Jain is an 80 year old male who presents with complaints of shortness of breath for 1-1/2 months that became acutely worse yesterday afternoon after receiving 3 units of PRBCs. He has been having dyspnea at rest, dyspnea with exertion, and reports having to sleep in a recliner for about the last month and a half. He does admit to feeling like he's gained weight around his stomach, having swelling of his feet and has a dry cough. He denies having any chest pain. Per discussion with the ED attending the patient was on BiPAP for short period of time, because he could not tolerate it, received Lasix and has voided several times; he is scheduled for TAVR on the of this month to manage severe aortic stenosis. REVIEW OF SYSTEMS: 12 point review of systems negative except as listed in HPI PAST MEDICAL/ SURGICAL HISTORY: 1. AV sclerosis, regurg and severe stenosis 2. Chronic Grade 1 Diastolic CHF / Pulm HTN 3. 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 Multiple skin cancers status post resection with no signs of any melanoma. 7. History of ulcerative colitis SOCIAL HISTORY: Quit smoking 43 years ago Poor chart review has a history of alcohol use FAMILY HISTORY: Denies family history of cancer, cardiac issues, or lung problems ALLERGIES: Please see below. HOME MEDICATIONS: Please see below. PHYSICAL EXAMINATION: VITAL SIGNS: Temperature 97.9, pulse 116, respiratory rate 20, blood pressure 1 09/64, pulse oximetry 99% on 15 L. GENERAL APPEARANCE: Slim built, well-developed, appears stated age INTEGUMENT: He has generalized pallor and several precancerous? Lesions on his face HEENT: Normocephalic, atraumatic, mucous membranes moist and pink, nasal cannulas are in place CARDIOVASCULAR: Regular rate and rhythm, aortic murmur, radial pulses are intact, he has bilateral pitting edema only affecting both feet LUNGS: He is using his accessory muscles, and has problems speaking full sentenc es, there expiratory crackles bilaterally ABDOMEN: Bowel sounds are resonant, the abdomen is soft and nontender on palpation MUSCULOSKELETAL: Range of motion is intact in all 4 extremities EXTREMITIES: Bilateral pedal edema affecting both feet at does not superiorly to the lower legs NEUROLOGICAL: Cranial nerves II-12 are grossly intact. Speech is not dysarthric PSYCHIATRIC: He is alert and oriented and able to understand and follow commands LABORATORY DATA: CBC is remarkable for WBC count of 18.2, hemoglobin of 10.9 with MCV of 92.3, metamyelocytes, and atypical lymphocytes. ABG shows a pH of 2.28, with a PCO2 58, and a PO2 of 105 Chemistries remarkable for a BUN of 32, creatinine 1.4 to this, GFR 50.1, glucose of 191, and proBNP greater than 19,000. IMAGING: Chest x-ray, the final read is pending, but there appears to be an effusion at the left and a hazy opacity at the right. MICROBIOLOGY: Please see below. ASSESSMENT: Mr. Jain is an 88-year-old male with a past medical history of MDS with multifactorial anemia, IgG kappa monoclonal gammopathy, severe aortic stenosis, history of colon cancer, and history of triple skin cancers who is admitted for management of acute hypercarbic respiratory failure secondary to flash pulmonary edema. PLAN: 1. Acute hypercarbic respiratory failure secondary 2/2 Flash Pulm Edema / Acute Diastolic CHF ABG shows a pH of 7.28 with PCO2 of 53 Echo done in 2017 showed grade 1 diastolic dysfunction, aortic valvulopathy, and pulmonary hypertension. The patient has been short of breath for several weeks now, but the acute worsening, may have been due to blood transfusions. Plan: admit to PCU/Supplemental O2 via nasal cannula Ventimask/will not order BiPAP because the patient didn't tolerate in the ED/ monitor Is and Os, daily weights, salt and fluid restriction/ continue with lasix 40 mg IV daily/ follow- up VBG in the morning 2.Severe Aortic Stenosis Chronic shortness of breath was likely due to severe stenosis Plan: TAVR planned for Jan 07 / c/w diuresis 3. SIRS / Sepsis secondary to Suspected right-sided pneumonia. There appeared to be a lesion on the chest x-ray on the right side Upper respiratory tract symptoms include dyspnea and cough. SIRS criteria include tachycardia, tachypnea, and leukocytosis/ he also has non- diabetic hyperglycemia (recent A1C was 5.0%) Qsofa score is 1 = not high risk CURB 65 score = 2 points = moderate risk He does have leukocytosis and hypercarbia Plan: Initiate sepsis protocol, lactic acid and blood cultures /will not give IV fluids because of fluid overload/follow-up final chest x-ray report/start empiric levofloxacin. 4. Azotemia / Mild Renal Insufficiency Plan: f/u BMP 5. MDS / Multifactorial Anemia f/u CBC / f/u w Onc on an out pt basis 6.Skin Lesions Plan: f/w w [employer] as scheduled on an out pt basis DVT prophylaxis with SCDs because of history of severe anemia. Disposition pending clinical course Laboratory Data CBC/BMP Laboratory Tests 12/29/18 21:45 Red Blood Count 4.05 L, Mean Corpuscular Volume 92.3, Mean Corpuscular Hemoglobin 26.9 L, Mean Corpuscular Hemoglobin Concent 29.1 L, Red Cell Distribution Width 17.0 H, Monocytes # (Auto) Microbiology Microbiology 12/29/18 Blood Culture, Received Pending 12/29/18 Blood Culture, Received Pending Home Medications Scheduled Aspirin (Aspirin EC) 81 Mg Tablet.dr, 81 MG PO DAILY Atorvastatin Calcium (Atorvastatin Calcium) 20 Mg Tablet, 20 MG PO QHS Clopidogrel Bisulfate (Clopidogrel) 75 Mg Tablet, 75 MG PO DAILY Furosemide (Furosemide) 20 Mg Tablet, 40 MG PO DAILY Glucosam/Chond/Hyalu/Cf Borate (Move Free Joint Health Tablet) 1 Tab Tab, 1 TAB PO DAILY Iron Polysaccharide Complex (Ferrex 150) 150 Mg Capsule, 300 MG PO DAILY Metoprolol Succinate (Metoprolol Succinate) 25 Mg Tab.er.24h, 25 MG PO DAILY Multivitamins (Thera M Plus Tablet) 1 Tab Tab, 1 TAB PO DAILY Allergies Coded Allergies: No Known Allergies (Unverified , 04/12/18) A-FIB/CHADSVASC A-FIB History Current/History of A-Fib/PAF?: No Current PO Anticoag Therapy: No SHANON WILLIAMSON MD Dec 29, 2018 23:36
[2018-12-30] VITALS (7 sets, daily range): BP systolic 99–122; BP diastolic 55–81
[2018-12-30] MEDS ORDERED: FERR150C PO (00:02)
[2018-12-30] MEDS ORDERED: FURO20TA2 PO (00:02)
[2018-12-30 01:48] LABS: CREATININE,RANDOM URINE 13.2 MG/DL
[2018-12-30 03:12] LABS: VENOUS PH 7.401 UNITS (7.330-7.430)
[2018-12-30 03:13] LABS: VENOUS BASE EXCESS 2.6 (-2.0-2.0); VENOUS HCO3 27.9 MEQ/L (23.0-27.0); VENOUS O2 SATURATION 90.6 % (60.0-80.0); VENOUS PARTIAL PRESSURE CO2 45.9 mmHg (38.0-50.0); VENOUS PARTIAL PRESSURE O2 60.3 mmHg (30.0-50.0); VENOUS STANDARD HCO3 26.7 MEQ/L; VENOUS TOTAL CO2 29.3 MEQ/L (24.0-28.0)
[2018-12-30 03:39] LABS: CALCIUM LEVEL 7.8 MG/DL (8.8-10.2); CREATININE FOR GFR 1.36 MG/DL (0.70-1.30); GLOMERULAR FILTRATION RATE 52.6 (>35); MAGNESIUM LEVEL 2.2 MG/DL (1.8-2.4); POTASSIUM SERUM 4.4 MEQ/L (3.5-5.1)
[2018-12-30 03:41] LABS: HEMATOCRIT 32.7 % (42.0-52.0); HEMOGLOBIN 9.6 g/dl (13.5-17.5); MEAN CORPUSCULAR HEMOGLOBIN 26.7 pg (27.0-33.0); MEAN CORPUSCULAR HGB CONC 29.4 g/dl (32.0-36.5); MEAN CORPUSCULAR VOLUME 91.1 fl (80.0-96.0); RED BLOOD COUNT 3.59 10^6/uL (4.30-6.10); WHITE BLOOD COUNT 9.7 10^3/uL (4.0-10.0)
[2018-12-30 03:42] LABS: PLATELET COUNT, AUTOMATED 148 10^3/uL (150-450)
[2018-12-30] MEDS: ATORVASTATIN 20 MG TAB PO SCH ×2 (03:45→20:56)
[2018-12-30] MEDS: LevoFLOXacin 250 MG TABLET PO SCH (05:34)
--- NOTE | 2018-12-30 08:30 | REP ---
Oral chest x-ray: Single view. History: Dyspnea and cough. Comparison study: September 03, 2016. Findings: There are bilateral pleural effusions right a little larger than left. The heart is enlarged. Pulmonary vasculature is congested and indistinct and there is diffuse interstitial edema. Fissural fluid is seen on the right. EKG monitoring electrodes and oxygen delivery tubing are seen. Impression: CHF pattern. Pulmonary edema and pleural effusions. Electronically Signed by Eddi Avila MD 12/30/2018 08:22 A
[2018-12-30] MEDS: CLOPIDOGREL 75 MG TAB PO SCH (08:46)
[2018-12-30] MEDS: ASPIRIN 81 MG ENTERIC TAB PO SCH (08:46)
[2018-12-30] MEDS ORDERED: FUROSEMIDE 40 MG/4 ML VIAL (J1940) IV SCH ×2 (09:00)
[2018-12-30] MEDS: MULTIVITAMINS/MINERALS THERAP 1 TAB PO SCH (09:00)
[2018-12-30] MEDS: METOPROLOL SUCC *XL* 25MG TAB (TopROL *XL*) PO SCH (09:00)
[2018-12-30] MEDS ORDERED: ENOXAPARIN 40 MG/0.4 ML SYRINGE (J1650) SC SCH (09:00)
--- NOTE | 2018-12-30 14:03 | IPNPDOC ---
Subjective Date Seen The patient was seen on 12/30/18. Subjective Chief Complaint/HPI Patient feels much better. Denies any SOB . Denies any chest pain. No fever or chills, no cough or phlegm. No nausea or vomiting or diarrhea. Objective Physical Examination General Exam: Positive: Alert, Cooperative, No Acute Distress Eye Exam: Positive: PERRLA, Conjunctiva & lids normal, EOMI; Negative: Sclera icteric ENT Exam: Positive: Atraumatic, Mucous membr. moist/pink, Pharynx Normal Neck Exam: Positive: Supple; Negative: JVD, thyromegaly Chest Exam: Positive: Diminished, Other (crackles at the bases); Negative: Rales, Rhonchi, Wheezing Heart Exam: Positive: Rate Normal, Regular Rhythm, Normal S1, Normal S2, Murmurs (systolic); Negative: Rubs Telemetry: Positive: No significant arrhythmia Abdomen Exam: Positive: Normal bowel sounds, Soft; Negative: Tenderness, Hepatospenomegaly Extremity Exam: Positive: Edema (right > left); Negative: Clubbing, Cyanosis Skin Exam: Positive: Nl turgor and temperature; Negative: Rash, Breakdown Assessment /Plan Assessment Acute respiratory failure with hypoxia and hypercarbia due to diastolic chf exacerbation with acute pulmonary edema continue lasix Monitor daily I/O and weights. Oxygen supplementation, trying weaning off oxygen as tolerated. Acute pulmonary edema secondary to transfusion associated circulatory overload. after receiving 3 units of blood continue IV lasix oxygen supplementation. Wean oxygen as tolerated. Possible pneumonia continue levofloxacin. 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 Multiple skin cancers status post resection with no signs of any melanoma. CKD stage 3 creatinine at baseline will continue to monitor. H/o ulcerative colitis. no issues at present. Plan/VTE VTE Prophylaxis Ordered?: Yes VS, I&O, 24H, Fishbone Vital Signs/I&O Vital Signs Date Time Temp Pulse Resp B/P (MAP) Pulse Ox O2 Delivery O2 Flow Rate FiO2 12/30/18 04:00 2.0 12/30/18 04:00 98.0 101 19 121/66 (84) 99 12/30/18 00:06 Nasal Cannula I&O- Last 24 Hours up to 6 AM 12/30/18 06:00 Intake Total 60 ml Output Total 900 ml Balance -840 ml Laboratory Data 24H LABS Laboratory Tests 2 12/29/18 21:45: Immature Granulocyte % (Auto) , White Blood Count 18.2H, Red Blood Count 4.05L, Hemoglobin 10.9L, Hematocrit 37.4L, Mean Corpuscular Volume 92.3, Mean Corpuscular Hemoglobin 26.9L, Mean Corpuscular Hemoglobin Concent 29.1L, Red Cell Distribution Width 17.0H, Platelet Count 203, Monocytes # (Auto) , Nucleate d Red Blood Cells % (auto) 0.2H, Neutrophils 66, Band Neutrophils 3, Lymphocytes (Manual) 8L, Monocytes (Manual) 13H, Eosinophils (Manual) 1, Basophils (Manual) 1, Metamyelocytes 1H, Atypical Lymphocytes 7H, Platelet Estimate NORMAL, Polychromasia 1+, Poikilocytosis 1+, Anisocytosis 1+, Ovalocytes 1+, Prothrombin Time 15.0H, Prothromb Time International Ratio 1.21, Activated Partial Thromboplast Time 31.2, Anion Gap 3L, Glomerular Filtration Rate 50.1, Estimated Mean Plasma Glucose 97, Hemoglobin A1c 5.0, Lactic Acid Level 1.2, Calcium Level 7.9L, Aspartate Amino Transf (AST/SGOT) 31, Alanine Aminotransferase (ALT/SGPT) 24, Alkaline Phosphatase 106, Total Bilirubin 0.8, Direct Bilirubin 0.4H, Total Creatine Kinase 82, Creatine Kinase MB 3.3, Creatine Kinase MB Relative Index 4.02H, Troponin I 0.09, UU-Muk-O-Type Natriuretic Peptide 12553L, Total Protein 7.2, Albumin 3.0L, Albumin/Globulin Ratio 0.71L, Thyroid Stimulating Hormone (TSH) 2.680 12/29/18 21:56: Blood Gas Bicarbonate Standard 22.6, Arterial Blood pH 7.288L, Arterial Blood Partial Pressure CO2 53.1H, Arterial Blood Partial Pressure O2 105.0H, Arterial Blood Total CO2 26.5, Arterial Blood HCO3 24.8, Arterial Blood Base Excess - 2.3L, Arterial Blood Oxygen Saturation 97.5 12/30/18 01:20: Urine Random Creatinine 13.2, Urine Random Sodium 128 12/30/18 02:58: Anion Gap 9, Glomerular Filtration Rate 52.6, Calcium Level 7.8L, Blood Gas Bicarbonate Standard 26.7, Venous Blood pH 7.401, Venous Blood Partial Pressure CO2 45.9, Venous Blood Partial Pressure O2 60.3H, Venous Blood Total Carbon Dioxide 29.3H, Venous Blood HCO3 27.9H, Venous Blood Oxygen Saturation 90.6H, Venous Blood Base Excess 2.6H, Blood Urea Nitrogen 31H, Creatinine 1.36H, Sodium Level 141, Potassium Level 4.4, Chloride Level 104, Carbon Dioxide Level 28, Magnesium Level 2.2 CBC/BMP Laboratory Tests 12/29/18 21:45 Red Blood Count 4.05 L, Mean Corpuscular Volume 92.3, Mean Corpuscular Hemoglobin 26.9 L, Mean Corpuscular Hemoglobin Concent 29.1 L, Red Cell Distribution Width 17.0 H, Monocytes # (Auto) 12/30/18 02:58 Red Blood Count 3.59 L, Mean Corpuscular Volume 91.1, Mean Corpuscular Hemoglobin 26.7 L, Mean Corpuscular Hemoglobin Concent 29.4 L, Red Cell Distribution Width 16.6 H, Calcium Level 7.8 L Microbiology Microbiology 12/29/18 Blood Culture, Received Pending 12/29/18 Blood Culture, Received Pending CIELO DOHERTY MD Dec 30, 2018 07:48
[2018-12-30] MEDS: FUROSEMIDE 20 MG/2 ML VIAL (J1940) IV SCH (17:00)
[2018-12-31 02:00] VITALS: BP 104/75
[2018-12-31] MEDS: LevoFLOXacin 250 MG TABLET PO SCH (05:44)
--- NOTE | 2018-12-31 05:53 | ECGEPIP ---
[facility] - ED Test Date: 2018-12-29 Pat Name: CHLOE TORRES Department: Room: [place] [address] Gender: Male Rn Care Transition: catia : 1930 Requested By: Moshe Petty Order Number: [id number] Reading MD: Moshe Moses Measurements Intervals [place] Rate: 124 P: 1 IA: 175 QRS: 8 QRSD: 104 T: 107 QT: 311 QTc: 447 Interpretive Statements SINUS TACHYCARDIA ANTEROSEPTAL MYOCARDIAL INFARCTION, OF INDETERMINATE AGE LVH WITH STRAIN PATTERN RATE CHANGE COMPARED TO 09/03/16 Electronically Signed on 12-31-2018 5:53:33 EDT by Moshe Moses
[2018-12-31 06:00] VITALS: BP 104/75
[2018-12-31 06:13] LABS: BASO % 0.4 % (0.0-1.0); EOS # 0.1 10^3/uL (0.0-0.50); EOS % 1.3 % (0.0-3.0); HEMATOCRIT 31.6 % (42.0-52.0); HEMOGLOBIN 9.3 g/dl (13.5-17.5); LYMPH # 0.9 10^3/uL (1.5-4.5); MEAN CORPUSCULAR HEMOGLOBIN 26.8 pg (27.0-33.0); MEAN CORPUSCULAR HGB CONC 29.4 g/dl (32.0-36.5); MEAN CORPUSCULAR VOLUME 91.1 fl (80.0-96.0); MONO # 1.4 10^3/uL (0.0-0.8); MONO % 20.2 % (0.0-5.0); NEUTROPHILS # 4.3 10^3/uL (1.8-7.7); NEUTROPHILS % 63.1 % (36.0-66.0); PLATELET COUNT, AUTOMATED 152 10^3/uL (150-450); RED BLOOD COUNT 3.47 10^6/uL (4.30-6.10); WHITE BLOOD COUNT 6.8 10^3/uL (4.0-10.0)
[2018-12-31 06:38] LABS: CALCIUM LEVEL 8.2 MG/DL (8.8-10.2); CREATININE FOR GFR 1.3 MG/DL (0.70-1.30); GLOMERULAR FILTRATION RATE 55.5 (>35); MAGNESIUM LEVEL 2.2 MG/DL (1.8-2.4); POTASSIUM SERUM 3.5 MEQ/L (3.5-5.1)
[2018-12-31 08:48] VITALS: BP 109/59
[2018-12-31] MEDS: METOPROLOL SUCC *XL* 25MG TAB (TopROL *XL*) PO SCH (08:48)
[2018-12-31] MEDS: MULTIVITAMINS/MINERALS THERAP 1 TAB PO SCH (08:48)
[2018-12-31] MEDS: CLOPIDOGREL 75 MG TAB PO SCH (08:48)
[2018-12-31] MEDS: ASPIRIN 81 MG ENTERIC TAB PO SCH (08:48)
[2018-12-31] MEDS: FUROSEMIDE 20 MG/2 ML VIAL (J1940) IV SCH (09:20)
[2018-12-31 10:58] VITALS: BP 124/65
--- NOTE | 2018-12-31 12:03 | IPNPDOC ---
Subjective Date Seen The patient was seen on 12/31/18. Subjective Chief Complaint/HPI Says SOB has improved. though still on oxygen will try to wean off oxygen. No fever or chills, no chest pain or palpitation. no abdominal pain , nausea or vomiting or diarrhea. Objective Physical Examination General Exam: Positive: Alert, Cooperative, No Acute Distress Eye Exam: Positive: PERRLA, Conjunctiva & lids normal, EOMI; Negative: Sclera icteric ENT Exam: Positive: Atraumatic, Mucous membr. moist/pink, Pharynx Normal Neck Exam: Positive: Supple; Negative: JVD, thyromegaly Chest Exam: Positive: Diminished, Other (crackles at the bases); Negative: Rales, Rhonchi, Wheezing Heart Exam: Positive: Rate Normal, Regular Rhythm, Normal S1, Normal S2, Murmurs (systolic); Negative: Rubs Telemetry: Positive: No significant arrhythmia Abdomen Exam: Positive: Normal bowel sounds, Soft; Negative: Tenderness, Hepatospenomegaly Extremity Exam: Positive: Edema (right > left); Negative: Clubbing, Cyanosis Skin Exam: Positive: Nl turgor and temperature; Negative: Rash, Breakdown Assessment /Plan Assessment Acute respiratory failure with hypoxia and hypercarbia due to diastolic chf exacerbation with acute pulmonary edema continue lasix Monitor daily I/O and weights. Oxygen supplementation, trying weaning off oxygen as tolerated. Acute pulmonary edema secondary to transfusion associated circulatory overload. after receiving 3 units of blood continue IV lasix oxygen supplementation. Wean oxygen as tolerated. Possible pneumonia continue levofloxacin. 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 Multiple skin cancers status post resection with no signs of any melanoma. CKD stage 3 creatinine at baseline will continue to monitor. H/o ulcerative colitis. no issues at present. Plan/VTE VTE Prophylaxis Ordered?: Yes VS, I&O, 24H, Fishbone Vital Signs/I&O Vital Signs Date Time Temp Pulse Resp B/P (MAP) Pulse Ox O2 Delivery O2 Flow Rate FiO2 12/31/18 08:48 65 109/59 12/31/18 06:00 98.6 17 92 2.0 12/30/18 00:06 Nasal Cannula I&O- Last 24 Hours up to 6 AM 12/31/18 06:00 Intake Total 330 ml Output Total 850 ml Balance -520 ml Laboratory Data 24H LABS Laboratory Tests 2 12/31/18 05:49: Immature Granulocyte % (Auto) 2.0, White Blood Count 6.8, Red Blood Count 3.47L, Hemoglobin 9.3L, Hematocrit 31.6L, Mean Corpuscular Volume 91.1, Mean Corpuscular Hemoglobin 26.8L, Mean Corpuscular Hemoglobin Concent 29.4L, Red Cell Distribution Width 16.7H, Platelet Count 152, Neutrophils (%) (Auto) 63.1, Lymphocytes (%) (Auto) 13.0L, Monocytes (%) (Auto) 20.2H, Eosinophils (%) (Auto) 1.3, Basophils (%) (Auto) 0.4, Neutrophils # (Auto) 4.3, Lymphocytes # (Auto) 0.9L, Monocytes # (Auto) 1.4H, Eosinophils # (Auto) 0.1, Basophils # (Auto) 0.0, Nucleated Red Blood Cells % (auto) 0.0, Anion Gap 5L, Glomerular Filtration Rate 55.5, Blood Urea Nitrogen 34H, Creatinine 1.30, Sodium Level 139, Potassium Level 3.5#, Chloride Level 104, Carbon Dioxide Level 30, Calcium Level 8.2L, Magnesium Level 2.2, RY-Xhk-[id number]-Type Natriuretic Peptide [id number] CBC/BMP Laboratory Tests 12/31/18 05:49 Red Blood Count 3.47 L, Mean Corpuscular Volume 91.1, Mean Corpuscular Hemoglobin 26.8 L, Mean Corpuscular Hemoglobin Concent 29.4 L, Red Cell Distribution Width 16.7 H, Neutrophils (%) (Auto) 63.1, Lymphocytes (%) (Auto) 13.0 L, Monocytes (%) (Auto) 20.2 H, Eosinophils (%) (Auto) 1.3, Basophils (%) (Auto) 0.4, Neutrophils # (Auto) 4.3, Lymphocytes # (Auto) 0.9 L, Monocytes # (Auto) 1.4 H, Eosinophils # (Auto) 0.1, Basophils # (Auto) 0.0, Calcium Level 8.2 L Microbiology Microbiology 12/29/18 Blood Culture - Preliminary, Resulted No growth after 24 hours . All specim... 12/29/18 Blood Culture - Preliminary, Resulted No growth after 24 hours . All specim... CIELO DOHERTY MD Dec 31, 2018 12:03
[2018-12-31] MEDS ORDERED: FURO20TA2 PO (15:53)
[2018-12-31] MEDS ORDERED: LEVO250T12 PO (15:53)
--- NOTE | 2018-12-31 18:09 | DS.PDOC ---
Discharge Summary General Date of Admission Dec 29, 2018 at 23:43 Date of Discharge 12/31/18 Discharge Summary PROCEDURES PERFORMED DURING STAY: [None]. 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 Multiple skin cancers status post resection with no signs of any melanoma. COMPLICATIONS/CHIEF COMPLAINT: Acute Diastolic Chf;Prashant;Flash Pulmonary Edema. HISTORY OF PRESENT ILLNESS: Please see history and physical HOSPITAL COURSE: Mr. Jain is an 80 year old male who presents with complaints of shortness of breath for 1-1/2 months that became acutely worse yesterday afternoon after receiving 3 units of PRBCs. He has been having dyspnea at rest, dyspnea with exertion, and reports having to sleep in a recliner for about the last month and a half. He does admit to feeling like he's gained weight around his stomach, having swelling of his feet and has a dry cough. He denies having any chest pain. The patient was on BiPAP for short period of time,but he could n ot tolerate it, received Lasix and has voided several times; he is scheduled for TAVR on the of this month to manage severe aortic stenosis. He felt much better with diuresis. HE was admitted for acute diastolic CHF and acute pulmonary edema secondary to transfusion associated circulatory overload causing acute respiratory failure with hypoxia. Acute respiratory failure with hypoxia and hypercarbia due to diastolic chf exacerbation with acute pulmonary edema continue lasix Monitor daily I/O and weights. Oxygen supplementation, trying weaning off oxygen as tolerated. Acute pulmonary edema secondary to transfusion associated circulatory overload. after receiving 3 units of blood continue IV lasix oxygen supplementation. Wean oxygen as tolerated. Possible pneumonia continue levofloxacin. 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 Multiple skin cancers status post resection with no signs of any melanoma. CKD stage 3 creatinine at baseline will continue to monitor. H/o ulcerative colitis. no issues at present. DISCHARGE MEDICATIONS: Please see below. ALLERGIES: Please see below. PHYSICAL EXAMINATION ON DISCHARGE: VITAL SIGNS: Please see below. General Exam: Positive: Alert, Cooperative, No Acute Distress Eye Exam: Positive: PERRLA, Conjunctiva & lids normal, EOMI; Negative: Sclera icteric ENT Exam: Positive: Atraumatic, Mucous membr. moist/pink, Pharynx Normal Neck Exam: Positive: Supple; Negative: JVD, thyromegaly Chest Exam: Positive: Diminished, Other (crackles at the bases); Negative: Rales, Rhonchi, Wheezing Heart Exam: Positive: Rate Normal, Regular Rhythm, Normal S1, Normal S2, Mu rmurs (systolic); Negative: Rubs Telemetry: Positive: No significant arrhythmia Abdomen Exam: Positive: Normal bowel sounds, Soft; Negative: Tenderness, Hepatospenomegaly Extremity Exam: Positive: Edema (right > left); Negative: Clubbing, Cyanosis Skin Exam: Positive: Nl turgor and temperature; Negative: Rash, Breakdown LABORATORY DATA: Please see below. ACTIVITY: [As tolerated]. DIET: 2 gm sodium, fluid restriction 1.5 litrs DISPOSITION: 01 Home, Self-Care. DISCHARGE INSTRUCTIONS: follow up with PMD in 1 week DISCHARGE CONDITION: [Stable]. TIME SPENT ON DISCHARGE: 35 minutes. Vital Signs/I&Os Vital Signs Date Time Temp Pulse Resp B/P (MAP) Pulse Ox O2 Delivery O2 Flow Rate FiO2 12/31/18 10:58 97.4 85 18 124/65 (84) 98 12/31/18 06:00 2.0 12/30/18 00:06 Nasal Cannula I&O- Last 24 Hours up to 6 AM 12/31/18 06:00 Intake Total 330 ml Output Total 850 ml Balance -520 ml Laboratory Data Labs 24H Laboratory Tests 2 12/31/18 05:49: Immature Granulocyte % (Auto) 2.0, White Blood Count 6.8, Red Blood Count 3.47L, Hemoglobin 9.3L, Hematocrit 31.6L, Mean Corpuscular Volume 91.1, Mean Corpuscular Hemoglobin 26.8L, Mean Corpuscular Hemoglobin Concent 29.4L, Red Cell Distribution Width 16.7H, Platelet Count 152, Neutrophils (%) (Auto) 63.1, Lymphocytes (%) (Auto) 13.0L, Monocytes (%) (Auto) 20.2H, Eosinophils (%) (Auto) 1.3, Basophils (%) (Auto) 0.4, Neutrophils # (Auto) 4.3, Lymphocytes # (Auto) 0.9L, Monocytes # (Auto) 1.4H, Eosinophils # (Auto) 0.1, Basophils # (Auto) 0.0, Nucleated Red Blood Cells % (auto) 0.0, Anion Gap 5L, Glomerular Filtration Rate 55.5, Blood Urea Nitrogen 34H, Creatinine 1.30, Sodium Level 139, Potassium Level 3.5#, Chloride Level 104, Carbon Dioxide Level 30, Calcium Level 8.2L, Magnesium Level 2.2, GV-[id number]-I-Type Natriuretic Peptide [id number] 12/31/18 15:45: Urine Color YELLOW, Urine Appearance CLEAR, Urine pH 5.0, Urine Specific [place] 1.005, Urine Protein NEGATIVE, Urine Glucose (UA) NEGATIVE, Urine Ketones NEGATIVE, Urine Blood NEGATIVE, Urine Nitrite NEGATIVE, Urine Bilirubin NEGATIVE, Urine Urobilinogen 0.2, Urine Leukocyte Esterase NEGATIVE, Urine WBC (Auto) 0, Urine RBC (Auto) 3, Urine Hyaline Casts (Auto) 0, Urine Bacteria (Auto) NEGATIVE, Urine Squamous Epithelial Cells 0, Urine Mucus (Auto) SMALL, Urine Sperm (Auto) CBC/BMP Laboratory Tests 12/31/18 05:49 Red Blood Count 3.47 L, Mean Corpuscular Volume 91.1, Mean Corpuscular Hemoglobin 26.8 L, Mean Corpuscular Hemoglobin Concent 29.4 L, Red Cell Distribution Width 16.7 H, Neutrophils (%) (Auto) 63.1, Lymphocytes (%) (Auto) 13.0 L, Monocytes (%) (Auto) 20.2 H, Eosinophils (%) (Auto) 1.3, Basophils (%) (Auto) 0.4, Neutrophils # (Auto) 4.3, Lymphocytes # (Auto) 0.9 L, Monocytes # (Auto) 1.4 H, Eosinophils # (Auto) 0.1, Basophils # (Auto) 0.0, Calcium Level 8.2 L Microbiology Microbiology 12/29/18 Blood Culture - Preliminary, Resulted No growth after 24 hours . All specim... 12/29/18 Blood Culture - Preliminary, Resulted No growth after 24 hours . All specim... Discharge Medications Scheduled Aspirin (Aspirin EC) 81 Mg Tablet.dr, 81 MG PO DAILY, (Reported) Atorvastatin Calcium (Atorvastatin Calcium) 20 Mg Tablet, 20 MG PO QHS, (Reported) Clopidogrel Bisulfate (Clopidogrel) 75 Mg Tablet, 75 MG PO DAILY, (Reported) Furosemide (Furosemide) 20 Mg Tablet, 40 MG PO ASDIRECTED 2 tabs at 8 am and 1 tab at 4 pm Glucosam/Chond/Hyalu/Cf Borate (Move Free Joint Health Tablet) 1 Tab Tab, 1 TAB PO DAILY, (Reported) Iron Polysaccharide Complex (Ferrex 150) 150 Mg Capsule, 300 MG PO DAILY, (Reported) Levofloxacin (Levofloxacin) 250 Mg Tablet, 250 MG PO DAILY Metoprolol Succinate (Metoprolol Succinate) 25 Mg Tab.er.24h, 25 MG PO DAILY, (Reported) Multivitamins (Thera M Plus Tablet) 1 Tab Tab, 1 TAB PO DAILY, (Reported) Allergies Coded Allergies: No Known Allergies (Unverified , 04/12/18) CIELO DOHERTY MD Dec 31, 2018 18:09
== END 2018-12-31 16:35 | disposition home or self-care (01) | DRG 640 ==
LOC: M ED 21:36 → EDBD 21:36 → M ED INP 23:43 → M ICU 12-30 00:50 → M MSPAV 12-30 15:08
PROVIDERS: ADMIT Internal Medicine; ATTEND Internal Medicine Nephrology
DX: E87.71 Transfusion associated circulatory overload (principal); I50.33 Acute on chronic diastolic (congestive) heart failure; J96.02 Acute respiratory failure with hypercapnia; J81.0 Acute pulmonary edema; J96.01 Acute respiratory failure with hypoxia; J18.9 Pneumonia, unspecified organism; I13.0 Hypertensive heart and chronic kidney disease with heart failure and stage 1 through stage 4 chronic kidney disease, or unspecified chronic kidney disease; N18.3 Chronic kidney disease, stage 3 (moderate); I35.0 Nonrheumatic aortic (valve) stenosis; D50.9 Iron deficiency anemia, unspecified; Z85.038 Personal history of other malignant neoplasm of large intestine; Z85.828 Personal history of other malignant neoplasm of skin; Z79.899 Other long term (current) drug therapy; Z79.82 Long term (current) use of aspirin

== ENCOUNTER 2019-01-12 12:11 | Day surgery (SDC) | payer MEDICARE, OTHER ==
[~2019-01-12] VITALS: Ht 172.7 cm; Wt 56.8 kg
[~2019-01-12 12:11] MED LIST changes: +FURO20TA2 PO; +LEVO250T12 PO; +OMEP40CA2 PO; -OMEP40CA97 PO
[2019-01-12] MEDS ORDERED: PANT40TA3 PO (12:53)
[2019-01-12] MEDS ORDERED: METO1TAB7 PO (12:53)
[2019-01-12 13:18] LABS: BASO # 0.1 10^3/uL (0.0-0.2); BASO % 0.4 % (0.0-1.0); EOS # 0.1 10^3/uL (0.0-0.50); EOS % 0.3 % (0.0-3.0); HEMATOCRIT 31.1 % (42.0-52.0); HEMOGLOBIN 9.8 g/dl (13.5-17.5); LYMPH # 0.6 10^3/uL (1.5-4.5); LYMPH % 3.2 % (24.0-44.0); MEAN CORPUSCULAR HEMOGLOBIN 29.2 pg (27.0-33.0); MEAN CORPUSCULAR HGB CONC 31.5 g/dl (32.0-36.5); MEAN CORPUSCULAR VOLUME 92.6 fl (80.0-96.0); MONO % 21.3 % (0.0-5.0); NEUTROPHILS # 13.4 10^3/uL (1.8-7.7); NEUTROPHILS % 73.3 % (36.0-66.0); PLATELET COUNT, AUTOMATED 157 10^3/uL (150-450); RED BLOOD COUNT 3.36 10^6/uL (4.30-6.10); WHITE BLOOD COUNT 18.3 10^3/uL (4.0-10.0)
[2019-01-12] MEDS ORDERED: GLUCAGON FOR INJ 1 MG VIAL (J1610) IV STA (13:27)
[2019-01-12 13:37] LABS: INR 1.23; PARTIAL THROMBOPLASTIN TIME 37.1 SECONDS (25.0-38.4); PROTHROMBIN TIME 15.2 SECONDS (11.8-14.0)
[2019-01-12 13:41] LABS: MONO # 3.9 10^3/uL (0.0-0.8)
[2019-01-12 13:50] LABS: ALT/SGPT 18 U/L (12-78); BILIRUBIN,DIRECT 0.3 MG/DL (0.0-0.2); BILIRUBIN,TOTAL 0.9 MG/DL (0.2-1.0); BLOOD UREA NITROGEN 22 MG/DL (7-18); CALCIUM LEVEL 9.1 MG/DL (8.8-10.2); CARBON DIOXIDE LEVEL 27 MEQ/L (21-32); CHLORIDE LEVEL 107 MEQ/L (98-107); CK-MB VALUE MASS < 1.0 NG/ML (<3.6); CPK CREATINE PHOSPHOKINASE 46 U/L (39-308); CREATININE FOR GFR 1.09 MG/DL (0.70-1.30); GLOMERULAR FILTRATION RATE > 60.0 (>35); GLUCOSE, FASTING 94 MG/DL (70-100); MB/CK RELATIVE INDEX 2.17 (< OR =4); POTASSIUM SERUM 3.7 MEQ/L (3.5-5.1); SODIUM LEVEL 141 MEQ/L (136-145); TOTAL PROTEIN 7.3 GM/DL (6.4-8.2); TROPONIN I 0.24 NG/ML (< 0.10)
[2019-01-12] MEDS ORDERED: PROPOFOL 200 MG/20 ML VIAL As Ordered ONE (18:46)
[2019-01-12] MEDS ORDERED: fentaNYL 100 MCG/2 ML INJECTION (J3010) As Ordered ONE (18:46)
[2019-01-12] MEDS ORDERED: LIDOCAINE 2% INJ 100 MG/5 ML SDV (FOR ANES.) As Ordered ONE (18:46)
[2019-01-12] MEDS ORDERED: SUCCINYLCHOLINE 100 MG/5 ML SYRINGE (J0330) As Ordered ONE (18:46)
[2019-01-12] MEDS ORDERED: dexameTHASONE 4 MG/ML 1ML VIAL (J1100) As Ordered ONE (18:47)
[2019-01-12] MEDS ORDERED: ONDANSETRON 4MG/2ML VIAL (J2405) As Ordered ONE (18:47)
[2019-01-12] MEDS ORDERED: ONDANSETRON 4MG/2ML VIAL (J2405) IV PRN (20:15)
[2019-01-12] MEDS ORDERED: LR 1,000 ML IV SCH ×2 (20:15→20:30)
[2019-01-12] MEDS ORDERED: fentaNYL 100 MCG/2 ML INJECTION (J3010) IV PRN (20:15)
[2019-01-12 20:40] VITALS: BP 135/61
--- NOTE | 2019-01-13 20:38 | ECGEPIP ---
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
== END 2019-01-12 20:48 | disposition home or self-care (01) ==
LOC: M ED 12:11 → EDBD 12:11 → M SDC 16:20
PROVIDERS: ATTEND Surgery
DX: T18.128A Food in esophagus causing other injury, initial encounter (principal); I50.9 Heart failure, unspecified; D47.2 Monoclonal gammopathy; D46.9 Myelodysplastic syndrome, unspecified; Z79.82 Long term (current) use of aspirin; Z79.899 Other long term (current) drug therapy; Z95.2 Presence of prosthetic heart valve; Y92.9 Unspecified place or not applicable
CPT/HCPCS: 43247; 80048; 80076; 82550; 82553; 84484; 85025; 85610; 85730; 93005; 93041; 96374; 99285; J0330; J1100; J1610; J2405; J3010

== ENCOUNTER → 2019-03-24 | Outpatient (CLI) | payer MEDICARE, OTHER ==
[2019-03-24] VITALS (7 sets, daily range): BP systolic 121–153; BP diastolic 60–67
[~2019-03-24] VITALS: Ht 175.3 cm; Wt 61.2 kg
[~2019-03-24] MED LIST changes: +ACETAMINOPHEN TAB 650MG DOSE (2X325MG) PO SCH; +METO1TAB7 PO; -OMEP40CA2 PO; +OMEP40CA97 PO; +PANT40TA3 PO; +diphenhydrAMINE 25 MG CAP PO SCH
== END ==
LOC: M INFU 12:28
PROVIDERS: ATTEND Internal Medicine Hematology & Oncology
DX: D64.9 Anemia, unspecified (principal); D47.2 Monoclonal gammopathy; C18.9 Malignant neoplasm of colon, unspecified
CPT/HCPCS: 36430; P9016

== ENCOUNTER 2019-06-09 10:34 | Outpatient (CLI) | payer MEDICARE, OTHER ==
[~2019-06-09] VITALS: Ht 175.3 cm; Wt 61.2 kg
[2019-06-09] VITALS (9 sets, daily range): BP systolic 139–159; BP diastolic 61–71
[~2019-06-09 10:34] MED LIST changes: -ACETAMINOPHEN TAB 650MG DOSE (2X325MG) PO SCH
[2019-06-09] MEDS ORDERED: ACETAMINOPHEN 325 MG TAB PO ONE (12:00)
[2019-07-11] MEDS ORDERED: REVL5CAP2 PO (10:14)
[2019-07-11] MEDS ORDERED: DECA4TAB PO (10:16)
[2019-07-12] MEDS ORDERED: PANT40TA3 PO (11:42)
[2019-07-12] MEDS ORDERED: TOPR50TA PO (11:42)
[2019-07-19] MEDS ORDERED: DECA4TAB PO (13:00)
[2019-07-25] MEDS ORDERED: [UNRECOGNIZED DRUG - OTHER] (15:19)
[2019-08-01] MEDS ORDERED: [UNRECOGNIZED DRUG - CODE] PO (15:08)
== END 2019-06-09 17:00 | disposition home or self-care (01) ==
LOC: M INFU 10:34
PROVIDERS: ATTEND Internal Medicine Hematology
DX: D46.9 Myelodysplastic syndrome, unspecified (principal); D47.2 Monoclonal gammopathy
CPT/HCPCS: 36415; 36430; 85027; 86850; 86900; 86901; 86920; G0463; P9016

== ENCOUNTER → 2019-06-15 | Outpatient (REF) | payer MEDICARE, OTHER ==
[~2019-06-15] MED LIST changes: -diphenhydrAMINE 25 MG CAP PO SCH
== END ==
LOC: M LAB REF 09:06
PROVIDERS: ATTEND Dermatology
DX: C44.310 Basal cell carcinoma of skin of unspecified parts of face (principal); C44.41 Basal cell carcinoma of skin of scalp and neck; L57.0 Actinic keratosis

== ENCOUNTER 2019-07-11 16:19 | Outpatient (CLI) | payer MEDICARE, OTHER ==
[~2019-07-11] VITALS: Ht 175.3 cm; Wt 60.0 kg
[2019-07-11 16:15] VITALS: BP 177/73
[~2019-07-11 16:19] MED LIST changes: +DECA4TAB PO; +REVL5CAP2 PO
[2019-07-11 17:11] VITALS: BP 146/67
[2019-07-11 18:05] VITALS: BP 168/77
[2019-07-11 18:37] VITALS: BP 168/73
[2019-07-12] MEDS ORDERED: TOPR50TA PO (11:42)
[2019-07-12] MEDS ORDERED: PANT40TA3 PO (11:42)
== END 2019-07-11 18:40 | disposition home or self-care (01) ==
LOC: M INFU 16:19
PROVIDERS: ATTEND Internal Medicine Hematology
DX: C90.00 Multiple myeloma not having achieved remission (principal)
CPT/HCPCS: 36415; 36430; 80053; 85027; 85610; 85730; 86850; 86900; 86901; 86920; G0463; P9016

== ENCOUNTER → 2019-07-12 | Outpatient (CLI) | payer MEDICARE, OTHER ==
[~2019-07-12] MED LIST changes: +TOPR50TA PO
--- NOTE | 2019-07-13 10:57 | RADONC ---
RADIATION ONCOLOGY CONSULTATION NOTE DATE: 07/12/2019 CHART NUMBER: [id number] DIAGNOSIS: Basal cell carcinoma of right pentecostal. ECOG PERFORMANCE STATUS: 1 CONSULTATION NOTE: Mr. Jain is a very pleasant 89-year-old white male with the diagnosis of what appears to be a basal cell carcinoma involving his right pentecostal who is presenting to us status post shave biopsy for consideration of definitive external beam radiation therapy in an attempt to achieve local control. HISTORY OF PRESENT ILLNESS: The patient has had a lengthy history of multiple skin lesions. He is noted to have an increasing lesion over his right pentecostal for the past few months which has begun oozing and bleeding. He was seen by Dr. Sanders and underwent a shave biopsy on 06/15/2019. Pathology revealed a basal cell carcinoma involving the entire specimen with notable surface ulceration and tumor at the deep and all other margins. He is now being referred to us for consideration of external beam radiation therapy. PAST MEDICAL HISTORY The patient's past medical history is positive for IgG kappa monoclonal gammopathy. He also has a history of cardiovascular disease, chronic kidney disease, colon cancer, diastolic congestive heart failure status post aortic valve repair, generalized arthritis, gastroesophageal reflux disease (GERD), ulcerative colitis and questionable myelodysplasia. In addition, the patient had an aortic valve repair in December of 2018 as well as a cardiac stent and a right hemicolectomy for his colon cancer in 2017. ALLERGIES: The patient has NO KNOWN DRUG ALLERGIES. SOCIAL HISTORY: The patient has smoked one pack of cigarettes per day for approximately 40 years. He drinks alcohol daily. FAMILY HISTORY: The patient's family history is positive for a daughter with ovarian cancer. REVIEW OF SYSTEMS: The patient's review of systems is positive for some anxiety as well as anorexia and weight loss. He has generalized weakness as well as weakness in his arms and legs and decreased energy. He has hearing loss as well as dental problems and urinary and bowel irregularities. PHYSICAL EXAMINATION: The patient is an elderly white male in no acute distress. HEENT: Exam is remarkable for multiple scars and wounds on his scalp consistent with his recent shave biopsy of those lesions on 06/15/2019. In addition, there are multiple skin changes consistent with sun damage. He has a large right basal cell lesion which is bleeding and oozing over his right pentecostal. There is no palpable preauricular, cervical, supraclavicular or infraclavicular lymphadenopathy. Lungs are clear to auscultation and percussion. Heart has a regular rate and rhythm. There is a 3/6 systolic ejection murmur audible. ASSESSMENT: I believe this patient is a candidate for electron beam therapy and I have so informed him. I have discussed with the patient in detail the potential benefits as well as possible acute and chronic sequelae of external beam radiation therapy. We discussed the logistics of treatment planning, simulation and subsequent fractionated daily radiation treatments. I have scheduled the patient for the next available simulation slot and radiation treatments will begin subsequently. Thank you for allowing us to participate in the care of this very pleasant gentleman. If I could be of any further assistance, or provide you with any information, please free to contact me at anytime. cc: MD Shorty Dodge MD
== END ==
LOC: M ONCR 10:20
PROVIDERS: ATTEND Radiology Radiation Oncology
DX: C44.319 Basal cell carcinoma of skin of other parts of face (principal)

== ENCOUNTER → 2019-07-28 | Outpatient (CLI) | payer MEDICARE, OTHER ==
[~2019-07-28] MED LIST changes: +LIDOCAINE 1% MDV 20ML VIAL As Ordered ONE; +MIDAZOLAM INJ 2 MG/2 ML VIAL (J2250) As Ordered ONE; +[UNRECOGNIZED DRUG - CODE] PO; +[UNRECOGNIZED DRUG - OTHER]; +ceFAZolin 1GM INJ (J0690 PER 500MG) As Ordered ONE; +diphenhydrAMINE INJ 50MG/ML VIAL (J1200) As Ordered ONE; +fentaNYL 100 MCG/2 ML INJECTION (J3010) As Ordered ONE
[2019-07-28 09:45] VITALS: BP 145/63
--- NOTE | 2019-07-28 14:32 | IRHP ---
[facility] IR Pre-Procedure H & P General Date of Service: Jul 28, 2019 Procedure: Same Day Surgery Interval History and Physical I have seen the patient and reviewed last H & P performed within 30 days. There is no significant interval change. History of Present Illness Chief Complaint The patient is a 89-year-old male admitted with a reason for visit of Multiple Myeloma. PRE-PROCEDURE DIAGNOSIS: MM HEART: normal rate. LUNGS: normal breathing at rest. ASA Classification ASA Classification: III-Severe systemic dis. Mallampati Score: II NPO: Yes Problems with prior sedation: No Obstructive Sleep Apnea: No Plan moderate sedation Allergies Coded Allergies: No Known Allergies (Unverified , 04/12/18) Home Medications Scheduled Aspirin (Aspirin EC), 81 MG PO DAILY, (Reported) Clopidogrel Bisulfate (Clopidogrel), 75 MG PO DAILY, (Reported) Dexamethasone (Decadron), 20 MG PO ASDIRECTED, (Reported) Furosemide (Furosemide), 40 MG PO ASDIRECTED Glucosam/Chond/Hyalu/Cf Borate (Move Free Joint Health Tablet), 1 TAB PO DAILY, (Reported) Iron Polysaccharide Complex (Ferrex 150), 300 MG PO DAILY, (Reported) Lenalidomide (Revlimid), 5 MG PO DAILY Metoprolol Succinate (Toprol Xl), 50 MG PO DAILY, (Reported) Multivitamins (Thera M Plus Tablet), 1 TAB PO DAILY, (Reported) Pantoprazole Sodium (Pantoprazole Sodium), 40 MG PO DAILY, (Reported) Durable Medical Equipment [Lift chair], (DME) VS, I&O, 24H, Fishbone Vital Signs/I&O Vital Signs Date Time Temp Pulse Resp B/P (MAP) Pulse Ox O2 Delivery O2 Flow Rate FiO2 07/28/19 09:45 71 18 97 Room Air 07/28/19 09:10 2 07/28/19 07:37 98.1 MELISSA MARROQUIN MD Jul 28, 2019 14:32
--- NOTE | 2019-07-28 14:33 | POST-OPPD ---
Postoperative Procedure Note Date Of Procedure: Jul 28, 2019 Time Of Procedure: 14:32 PREOPERATIVE DIAGNOSIS: MM POSTOPERATIVE DIAGNOSIS: same FINDINGS: patent right IJ PROCEDURE: right side port placement. ready to use, SURGEON: theresa ANESTHESIA: mod sed ESTIMATED BLOOD LOSS: < 5 ml COMPLICATIONS: none POSTOPERATIVE CONDITION: stable MELISSA MARROQUIN MD Jul 28, 2019 14:33
--- NOTE | 2019-07-28 16:34 | REP ---
IR Ultrasound and fluoroscopy-guided port placement. IR Ultrasound of the neck. IR Moderate sedation. Clinical information: Myelodysplasia. Physician: Dr. Olmedo. Procedure: The patient was advised of the benefits, risks, and alternatives of the procedure and informed consent was obtained. A time-out was performed with verification of the patient's name, MRN, site of procedure and type of procedure to be performed. The patient was positioned in the supine position on the angiographic table. The site was prepped and draped in the usual sterile fashion. Moderate sedation was performed by the physician including the presence of an independent trained observer who assisted and monitored the patient's level of consciousness and physiologic status. Following the administration of fentanyl and Versed, the physician spent 45 minutes of continuous face to face time with the patient. Ultrasound of the neck reveals a patent and compressible right internal jugular vein. A dye feeder radiograph reveals no gross abnormality. The neck and anterior chest wall were anesthetized with lidocaine. The right internal jugular vein was accessed using a microintroducer needle under ultrasound guidance, via a lateral approach. An 018 wire was advanced into the superior vena cava, the needle was removed and a microsheath was placed. An Amplatz wire was then passed into the inferior vena cava. An incision at the internal jugular vein access site and anterior chest wall were made using a scalpel. An incision was made at the anterior chest wall. A small pocket was created using a combination of blunt and sharp dissection. A tunneling device was then used to pass the catheter from the pocket to the neck puncture site. An 8-[place] Angio dynamics Smart power port was then positioned in the pocket. The catheter was then measured and cut. The introducer sheath was exchanged for a peel-away sheath. The catheter was passed through the peel-away sheath into the internal jugular vein and the peel-away sheath was removed. The port tip was positioned at the cavoatrial junction. The port was then accessed with a Wallace needle. The port flushes and aspirates well. The puncture site in the neck was closed. The chest wall incision was then closed with 2-0 Vicryl and 4-0 Monocryl. Glue and Steri-Strips were applied. A sterile dressing was then applied. The patient tolerated the procedure well and was returned to the PRU in stable condition. Estimated blood loss: <5 ml. Complications: None. Impression: 1. Successful placement of an 8-[place] Angio dynamics Smart power port via the right internal jugular vein. The port is ready for immediate use. 2. Patient to follow up in IR clinic in 2 weeks. Thank you for this referral. Electronically Signed by Shea Olmedo MD 07/28/2019 04:33 P
== END ==
LOC: M IRPRO 07:20
PROVIDERS: ATTEND Internal Medicine Hematology
DX: D46.9 Myelodysplastic syndrome, unspecified (principal)
CPT/HCPCS: 36561; 99152; 99153; C1769; C1788; C1894; J0690; J1200; J1642; J1644; J2250; J3010

== ENCOUNTER → 2019-08-16 | Outpatient (RCR) | payer MEDICARE, OTHER ==
--- NOTE | 2019-07-19 14:25 | RADONC ---
RADIATION ONCOLOGY SIMULATION NOTE DATE: 07/18/2019 CHART #: [id number] Mr. Jain was taken to the linear accelerator today for clinical setup of his electron beam right yarsanism field. Setup was accomplished without difficulty or discomfort. Radiation treatment planning is underway and radiation treatments will begin subsequently. An immobilization device was created without difficulty or discomfort. It will be used throughout the course of treatment. A lead eye shield was placed over the patient's eye in order to shield it from any radiation exposure. A 1/2-cm tissue equivalent bolus will be placed over the field. I was physically present throughout the course of clinical setup simulation.
--- NOTE | 2019-07-27 07:26 | RADONC ---
RADIATION ONCOLOGY PROGRESS NOTE DATE: 07/25/2019 CHART NUMBER: [id number] Mr. Jain underwent his first fraction of radiation to his right quaker for a dose of 250 cGy today. Radiation was tolerated without difficulty or discomfort. REVIEW OF SYSTEMS: The patient's review of systems is noncontributory. He denies nausea, vomiting, fevers, chills, night sweats, diplopia, headaches, anxiety or depression, anorexia, weight loss, visual disturbances, chest pain, urinary or bowel difficulties, bone pain or neurological problems. PHYSICAL EXAMINATION: Clearly, there was no evidence of radiation change since this was his first fraction and the remainder of his physical exam remains unchanged as well. Mr. Jain tolerated his first fraction of 250 cGy without difficulty and radiation will continue as scheduled.
--- NOTE | 2019-08-08 14:27 | RADONC ---
RADIATION ONCOLOGY PROGRESS NOTE DATE OF SERVICE: 08/08/2019 CHART NUMBER: [id number]. PROGRESS NOTE: Mr. Jain is presently at a dose of 2500 cGy to his right orthodoxy and is tolerating treatments quite well at this point with no complaints related to his radiation therapy. He is having no skin pain. REVIEW OF SYSTEMS: The patient's review of systems is unchanged. He denies nausea, vomiting, fevers, chills, night sweats, diplopia, headaches, anxiety or depression, anorexia, weight loss, visual disturbances, chest pain, urinary or bowel difficulties, bone pain, or neurological problems. PHYSICAL EXAMINATION: Physical examination was deferred as per COVID-19 precautions. Radiation is well tolerated and will continue as scheduled.
[~2019-08-16] MED LIST changes: -LIDOCAINE 1% MDV 20ML VIAL As Ordered ONE; -MIDAZOLAM INJ 2 MG/2 ML VIAL (J2250) As Ordered ONE; -ceFAZolin 1GM INJ (J0690 PER 500MG) As Ordered ONE; -diphenhydrAMINE INJ 50MG/ML VIAL (J1200) As Ordered ONE; -fentaNYL 100 MCG/2 ML INJECTION (J3010) As Ordered ONE
== END ==
LOC: M ONCR 07-18 14:23
PROVIDERS: ATTEND Radiology Radiation Oncology
DX: C44.309 Unspecified malignant neoplasm of skin of other parts of face (principal)

== ENCOUNTER 2019-08-22 09:15 | Outpatient (RCR) | payer MEDICARE, OTHER ==
--- NOTE | 2019-08-23 09:16 | RADONC ---
RADIATION ONCOLOGY TREATMENT SUMMARY DATE: 08/22/2019 CHART #: [id number] DIAGNOSIS: Basal cell carcinoma right church. ECOG PERFORMANCE STATUS: 1. TREATMENT SUMMARY: Mr. Jain is a very pleasant 89-year-old white male with the diagnosis of a basal cell carcinoma of his right church who presented to us status post surgery for consideration of postoperative radiation therapy. We treated the patient to his right church for a total dose of 5000 cGy delivered in 20 fractions of 250 cGy each. DICTATION CUT OFF.
--- NOTE | 2019-08-23 09:28 | RADONC ---
RADIATION ONCOLOGY TREATMENT SUMMARY DATE: 08/22/2019 CHART NUMBER: [id number] DIAGNOSIS: Basal cell carcinoma of right religion. ECOG PERFORMANCE STATUS: 0. TREATMENT SUMMARY: Mr. Jain is a very pleasant 89-year-old white male with the diagnosis of a basal cell carcinoma involving his right religion who presented to us status post shave biopsy for consideration of postoperative radiation therapy. We treated the patient to his right religion for a total dose of 5000 cGy delivered in 20 fractions of 250 cGy each over 28 elapsed days from 07/25/2019 through 08/22/2019. The patient's right religion was treated on a linear accelerator utilizing a 6 MeV electron beam prescribed to the 90% isodose line via en face technique. Mr. Jain tolerated his treatments quite well with no difficulties related to his radiation therapy. The patient is scheduled to see me again in 1 month for further followup. He will also continue to be followed by his other physicians as well. cc: MD Shorty Dodge MD
[2019-09-14] MEDS ORDERED: REVL5CAP2 PO (11:40)
[2019-09-15] MEDS ORDERED: DOXY-350 PO (20:36)
== END 2019-09-15 ==
LOC: M ONCR 09:15
PROVIDERS: ATTEND Radiology Radiation Oncology
DX: C44.309 Unspecified malignant neoplasm of skin of other parts of face (principal)

== ENCOUNTER → 2019-09-06 | Outpatient (POV) | payer MEDICARE, OTHER ==
--- NOTE | 2019-09-07 09:21 | IRPN ---
[facility] IR Progress Note IR Progress Note DATE: Sep 06, 2019 Tele follow up FOLLOW-UP: status post port placement, patient doing well. No pain, fever or discomfort. Port being used without issues. ON EXAMINATION: No video conference available on patient side, IMPRESSION: Doing well status post port placement. No further follow up needed unless scheduled by patient and or referring provider. Thank you for this referral Allergies Coded Allergies: No Known Allergies (Unverified , 04/12/18) MELISSA MARROQUIN MD Sep 07, 2019 09:21
== END ==
LOC: M IRPOV 08:04
PROVIDERS: ATTEND Radiology Diagnostic Radiology
DX: Z45.2 Encounter for adjustment and management of vascular access device (principal)

== ENCOUNTER 2019-09-15 18:33 | Emergency (ER) | payer MEDICARE, OTHER ==
[~2019-09-15] VITALS: Ht 170.2 cm; Wt 59.1 kg
--- NOTE | 2019-09-15 19:16 | REPVR ---
PROCEDURE INFORMATION: Exam: CT Maxillofacial Without Contrast Exam date and time: 09/15/2019 6:51 PM Age: 89 years old Clinical indication: Injury or trauma; Fall; Initial encounter; Blunt trauma (contusions or hematomas); Nose; Additional info: Head injury TECHNIQUE: Imaging protocol: Computed tomography images of the face without contrast. Radiation optimization: All CT scans at this facility use at least one of these dose optimization techniques: automated exposure control; mA and/or kV adjustment per patient size (includes targeted exams where dose is matched to clinical indication); or iterative reconstruction. COMPARISON: No relevant prior studies available. FINDINGS: Orbits: The status post bilateral scleral banding. Bones/joints: Left with buckling of the mid nasal septum may represent acute nasal septal fracture. Multiple nasal fractures. Fractured maxillary spine. Sinuses: Inflammatory changes in both ethmoid and maxillary sinuses with air-fluid levels demonstrated dependently in the maxillary sinuses either posttraumatic or represent acute sinusitis. Dental: Absent tooth in the left anterior maxilla may be posttraumatic. Nasopharynx: Retained secretions in the nasopharynx. Soft tissues: Left frontal soft tissue laceration. Other findings: Upper lower dentures demonstrated. IMPRESSION: 1. Left frontal soft tissue laceration. No fracture. 2. Inflammatory changes in both ethmoid and maxillary sinuses with air-fluid levels demonstrated dependently in the maxillary sinuses either posttraumatic or represent acute sinusitis. 3. Left with buckling of the mid nasal septum may represent acute nasal septal fracture. 4. Multiple nasal fractures. 5. Fractured maxillary spine. Electronically signed by: Cruzito Olmstead On 09/15/2019 19:16:19 PM
--- NOTE | 2019-09-15 19:22 | REPVR ---
PROCEDURE INFORMATION: Exam: CT Cervical Spine Without Contrast Exam date and time: 09/15/2019 6:51 PM Age: 89 years old Clinical indication: Injury or trauma; Fall; Initial encounter; Blunt trauma; Additional info: Head injury on blood thinners TECHNIQUE: Imaging protocol: Computed tomography images of the cervical spine without contrast. Radiation optimization: All CT scans at this facility use at least one of these dose optimization techniques: automated exposure control; mA and/or kV adjustment per patient size (includes targeted exams where dose is matched to clinical indication); or iterative reconstruction. COMPARISON: No relevant prior studies available. FINDINGS: Vertebrae: Multilevel facet joint arthropathy. Discs/Spinal canal/Neural foramina: Disc space narrowing at C3-C4 through C6-C7 with intervertebral osteophytes. Mild anterolisthesis of C7 on T1 likely chronic degenerative change although correlation with clinical exam to exclude acute ligamentous injury suggested. Degenerative spondylosis throughout the cervical spine with severe foraminal stenosis on the left at C3, C4, severe foraminal stenosis on the right and mild foraminal stenosis on the left at C5, moderate bilateral foraminal stenosis at C6 secondary to uncinate joint hypertrophic changes. Multilevel disc osteophyte complexes demonstrated resulting in varying degrees of effacement of the ventral subarachnoid space with a right posterolateral disc protrusion at C3-C4 resulting in right kareem cord impingement. Soft tissues: Unremarkable. Sinuses: Inflammatory changes in the visualized maxillary and ethmoid sinuses. Nasopharynx: Retained secretions in the nasopharynx. Lungs: Bilateral apical pleural parenchymal scarring. IMPRESSION: 1. Disc space narrowing at C3-C4 through C6-C7 with intervertebral osteophytes. Mild anterolisthesis of C7 on T1 likely chronic degenerative change although correlation with clinical exam to exclude acute ligamentous injury suggested. 2. Moderate degenerative spondylosis with right kareem cord impingement at C3-C4. 3. No acute findings. Electronically signed by: Cruzito Olmstead On 09/15/2019 19:22:11 PM
--- NOTE | 2019-09-15 19:25 | REPVR ---
PROCEDURE INFORMATION: Exam: CT Head Without Contrast Exam date and time: 09/15/2019 6:51 PM Age: 89 years old Clinical indication: Injury or trauma; Fall; Initial encounter; Blunt trauma (contusions or hematomas); Additional info: Head injury on blood thinners TECHNIQUE: Imaging protocol: Computed tomography of the head without contrast. Radiation optimization: All CT scans at this facility use at least one of these dose optimization techniques: automated exposure control; mA and/or kV adjustment per patient size (includes targeted exams where dose is matched to clinical indication); or iterative reconstruction. COMPARISON: No relevant prior studies available. FINDINGS: Brain: There is moderate age related parenchymal volume loss. White matter changes are demonstrated in the subcortical, centrum semiovale and periventricular white matter consistent with age related small vessel white matter angiopathic gliosis. Diffuse cerebellar atrophy. Chronic infarct right anterior external capsule. Ventricles: The degree of ventricular dilatation is normal for age and/or degree of atrophy present. Bones/joints: Unremarkable. No acute fracture. Sinuses: Inflammatory versus posttraumatic changes in the ethmoid and maxillary sinuses. Mastoid air cells: Visualized mastoid air cells are well aerated. Soft tissues: Left frontal soft tissue laceration. Vasculature: Moderate atherosclerotic changes in the intracranial carotid arteries. Nasopharynx: Retained secretions in the visualized portions of the nasopharynx. IMPRESSION: 1. There is moderate age related parenchymal volume loss. White matter changes are demonstrated in the subcortical, centrum semiovale and periventricular white matter consistent with age related small vessel white matter angiopathic gliosis. 2. The degree of ventricular dilatation is normal for age and/or degree of atrophy present. 3. No acute intracranial findings. Electronically signed by: Cruzito Olmstead On 09/15/2019 19:24:56 PM
[2019-09-15 19:39] LABS: HEMATOCRIT 31.4 % (42.0-52.0); HEMOGLOBIN 9.6 g/dl (13.5-17.5); MEAN CORPUSCULAR HEMOGLOBIN 30.8 pg (27.0-33.0); MEAN CORPUSCULAR HGB CONC 30.6 g/dl (32.0-36.5); MEAN CORPUSCULAR VOLUME 100.6 fl (80.0-96.0); PLATELET COUNT, AUTOMATED 142 10^3/uL (150-450); RED BLOOD COUNT 3.12 10^6/uL (4.30-6.10)
[2019-09-15] MEDS ORDERED: BOOSTRIX/ADACEL VACCINE (DIPHTH/PERTUSS/ACELL/TETANUS) 0.5ML SYR IM ONE (20:15)
[2019-09-15] MEDS ORDERED: DOXY-350 PO (20:36)
[2019-09-15] MEDS ORDERED: DOXYCYCLINE HYCLATE 100MG TABLET PO ONE (20:45)
[2019-09-15 20:51] VITALS: BP 173/77
--- NOTE | 2019-09-17 17:10 | ED PDOC ---
Post-Departure Follow-Up dr maya faxed formal report of ct c spine for fu Louis Britt MD September 17, 2019 17:10
== END 2019-09-15 21:48 | disposition home or self-care (01) ==
LOC: M ED 18:33
DX: S01.21XA Laceration without foreign body of nose, initial encounter (principal); S02.2XXA Fracture of nasal bones, initial encounter for closed fracture; S02.401A Maxillary fracture, unspecified side, initial encounter for closed fracture; I67.82 Cerebral ischemia; G93.89 Other specified disorders of brain; R04.0 Epistaxis; W01.198A Fall on same level from slipping, tripping and stumbling with subsequent striking against other object, initial encounter; Y92.480 Sidewalk as the place of occurrence of the external cause; Y93.01 Activity, walking, marching and hiking; Y99.8 Other external cause status; I50.9 Heart failure, unspecified; E11.9 Type 2 diabetes mellitus without complications; D47.2 Monoclonal gammopathy; M54.9 Dorsalgia, unspecified; D61.818 Other pancytopenia; F32.9 Major depressive disorder, single episode, unspecified; Z79.899 Other long term (current) drug therapy; Z79.82 Long term (current) use of aspirin; Z79.02 Long term (current) use of antithrombotics/antiplatelets; Z23 Encounter for immunization

== ENCOUNTER → 2019-09-21 | Outpatient (CLI) | payer MEDICARE, OTHER ==
[~2019-09-21] MED LIST changes: +DOXY-350 PO
--- NOTE | 2019-09-24 14:09 | RADONC ---
RADIATION ONCOLOGY FOLLOWUP NOTE DATE: 09/21/2019 This is a telemedicine visit. The patient was informed of the risks including security breech, technological failure, inability to perform a comprehensive physical exam which could delay or prevent an accurate diagnosis, and potential complications from treatment decisions rendered over a telemedicine platform. The patient understands and consented to the use of telehealth services phone only. CHART NUMBER: [id number] DIAGNOSIS: Basal cell carcinoma of right mormonism. ECOG PERFORMANCE STATUS: 1 FOLLOWUP NOTE: Mr. Jain is a very pleasant 89-year-old white male with the diagnosis of a basal cell carcinoma of his right mormonism who is presenting to us today for routine followup visit 1 month post completion of external beam radiation therapy. The patient presents today reporting that he is doing quite well with no complaints at this time related to his radiation therapy or disease. He reports that he only has a slight small little scab present over that mormonism. He has no other complaints. REVIEW OF SYSTEMS: The patient's review of systems is positive for physical limitations secondary to his age. He has general weakness in his arms and legs, as well as some hearing loss and dental problems. He has urinary and bowel irregularities. His review of systems is otherwise noncontributory. PHYSICAL EXAMINATION: Physical exam was deferred at this time as per COVID-19 precautions. This was a telephone consultation. ASSESSMENT: The patient is clinically doing quite well at this point. I have scheduled him to see us again in 6 months for further followup. I have instructed him that if everything is fine and he has no lumps, bumps or issues he can always cancel that appointment. In addition, if he is being followed by Dr. Sanders, then that appointment can be cancelled as well. The patient has my cell phone number and office number, and I have instructed him to call us if his skin shows any sign of recurrence or if his little scab does not heal up before the 6 month followup. cc: MD Shorty Dodge MD
== END ==
LOC: M ONCR 09:30
PROVIDERS: ATTEND Radiology Radiation Oncology
DX: C44.309 Unspecified malignant neoplasm of skin of other parts of face (principal)

== ENCOUNTER 2020-01-17 09:37 | Outpatient (CLI) | payer MEDICARE, OTHER ==
[~2020-01-17] VITALS: Ht 175.3 cm; Wt 60.0 kg
[~2020-01-17 09:37] MED LIST changes: +PANT40TA29 PO; -PANT40TA3 PO
[2020-01-17] MEDS ORDERED: diphenhydrAMINE 25MG CAP As Ordered ONE (09:57)
[2020-01-17] MEDS ORDERED: ACETAMINOPHEN TAB 650MG DOSE (2X325MG) As Ordered ONE (09:58)
[2020-01-17 10:04] VITALS: BP 152/74
[2020-01-17 10:15] VITALS: BP 152/74
[2020-01-17] MEDS ORDERED: ACETAMINOPHEN TAB 650MG DOSE (2X325MG) PO ONE (10:15)
[2020-01-17] MEDS ORDERED: diphenhydrAMINE 25MG CAP PO ONE (10:15)
[2020-01-17 10:30] VITALS: BP 133/67
[2020-01-17] MEDS ORDERED: SODIUM CHLORIDE 0.9% INJ 10 ML SYR IV PRN (10:45)
[2020-01-17 11:15] VITALS: BP 145/66
[2020-01-17] MEDS ORDERED: FUROSEMIDE 20MG/2ML VIAL (J1940) As Ordered ONE (11:52)
[2020-01-17 11:55] VITALS: BP 164/69
[2020-01-17] MEDS ORDERED: FUROSEMIDE 20MG/2ML VIAL (J1940) IV ONE (12:00)
[2020-01-17 12:25] VITALS: BP 145/66
[2020-01-18] MEDS ORDERED: SODIUM CHLORIDE 0.9% INJ 10 ML SYR IV SCH (09:00)
[2020-01-30] MEDS ORDERED: REVL5CAP2 PO ×2 (15:09→15:34)
[2020-03-06] MEDS ORDERED: REVL5CAP2 PO (15:33)
== END 2020-01-17 12:30 | disposition home or self-care (01) ==
LOC: M INFU 09:37
PROVIDERS: ATTEND Internal Medicine Medical Oncology
DX: D46.9 Myelodysplastic syndrome, unspecified (principal)
CPT/HCPCS: 36430; 96374; J1940; P9016

== ENCOUNTER → 2020-04-04 | Outpatient (CLI) | payer MEDICARE, OTHER ==
--- NOTE | 2020-04-04 14:35 | RADONC ---
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 He completed RT 50 Gy in 20 fractions with electrons on 08/22/19. Diagnosis/Treatment History Oncologic History Referred by dermatology (Dr. Sanders) for a large biopsy proven 3-4cm right mormon BCC with superficial ulceration. States had been present for most of 2018. Developed ulceration somewhere Fall 2018, which prompted biopsy on 06/15/19. 07/25/19-08/22/19 50 Gy in 20 fractions with electrons. 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 Note that he had some redness of the irradiated skin on the right mormon but that before the end of treatment the ulceration which was present had healed. He reports now that the skin there which was previously red and raised is now smooth and pale compared to the surrounding skin. He has some patchy hair loss about the right pre-auricular area, He has no dry eye or blurred vision on the right. No pain whatsoever. Current Therapy Observation Stage Stage II T2N0M0 Social History: Non-smoker Non-drinker Allergies / Meds Allergies: Coded Allergies: No Known Allergies (Unverified , 04/12/18) Home Meds Active Scripts Lenalidomide (Revlimid) 5 Mg Capsule, 5 MG PO DAILY for 28 Days, #28 CAP 1 Refill Prov:KAYLYN TORREZ MD 03/06/20 Reported Medications Metoprolol Succinate (Toprol Xl) 50 Mg Tab.er.24h, 50 MG PO DAILY for 30 Days, #30 TAB 07/12/19 Clopidogrel Bisulfate (Clopidogrel) 75 Mg Tablet, 75 MG PO DAILY 11/17/18 Aspirin (Aspirin EC) 81 Mg Tablet.dr 81 MG PO DAILY 11/17/18 Glucosam/Chond/Hyalu/Cf Borate (Move Free Joint Health Tablet) 1 Tab Tab, 1 TAB PO DAILY, TAB 02/24/18 Multivitamins (Thera M Plus Tablet) 1 Tab Tab, 1 TAB PO DAILY, TAB 07/07/16 Review of Systems Review of Systems Constitutional: Denies: ROS Unabtainable, Chills, Fever, Malaise, Night Sweats, Weakness, Fatigue, Weight Loss, Lethargy, Normal appetite, Other symptoms Eyes: Denies: Pain, Vision change, Conjunctivae inflammation, Eyelid inflammation, Redness, Other HEENT: Denies: Head Aches, Ear Pain, Dysphagia, Sinus Congestion, Post Nasal Drip, Sore Throat, Epistaxis, Other Symptoms Skin: Denies: Rash, Lesions, Jaundice, Bruising, Other Breast: Denies: New Breast Lumps / Masses, Nipple Retraction, Nipple Discharge, Breast Skin Changes, Breast Pain or Tenderness, Other Breast Complaints Pulmonary: Denies: Dyspnea, Cough, Pleuritic Chest Pain, Other Symptoms Cardiovascular: Denies: Chest Pain, Palpitations, Orthopnea, Paroxysmal Noc. Dyspnea, Edema, Lt Headedness, Other Symptoms Gastrointestinal: Denies: Nausea, Vomiting, Abdominal Pain, Diarrhea, Constipation, Melena, Hematochezia, Other Symptoms Genitourinary: Denies: Dysuria, Frequency, Incontinence, Hematuria, Retention, Other Symptoms Hematologic: Denies: Bruising, Bleeding Excessively, Petecchia, Purpura, Enlarged Lymph Nodes, Other Hematologic Endocrine: Denies: Polydipsia, Polyphagia, Polyuria, Heat Intolerance, Cold Intolerance, Other Endocrine Sx Musculoskeletal: Denies: Neck pain, Shoulder pain, Arm pain, Back pain, Hand pain, Leg pain, Foot pain, Joint pain, Muscle pain, Spasms, Gout, Joint sweling, Muscle stiffness, Midthoracic pain, Other Neurological: Denies: Weakness, Numbness, Incoordination, Change in Speech, Confusion, Seizures, Other Symptoms Psych: Denies: Mood Normal, Anxiety, Depression, Memory Issues, Thoughts of Self Harm, Anger, Thoughts of harming Other, Other Psych Physical Examination Other Physical Findings Unable to obtain as this is a telephone visit General: Alert and oriented to person place and self Diagnostic and Laboratory Diagnostic Review Radiologic images, relevant labs and pathology reports were personally reviewed and discussed with Mr. Jain. Assessment and Plan Impression Assessment Mr. Jain is a 89 year old male with a history of T2N0M0 basal cell carcinoma of the right mormon. He completed RT 50 Gy in 20 fractions with electrons on 08/22/19. By his own report today he is doing well and he has no concerns. The area treated as he describes has improved significantly without any lasting side effects except hypopigmentation and some patchy alopecia at the margin of the field. I explained that his report is reassuring of a good response but that it will be essential to pay close attention to the lesion with an in-person exam in the future (post-covid). Therefore we agreed he would come see me in 6 months for a skin exam. I also encouraged him to schedule an appointment to be seen by dermatology in the coming year. He stated he would do so. Performance Status ECOG 1 Plan Follow up in 6 months in person Patient to call for a dermatology follow up as well Mr. Jain was encouraged to call with questions or concerns in the interim period. TOVA CANTU MD Apr 04, 2020 14:35
== END ==
LOC: M ONCR 11:07
PROVIDERS: ATTEND General Practice
DX: Z85.828 Personal history of other malignant neoplasm of skin (principal); Z92.3 Personal history of irradiation